=== PATIENT | male | born 1990 | race Caucasian/White ===

== ENCOUNTER 2016-12-03 23:43 | Emergency (ER) | payer BC ==
[~2016-12-03] VITALS: Ht 177.8 cm; Wt 104.3 kg
[~2016-12-03 23:43] MED LIST: METH10TA4 PO; METH5TAB4 PO; MULT-506 PO; SUMA50TA15 PO
[2016-12-03 23:45] VITALS: Ht 177.8 cm; Wt 104.3 kg
[2016-12-04] MEDS ORDERED: SODIUM CHLORIDE 0.9% 1000ML 1,000 ML IV STA ×3 (00:18→04:19)
[2016-12-04] MEDS ORDERED: ONDANSETRON INJ 2 MG/ML 2 ML VIAL IV STA (00:18)
[2016-12-04] MEDS ORDERED: MoRPHine SULFATE 10 MG/ML CARP/VIAL IV STA (00:18)
[2016-12-04 00:28] LABS: BASO % 0.1 %; BASO ABS # 0.01 K/uL (0-0.2); COMPLETE YES; EOS % 0.6 %; IG% 0.3 %; LYMPH % 12.7 %; MEAN CELL VOLUME 89.3 fL (80-100); MEAN CORPUSCULAR HEMOGLOBIN 29.5 pg (25-34); MEAN PLATELET VOLUME 9.2 fL (7.4-10.4); MONO % 7.4 %; NEUT % 78.9 %; PLATELET COUNT 398 K/uL (130-400); RED BLOOD COUNT 5.15 M/uL (4.7-6.1); WHITE BLOOD COUNT 18.06 K/uL (4.8-10.8)
[2016-12-04 00:47] LABS: BUN/CREATININE RATIO 6.8 (10-20); CALCIUM 9.2 mg/dl (8.5-10.1); POTASSIUM 3.9 mmol/L (3.5-5.1)
[2016-12-04 00:49] LABS: ALB/GLOB RATIO 0.9 (0.9-2)
[2016-12-04] MEDS ORDERED: OPTIRAY 320 IV PRN (01:15)
[2016-12-04 01:29] LABS: URINE APPEARANCE CLEAR (CLEAR); URINE BILIRUBIN NEG (NEG); URINE COLOR DK YELLOW; URINE EPITHELIAL CELL AUTO 0-5 /lpf (0-5); URINE NITRITE NEG (NEG); URINE PH 7.5 (4.5-7.5); URINE SPECIFIC GRAVITY 1.017 (1.000-1.030); UROBILINOGEN NEG (NEG); ZZUR CULT IF INDIC CLEAN CATCH NO
[2016-12-04] MEDS ORDERED: HYDROmorphone INJ 0.5 MG/0.5 ML SYR IV STA ×2 (01:33→03:52)
[2016-12-04 01:42] LABS: MANUAL MICROSCOPIC REQUIRED? NO; REVIEW REQ? NO; SULFASALICYLIC ACID NEG (NEG)
[2016-12-04] MEDS ORDERED: IMIPENEM/CILASTATIN IV 500 MG in DEXTROSE 5% 100ML 100 ML IV STA (02:36)
[2016-12-04] MEDS ORDERED: ACETAMINOPHEN IV 100 ML IV STA (02:57)
--- NOTE | 2016-12-04 03:10 | EMERGENCY ROOM VISIT NOTE ---
History First contact with patient: 23:54 Chief Complaint: GI ASSESSMENT Stated Complaint: RECTAL BLEEDING,CRAMPS Nursing Triage Summary: Left lower abdominal pain and rectal bleeding. History of same with diverticulitis. History of Present Illness The patient is a 26 year old male who presents to the Emergency Room with complaints of left lower abdominal pain and blood in his stools. The patient states that his symptoms have been ongoing for the past 2 days. He reports severe pain in his abdomen which he rates a 10/10. Pain is worse with movement. He has a history of diverticulitis and states that he had 2 flareups in July and January of last year. He has never needed hospitalized for these flareups. He denies history of abdominal surgery. He states that he has had cramping pain in the abdomen and decreased appetite. He has felt feverish. He denies any nausea/vomiting, chest pain, shortness of breath or urinary symptoms. The patient states he is otherwise healthy. Review of Systems A complete 10 point review of systems was reviewed with the patient with pertinent positives and negatives as per history of present illness. All else were negative. Past Medical/Surgical History Surgical Problems: (1) Artie teeth extracted Family History Diabetes mellitus Hypertension Social History Smoking Status: Current Every Day Smoker Alcohol Use: none Drug Use: none Marital Status: single Housing Status: lives with family Occupation Status: employed Current/Historical Medications Scheduled Methylphenidate (Ritalin), 10 MG PO QAM Methylphenidate (Ritalin), 5 MG PO QPM Scheduled PRN Sumatriptan Succinate (Imitrex), 50 MG PO UD PRN for Headache Physical Exam Vital Signs Date Time Temp Pulse Resp B/P (MAP) Pulse Ox O2 Delivery O2 Flow Rate FiO2 12/04/16 06:39 98 16 139/95 95 12/04/16 05:44 93 20 131/90 94 Room Air 12/04/16 05:05 37.0 95 16 99/60 95 Room Air 12/04/16 04:03 100 16 143/77 94 Room Air 12/04/16 03:28 103 12/04/16 03:19 38.0 107 16 147/90 94 Room Air 12/04/16 01:25 108 20 163/93 95 Room Air 12/03/16 23:45 37.6 109 16 157/100 96 Room Air Physical Exam VITALS: Vitals are noted on the nurse's note and reviewed by myself. Vital signs stable. GENERAL: This is a 26-year-old male, moaning in pain, well-developed well- nourished. MOUTH: Mucous membranes moist. HEART: Tachycardic, regular rhythm without murmurs gallops or rubs. LUNGS: Clear to auscultation bilaterally without wheezes, rales or rhonchi. ABDOMEN: Positive bowel sounds x 4. Soft, tenderness to palpation in the left lower quadrant and across the lower abdomen. No guarding or rebound tenderness. NEURO: Patient was alert and oriented to person place and time. Medical Decision & Procedures ER Provider Diagnostic Interpretation: CT ABDOMEN & PELVIS: Distal sigmoid wall thickening with surrounding inflammatory changes and 4.8 x 4.0 x 3.0 cm rim enhancing air/fluid collection in sun for both from inflamed segment of colon consistent with pericolonic abscess with apparent intramural component. Sigmoid diverticula are present in this region. Findings are suggestive of sigmoid perforation with pericolonic/intramural abscess, likely in the setting of acute sigmoid diverticulitis. Given similar location of diverticulitis on prior CT, recommend follow-up to exclude underlying pathology. Mildly prominent (although subcentimeter) retroperitoneal lymph nodes, likely reactive to 4 mentioned sigmoid diverticulitis. No bowel obstruction or free intraperitoneal air. Enlarged fatty liver. Radiologist: Veronica Deras MD Laboratory Results 12/04/16 00:10 Red Blood Count 5.15, Mean Corpuscular Volume 89.3, Mean Corpuscular Hemoglobin 29.5, Mean Corpuscular Hemoglobin Concent 33.0, Mean Platelet Volume 9.2, Neutrophils (%) (Auto) 78.9, Lymphocytes (%) (Auto) 12.7, Monocytes (%) (Auto) 7.4, Eosinophils (%) (Auto) 0.6, Basophils (%) (Auto) 0.1, Neutrophils # (Auto) 14.26, Lymphocytes # (Auto) 2.30, Monocytes # (Auto) 1.33, Eosinophils # (Auto) 0.10, Basophils # (Auto) 0.01 12/04/16 00:10 Test 12/04/16 00:00 12/04/16 00:10 Urine Color DK YELLOW Urine Appearance CLEAR (CLEAR) Urine pH 7.5 (4.5-7.5) Urine Specific [place] 1.017 (1.000-1.030) Urine Protein NEG (NEG) Urine Glucose (UA) NEG (NEG) Urine Ketones TRACE (NEG) Urine Occult Blood NEG (NEG) Urine Nitrite NEG (NEG) Urine Bilirubin NEG (NEG) Urine Urobilinogen NEG (NEG) Urine Leukocyte Esterase NEG (NEG) Urine WBC (Auto) 1-5 /hpf (0-5) Urine RBC (Auto) 0-4 /hpf (0-4) Urine Hyaline Casts (Auto) 1-5 /lpf (0-5) Urine Epithelial Cells (Auto) 0-5 /lpf (0-5) Urine Bacteria (Auto) NEG (NEG) White Blood Count 18.06 K/uL (4.8-10.8) Red Blood Count 5.15 M/uL (4.7-6.1) Hemoglobin 15.2 g/dL (14.0-18.0) Hematocrit 46.0 % (42-52) Mean Corpuscular Volume 89.3 fL (80-100) Mean Corpuscular Hemoglobin 29.5 pg (25-34) Mean Corpuscular Hemoglobin Concent 33.0 g/dl (32-36) Platelet Count 398 K/uL (130-400) Mean Platelet Volume 9.2 fL (7.4-10.4) Neutrophils (%) (Auto) 78.9 % Lymphocytes (%) (Auto) 12.7 % Monocytes (%) (Auto) 7.4 % Eosinophils (%) (Auto) 0.6 % Basophils (%) (Auto) 0.1 % Neutrophils # (Auto) 14.26 K/uL (1.4-6.5) Lymphocytes # (Auto) 2.30 K/uL (1.2-3.4) Monocytes # (Auto) 1.33 K/uL (0.11-0.59) Eosinophils # (Auto) 0.10 K/uL (0-0.5) Basophils # (Auto) 0.01 K/uL (0-0.2) RDW Standard Deviation 40.8 fL (36.4-46.3) RDW Coefficient of Variation 12.5 % (11.5-14.5) Immature Granulocyte % (Auto) 0.3 % Immature Granulocyte # (Auto) 0.06 K/uL (0.00-0.02) Anion Gap 8.0 mmol/L (3-11) Est Creatinine Clear Calc Drug Dose 133.0 ml/min Estimated GFR () 118.2 Estimated GFR (Non- 102.0 BUN/Creatinine Ratio 6.8 (10-20) Lactic Acid Level 1.5 mmol/L (0.4-2.0) Calcium Level 9.2 mg/dl (8.5-10.1) Total Bilirubin 0.8 mg/dl (0.2-1) Aspartate Amino Transf (AST/SGOT) 23 U/L (15-37) Alanine Aminotransferase (ALT/SGPT) 47 U/L (12-78) Alkaline Phosphatase 68 U/L (45-117) Total Protein 8.9 gm/dl (6.4-8.2) Albumin 4.1 gm/dl (3.4-5.0) Globulin 4.8 gm/dl (2.5-4.0) Albumin/Globulin Ratio 0.9 (0.9-2) Lipase 105 U/L (73-393) Medications Administered Medications (Trade) Dose Ordered Sig/Allie Route Start Time Stop Time Status Last Admin Dose Admin Sodium Chloride 1,000 ml @ 999 mls/hr Q1H1M STAT IV 12/04/16 00:18 12/04/16 01:18 DC 12/04/16 00:26 999 MLS/HR Ondansetron HCl (Zofran Inj) 4 mg NOW STAT IV 12/04/16 00:18 12/04/16 00:20 DC 12/04/16 00:26 4 MG Morphine Sulfate (MoRPHine SULFATE INJ) 6 mg NOW STAT IV 12/04/16 00:18 12/04/16 00:20 DC 12/04/16 00:27 6 MG Hydromorphone HCl (Dilaudid Inj) 0.5 mg NOW STAT IV 12/04/16 01:33 12/04/16 01:34 DC 12/04/16 01:38 0.5 MG Imipenem/ Cilastatin Sodium 500 mg/Dextrose 110 ml @ 100 mls/hr NOW STAT IV 12/04/16 02:36 12/04/16 03:41 DC 12/04/16 03:21 100 MLS/HR Acetaminophen 100 ml @ 400 mls/hr NOW STAT IV 12/04/16 02:57 12/04/16 03:11 DC 12/04/16 03:04 400 MLS/HR Sodium Chloride 1,000 ml @ 999 mls/hr Q1H1M STAT IV 12/04/16 03:06 12/04/16 04:06 DC 12/04/16 03:21 999 MLS/HR Hydromorphone HCl (Dilaudid Inj) 0.5 mg NOW STAT IV 12/04/16 03:52 12/04/16 03:53 DC 12/04/16 04:00 0.5 MG Sodium Chloride 1,000 ml @ 80 mls/hr [id number] STAT IV 12/04/16 04:19 12/04/16 16:48 12/04/16 05:04 80 MLS/HR Nicotine (Nicoderm Cq 21MG Patch) 1 patch NOW STAT TD 12/04/16 04:26 12/04/16 04:28 DC 12/04/16 05:01 1 PATCH Fentanyl Citrate (Fentanyl Inj) 50 mcg NOW STAT IV 12/04/16 06:00 12/04/16 06:01 DC 12/04/16 06:05 50 MCG ED Course The patient was evaluated as above. Labs were drawn and IV access was obtained. Patient was medicated with 1 L normal saline solution, 6 mg of morphine IV and [address] of the abdomen and pelvis was performed and read by statrad as above. Patient complains of continued pain after CT and was given 0.5 mg Dilaudid IV. Blood cultures were drawn. Patient was given a dose of Primaxin. Case was discussed with the general surgeon on-call, Dr. Gallegos. He recommended transfer to a facility with interventional radiology. I discussed the case with Dr. Garcia of general surgery at [facility]. She requested that I speak with the radiologist to confirm that there was a drainable abscess. Case was discussed with the statrad radiologist, Dr. Deras. She confirmed that there was an abscess and is unsure if it will drainable by IR. Case was again discussed with Dr. Garcia. She spoke with the ER and they will accept the patient in transfer. Findings were discussed with the patient. He verbalized his understanding. He was given 0.5 mg Dilaudid for pain. Patient was transferred via ALS to [facility] for further care. Medical Decision Differential diagnosis includes diverticulitis, colitis, fistula, abscess, perforation, among others. The patient is a 26-year-old male with past medical history of diverticulitis who presents today complaining of left lower quadrant pain and rectal bleeding. Labs revealed a leukocytosis of 18,000. Lactic acid was not elevated. IV fluids were started immediately given patient's tachycardia. He was given IV pain medication and IV Tylenol for fever. CT scan showed findings consistent with perforation and abscess secondary to diverticulitis. Case was discussed with the general surgeon on-call, Dr. Gallegos, who recommended transfer to a facility with interventional radiology. Case was discussed with general surgery at [facility], who accepted the patient in transfer. The patient remained stable throughout his stay in the emergency department and was transferred via ALS to [facility]. Medication Reconcilliation Current Medication List: was personally reviewed by me Blood Pressure Screening Patient's blood pressure: Elevated blood pressure Blood pressure disposition: Elevated BP felt to be situational Impression Primary Impression: Diverticulitis of large intestine with perforation and abscess Departure Information Referrals Freeman Wang,D.OYamil (PCP) Patient Instructions [facility] Problem Qualifiers Primary Impression: Diverticulitis of large intestine with perforation and abscess Diverticulitis bleeding: with bleeding Qualified Codes: K57.21 - Diverticulitis of large intestine with perforation and abscess with bleeding
[2016-12-04] MEDS ORDERED: NICOTINE 21 MG/24 HR TDSY TD STA (04:26)
[2016-12-04 05:05] VITALS: TEMP 37
[2016-12-04] MEDS ORDERED: FENTANYL CITRATE INJ 50 MCG/1 ML 2 ML VIAL IV STA (06:00)
[2016-12-04 06:39] VITALS: BP 139/95; PULSE 98; O2SAT 95
--- NOTE | 2016-12-04 07:32 | DIAGNOSTIC IMAGING REPORT ---
ABDOMEN AND PELVIS CT WITH IV CONTRAST CT DOSE: 916.59 mGy.cm HISTORY: Left lower quadrant abdominal pain. TECHNIQUE: Multiaxial CT images of the abdomen and pelvis were performed following the use of intravenous contrast. A dose lowering technique was utilized adhering to the principles of ALARA. COMPARISON STUDY: Abdomen and pelvis CT 12/26/2015. FINDINGS: The lung bases are clear. Severe hepatic steatosis, unchanged. The gallbladder, spleen, adrenal glands, pancreas, and kidneys are unremarkable. There are few prominent retroperitoneal lymph nodes which have slightly increased in size. Dominant lymph node measures 9 mm. These may be reactive. Normal appendix. Normal bladder. Tiny fat-containing left inguinal hernia. Thickening within the mid sigmoid colon with surrounding pericolonic fat stranding consistent with acute diverticulitis. There is a multiloculated perisigmoid abscess which measures approximately 4.7 x 3.7 cm. IMPRESSION: 1. Acute sigmoid diverticulitis with a 4.7 x 3.7 cm pericolonic abscess. Follow-up is recommended once the patient's diverticulitis has resolved to exclude the less likely possibility of underlying colonic lesion. 2. Hepatic steatosis. 3. Prominent retroperitoneal lymph nodes which may be reactive. This also bears watching on future examinations. Electronically signed by: Haseeb Vasquez M.D. 12/04/2016 7:30 AM Dictated Date/Time: 12/04/2016 7:25 AM
== END 2016-12-04 06:42 | disposition short-term general hospital (02) ==
LOC: C.EDB 23:44
DX: K57.21 Diverticulitis of large intestine with perforation and abscess with bleeding (principal); R00.0 Tachycardia, unspecified; F17.200 Nicotine dependence, unspecified, uncomplicated; Z83.3 Family history of diabetes mellitus; Z82.49 Family history of ischemic heart disease and other diseases of the circulatory system

== ENCOUNTER 2017-05-02 21:33 | Inpatient (IN) | payer BC, OTHER ==
[~2017-05-02] VITALS: Ht 177.8 cm; Wt 100.2 kg
[~2017-05-02 21:33] MED LIST changes: +ASPI-390 PO; +CHN/1 PO; +DOXY100C76 PO; +IBUP-103 PO; -MULT-506 PO
--- NOTE | 2017-05-02 22:04 | EMERGENCY ROOM VISIT NOTE ---
History Report prepared by Roman: Norbert Fernandez Under the Supervision of: Dr. Gustavo Quinn M.D. First contact with patient: 21:44 Chief Complaint: MENTAL HEALTH EVALUATION Stated Complaint: STRESS, OVERWHELMED, NOT HIMSELF History of Present Illness The patient is a 26 year old male who presents to the Emergency Room with complaints of worsening depression symptoms recently. He states he has felt depressed for years. He is accompanied with his fiance, who states she did not know of his depression before recently. She states that he has not slept for the past 2 days, along with "not acting like himself". He has associated symptoms of auditory hallucinations for years. He states the hallucinations tell him to "pay attention". He denies suicidal and homicidal ideations. Per fiance, she states he recently had a diverticulitis surgery done on February 23 which has forced him to be on sick leave from work without pay. 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 Fiance states that the financial burden has worsened the depressive episodes. Patient denies being diagnosed clinically with depression. He states he only mentioned the depressive episodes once to his PCP, Dr. Wang. He denies having fevers, chills, nausea, and vomiting. He denies a family history of similar symptoms. He admits to occasional alcohol and marijuana use. Source of History: patient, spouse/significant other (Fiance) Onset: Recent Timing: worsening Associated Symptoms: No fevers, No chills, No nausea, No vomiting Note: Patient has auditory hallucinations. He denies SI and HI. Review of Systems See HPI for pertinent positives and negatives. A total of ten systems were reviewed and were otherwise negative. Past Medical & Surgical Surgical Problems: (1) Ferdinand teeth extracted Family History Diabetes mellitus Hypertension Social History Smoking Status: Current Every Day Smoker Alcohol Use: none Drug Use: none Marital Status: single Housing Status: lives with family Occupation Status: employed Current/Historical Medications Scheduled Methylphenidate (Ritalin), 10 MG PO QAM Methylphenidate (Ritalin), 5 MG PO 1600 Varenicline (Chantix), 1 MG PO BID Scheduled PRN Rpvkjcb-Dqhyghnesftev-Zwvjnspi (Excedrin Migraine), 2 TABS PO UD PRN for Migraine Diphenhydramine Hcl (Benadryl), 50 MG PO Q4H PRN for Sleep Ibuprofen Tab (Advil), 400 MG PO UD PRN for Pain Sumatriptan Succinate (Imitrex), 50 MG PO UD PRN for Headache Allergies Coded Allergies: Sulfamethoxazole w/Trimethoprim (Verified Allergy, Intermediate, rash, ) as per ED doctor on this visit Amoxicillin (Verified Allergy, Unknown, RASH, 05/02/17) Physical Exam Vital Signs Date Time Temp Pulse Resp B/P (MAP) Pulse Ox O2 Delivery O2 Flow Rate FiO2 05/02/17 21:40 36.7 120 20 187/118 96 Room Air Physical Exam GENERAL: Awake, alert, depressed affect, in no distress HENT: Normocephalic, atraumatic. Oropharynx unremarkable. EYES: Normal conjunctiva. Sclera non-icteric. NECK: Supple. No nuchal rigidity. FROM. No JVD. RESPIRATORY: Clear to auscultation. CARDIAC: Regular rate, normal rhythm. Extremities warm and well perfused. Pulses equal. ABDOMEN: LLQ colostomy site with no erythema or edema. Soft, non-distended. No tenderness to palpation. No rebound or guarding. No masses. RECTAL: Deferred. MUSCULOSKELETAL: Chest examination reveals no tenderness. The back is symmetrical on inspection without obvious abnormality. There is no CVA tenderness to palpation. No joint edema. LOWER EXTREMITIES: Calves are equal size bilaterally and non-tender. No edema. No discoloration. NEURO: Normal sensorium. No sensory or motor deficits noted. PSYCH: Denies SI and HI. Admits to auditory hallucinations. SKIN: No rash or jaundice noted. Medical Decision & Procedures Laboratory Results 05/02/17 22:13 Red Blood Count 5.36, Mean Corpuscular Volume 88.4, Mean Corpuscular Hemoglobin 30.4, Mean Corpuscular Hemoglobin Concent 34.4, Mean Platelet Volume 9.1, Neutrophils (%) (Auto) 71.2, Lymphocytes (%) (Auto) 21.4, Monocytes (%) (Auto) 5.6, Eosinophils (%) (Auto) 1.2, Basophils (%) (Auto) 0.4, Neutrophils # (Auto) 9.16, Lymphocytes # (Auto) 2.75, Monocytes # (Auto) 0.72, Eosinophils # (Auto) 0.16, Basophils # (Auto) 0.05 05/02/17 22:13 Test 05/02/17 21:50 05/02/17 22:13 05/02/17 23:21 Urine Opiates Screen NEG (NEG) Urine Methadone, Qualitative NEG (NEG) Urine Barbiturates NEG (NEG) Urine Phencyclidine (PCP) Level NEG (NEG) Ur Amphetamine/Methamphetamine NEG (NEG) MDMA (Ecstasy) Screen NEG (NEG) Urine Benzodiazepines Screen NEG (NEG) Urine Cocaine Metabolite NEG (NEG) Urine Marijuana (THC) POS (NEG) White Blood Count 12.87 K/uL (4.8-10.8) Red Blood Count 5.36 M/uL (4.7-6.1) Hemoglobin 16.3 g/dL (14.0-18.0) Hematocrit 47.4 % (42-52) Mean Corpuscular Volume 88.4 fL (80-100) Mean Corpuscular Hemoglobin 30.4 pg (25-34) Mean Corpuscular Hemoglobin Concent 34.4 g/dl (32-36) Platelet Count 349 K/uL (130-400) Mean Platelet Volume 9.1 fL (7.4-10.4) Neutrophils (%) (Auto) 71.2 % Lymphocytes (%) (Auto) 21.4 % Monocytes (%) (Auto) 5.6 % Eosinophils (%) (Auto) 1.2 % Basophils (%) (Auto) 0.4 % Neutrophils # (Auto) 9.16 K/uL (1.4-6.5) Lymphocytes # (Auto) 2.75 K/uL (1.2-3.4) Monocytes # (Auto) 0.72 K/uL (0.11-0.59) Eosinophils # (Auto) 0.16 K/uL (0-0.5) Basophils # (Auto) 0.05 K/uL (0-0.2) RDW Standard Deviation 45.1 fL (36.4-46.3) RDW Coefficient of Variation 13.9 % (11.5-14.5) Immature Granulocyte % (Auto) 0.2 % Immature Granulocyte # (Auto) 0.03 K/uL (0.00-0.02) Anion Gap 9.0 mmol/L (3-11) Est Creatinine Clear Calc Drug Dose 117.9 ml/min Estimated GFR () 106.5 Estimated GFR (Non- 91.9 BUN/Creatinine Ratio 12.0 (10-20) Calcium Level 8.5 mg/dl (8.5-10.1) Total Bilirubin 0.4 mg/dl (0.2-1) Direct Bilirubin < 0.1 mg/dl (0-0.2) Aspartate Amino Transf (AST/SGOT) 21 U/L (15-37) Alanine Aminotransferase (ALT/SGPT) 37 U/L (12-78) Alkaline Phosphatase 82 U/L (45-117) Total Protein 8.7 gm/dl (6.4-8.2) Albumin 4.3 gm/dl (3.4-5.0) Globulin 4.4 gm/dl (2.5-4.0) Albumin/Globulin Ratio 1.0 (0.9-2) Thyroid Stimulating Hormone (TSH) 1.180 uIu/ml (0.300-4.500) Ethyl Alcohol mg/dL < 3.0 mg/dl (0-3) Urine Color YELLOW Urine Appearance CLEAR (CLEAR) Urine pH 6.0 (4.5-7.5) Urine Specific [place] 1.013 (1.000-1.030) Urine Protein NEG (NEG) Urine Glucose (UA) NEG (NEG) Urine Ketones TRACE (NEG) Urine Occult Blood NEG (NEG) Urine Nitrite NEG (NEG) Urine Bilirubin NEG (NEG) Urine Urobilinogen NEG (NEG) Urine Leukocyte Esterase NEG (NEG) Laboratory results reviewed by me Medications Administered Medications (Trade) Dose Ordered Sig/Allie Route Start Time Stop Time Status Last Admin Dose Admin Risperidone (Risperdal Tab) 0.5 mg NOW STAT PO 05/03/17 00:28 05/03/17 00:30 DC 05/03/17 00:41 0.5 MG ED Course 2151: The patient was evaluated in room A7. A complete history and physical exam was performed. 0045: Upon reexamination, the patient will be further evaluated. I discussed the test results and treatment plan with him. The patient will be evaluated for further management. Medical Decision I reviewed the patient's past medical history, medications, and the nursing notes as described above. Differential Diagnosis: Major depressive disorder, bipolar disorder with psychotic features The patient is a 26 y/o gentleman who presents to the emergency department with worsening depressive mood with auditory hallucinations per HPI. On arrival the patient has depressed affect but is in NAD, AFVSS. Denies HI/SI. WBC elevated to 12.8 nonspecific. Labs otherwise unremarkable. Patient medically cleared. Psych CM evaluation reveals further concerns including nonsensical speech and patient report of attraction to children. Voluntary admission. 201 signed. Admitted to 3S. Medication Reconcilliation Current Medication List: was personally reviewed by me Blood Pressure Screening Patient's blood pressure: Elevated blood pressure Blood pressure disposition: Elevated BP felt to be situational Impression Primary Impression: Depression Additional Impression: Psychosis Scribe Attestation The scribe's documentation has been prepared under my direction and personally reviewed by me in its entirety. I confirm that the note above accurately reflects all work, treatment, procedures, and medical decision making performed by me. Departure Information Dispostion Being Evaluated By Hospitalist Referrals No Doctor, Assigned (PCP) Forms HOME CARE DOCUMENTATION FORM, IMPORTANT VISIT INFORMATION Patient Instructions My [facility] Problem Qualifiers
[2017-05-02 22:32] LABS: BASO % 0.4 %; BASO ABS # 0.05 K/uL (0-0.2); EOS % 1.2 %; EOS ABS # 0.16 K/uL (0-0.5); HEMATOCRIT 47.4 % (42-52); HEMOGLOBIN 16.3 g/dL (14.0-18.0); IG# 0.03 K/uL (0.00-0.02); LYMPH % 21.4 %; LYMPH ABS # 2.75 K/uL (1.2-3.4); MEAN CELL VOLUME 88.4 fL (80-100); MEAN CORPUSCULAR HEMOGLOBIN 30.4 pg (25-34); MEAN CORPUSCULAR HGB CONC 34.4 g/dl (32-36); MEAN PLATELET VOLUME 9.1 fL (7.4-10.4); MONO % 5.6 %; MONO ABS # 0.72 K/uL (0.11-0.59); NEUT % 71.2 %; NEUT ABS # 9.16 K/uL (1.4-6.5); PLATELET COUNT 349 K/uL (130-400); RED CELL DISTRIBUTION WIDTH CV 13.9 % (11.5-14.5); RED CELL DISTRIBUTION WIDTH SD 45.1 fL (36.4-46.3); WHITE BLOOD COUNT 12.87 K/uL (4.8-10.8)
[2017-05-02] MEDS ORDERED: DIPH25CA5 PO (22:41)
[2017-05-02 22:57] LABS: ALBUMIN 4.3 gm/dl (3.4-5.0); ALT/SGPT 37 U/L (12-78); BLOOD UREA NITROGEN 13 mg/dl (7-18); CALCIUM 8.5 mg/dl (8.5-10.1); CARBON DIOXIDE 25 mmol/L (21-32); CREATININE 1.09 mg/dl (0.60-1.40); GLUCOSE 189 mg/dl (70-99); POTASSIUM 3.9 mmol/L (3.5-5.1); SODIUM 137 mmol/L (136-145)
[2017-05-02 23:08] LABS: ALKALINE PHOSPHATASE 82 U/L (45-117); AST/SGOT 21 U/L (15-37); TOTAL PROTEIN 8.7 gm/dl (6.4-8.2)
[2017-05-03] MEDS ORDERED: RISPERIDONE 0.5 MG TAB PO STA (00:28)
[2017-05-03] MEDS ORDERED: NURSING VERBAL MED ORDER ONE (00:45)
[2017-05-03 01:00] VITALS: O2SAT 98
[2017-05-03] MEDS ORDERED: MAGNESIUM HYDROXIDE SUSP 30 ML UDC PO PRN (01:15)
[2017-05-03] MEDS ORDERED: BISMUTH SUBSALICYLATE PER ML OMNICELL CHARGE PO PRN (01:15)
[2017-05-03] MEDS ORDERED: ACETAMINOPHEN 325 MG TAB PO PRN (01:15)
[2017-05-03] MEDS ORDERED: ALUMINUM/MAGNESIUM SUSP 30 ML UDC PO PRN (01:15)
[2017-05-03] MEDS ORDERED: SODIUM CHLORIDE 0.65% NA SOLN 45 ML (OCEAN) PRN (01:15)
[2017-05-03] MEDS ORDERED: RISPERIDONE 0.5 MG TAB PO PRN (01:30)
[2017-05-03] MEDS: hydrOXYzine HCL 25 MG TAB PO PRN ×2 (01:30→03:02)
[2017-05-03 01:37] VITALS: BP 155/109; TEMP 36.9; Ht 177.8 cm; Wt 100.2 kg
[2017-05-03 07:52] VITALS: BP 127/82; PULSE 88; TEMP 36.4
--- NOTE | 2017-05-03 12:20 | Psychiatric History & Physical ---
History Date of Service May 03, 2017. Identifying Data Norbert Keenan is a 26-year-old male admitted on May 03, 2017 at 00:50 who currently lives with finance in [place], [place] Norbert Keenan was admitted on a 201 voluntary. Patient is admitted from home. The patient was brought to the ED by family. Information provided by the patient is considered to be reliablle but history limited some by degree of current psychotic symptoms Chief Complaint "voices in my head, confused". History of Present Illness Pt having acute psychotic symptoms with reported h/o Ritalin for concentration rx'd by pcp at 10mg am and 5mg pm per pt and Chantix for helping to quit smoking. smoking reduced but ceased and at times smoking over 1/2 ppd lately. ( 1ppd is baseline). pt smoking of cannabis increased to daily from occasional usage in past. pt on medical leave past 2 or so months due to diverticulitis and surgery with colostomy that is aiming for reversal. Pt feels depressed since on medical leave over medical condition and financial concerns and how not working past couple months. pt has past tendency of frequent heavy drinking but pulled back (not fully) in his drinking since dx with diverticulitis. last drank on with 4 drinks no report of heavy drinking in atleast 2 plus weeks if not longer. pt unable to answer time line questions. appears to use adderall not prescribe in recent days but not able to give details of amount or frequency or if taking Ritalin recently, (pt at first stated been off ritalin but then stated was not sure with psychotic features appearing to confound history from being clearly obtained. pt has some thought blocking that fluctuates in intensity during interview process and appears to be a little milder then last night in the er. pt reported some h/o command AH but only to behave in a good/preferred way. Pt endorsed Ah of voices in his head, unclear how long this has been present but appears that has been quite significant at least for a few days now if not longer. pt endorsed Thought insertion but denied IOR. pt endorsed some paranoid thinking, no delusional thinking noted. pt having racing thoughts, and limited sleep but denied other manic related symptoms. denied SI. denied HI. endorsed a couple panic attacks the past few days only. endorsed feeling anxious. denied OCD symptoms. denied other substance concerns including rx or otc then above. endorsed Benadryl usage to help with sleep with it helping only sometimes. 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 states relationship with gf is "complicated" significantly impaired concentration with pt frequently stating that was not paying attention needing senior medical writer to repeat what was stated to him with then pt able to repeat it back to show obtained on second go through Past Psychiatric History Current OP Treatment: no current treatment (beyond PCP rx'ing ritalin and chantix ) Prior OP Treatment: no prior treatment Prior Psych Hospitalizations: none Access to a Gun: No Suicide Attempts: Yes (attempted to suffocate self once with a blanket when 11 or younger per pt) Past Medical/Surgical History History of Concussion/Seizure: No (1) Psychosis (2) Diverticulitis of large intestine with perforation and abscess coleotomy bag (with plans for reversal) Allergies Allergies: Coded Allergies: Sulfamethoxazole w/Trimethoprim (Verified Allergy, Intermediate, rash, ) as per ED doctor on this visit Amoxicillin (Verified Allergy, Unknown, RASH, 05/02/17) Home Medications Scheduled Varenicline (Chantix), 1 MG PO BID Scheduled PRN Kgnshzp-Utprztfrtpvpp-Riagblmx (Excedrin Migraine), 2 TABS PO UD PRN for Migraine Diphenhydramine Hcl (Benadryl), 50 MG PO Q4H PRN for Sleep Ibuprofen Tab (Advil), 400 MG PO UD PRN for Pain Sumatriptan Succinate (Imitrex), 50 MG PO UD PRN for Headache Family History Diabetes mellitus Hypertension History of Suicide: No History of Substance Abuse: Yes (uncle maternal alcohol) paternal GF heart attack Alcohol Use Alcohol Use In Past 12 Months: Yes (occassional) AUDIT Total Score: 1 h/o heavy drinking of alcohol that has lessened significantly following diverticulitis diagnosis, has still drank alcohol occasionally in past couple months, last known alcohol usage was 04/27/17 of about 4 drinks. no "benders" in at least couple weeks or longer. does get tremors after benders in the past Smoking Use Smoking Status: Current Every Day Smoker (reduced from 1 ppd to various amounts but at times up to 1ppd while on chantic recently, has attempted to quit with medicinal aids "many times") Substance History cannabis was occasionally but increased to daily as been off work on medical leave past couple months has recent taken Adderall ir off unknown amounts and frequency recently (pt unable to give more detail history due to psychotic symptoms) denied other substance usage then above Personal History Education: other (1 yr culinary program at [employer] - completed ) Relationship History: never , other (is engaged ) Children: none Spiritual Affiliation: not baptist Legal History: none Psychological Trauma History: Denies Hx Traumatic Event Review of Systems Constitutional: denies no symptoms reported, denies see HPI, denies chills, denies diaphoresis, denies fever, denies malaise, denies weakness, denies other Eyes: denies: no symptoms, as stated in HPI, eye pain, tearing, itching, redness, discharge, double vision, visual changes, blurred vision, photophobia, other ENT: denies: no symptoms reported, see HPI, ear pain, ear discharge, loss of hearing, tinnitus, nasal pain, nasal congestion, rhinorrhea, epistaxis, sore throat, stidor, throat swelling, mouth pain, mouth swelling, dental pain, gum swelling, other Cardiovascular: denies: no symptoms reported, see HPI, chest pain, chest tightness, chest pressure, diaphoresis, palpitations, syncope, other Respiratory: denies: no symptoms reported, see HPI, cough, orthopnea, short of breath, stridor, wheezing, sputum production, cyanosis, HUBER, PND, other Gastrointestinal: diarrhea (once today denied other times recently) Musculoskeletal: no symptoms reported, denies see HPI, denies back pain, denies gout, denies joint pain, denies joint swelling, denies muscle pain, denies muscle stiffness, denies neck pain, denies other Integumentary: denies no symptoms reported, denies see HPI, denies change in color, denies change in hair/nails, denies dryness, denies lesions, denies lumps , denies rash, denies other Neurologic: reports: memory loss, other (migraines a few times a month), denies : no symptoms, see HPI, headache, numbness, paresthesias, pre-existing deficit, seizure, tingling, tremors, general weakness, tics, focal weakness, vertigo, lethargy, dizziness Examination Physical Examination A physical exam was performed in the ER prior to admission to the unit by Dr. Quinn . I accept that physical as correct/medical clearance for the inpatient physical exam. Vital Signs Vital Signs Past 12 Hours Date Time Temp Pulse Resp B/P (MAP) Pulse Ox O2 Delivery O2 Flow Rate FiO2 05/03/17 07:52 36.4 88 16 127/82 05/03/17 01:37 36.9 20 155/109 05/03/17 01:00 89 20 161/99 98 Laboratory Results Last 24 Hours Test 05/02/17 21:50 05/02/17 22:13 05/02/17 23:21 Urine Opiates Screen NEG Urine Methadone, Qualitative NEG Urine Barbiturates NEG Urine Phencyclidine (PCP) Level NEG Ur Amphetamine/Methamphetamine NEG MDMA (Ecstasy) Screen NEG Urine Benzodiazepines Screen NEG Urine Cocaine Metabolite NEG Urine Marijuana (THC) POS White Blood Count 12.87 K/uL Red Blood Count 5.36 M/uL Hemoglobin 16.3 g/dL Hematocrit 47.4 % Mean Corpuscular Volume 88.4 fL Mean Corpuscular Hemoglobin 30.4 pg Mean Corpuscular Hemoglobin Concent 34.4 g/dl Platelet Count 349 K/uL Mean Platelet Volume 9.1 fL Neutrophils (%) (Auto) 71.2 % Lymphocytes (%) (Auto) 21.4 % Monocytes (%) (Auto) 5.6 % Eosinophils (%) (Auto) 1.2 % Basophils (%) (Auto) 0.4 % Neutrophils # (Auto) 9.16 K/uL Lymphocytes # (Auto) 2.75 K/uL Monocytes # (Auto) 0.72 K/uL Eosinophils # (Auto) 0.16 K/uL Basophils # (Auto) 0.05 K/uL RDW Standard Deviation 45.1 fL RDW Coefficient of Variation 13.9 % Immature Granulocyte % (Auto) 0.2 % Immature Granulocyte # (Auto) 0.03 K/uL Sodium Level 137 mmol/L Potassium Level 3.9 mmol/L Chloride Level 104 mmol/L Carbon Dioxide Level 25 mmol/L Anion Gap 9.0 mmol/L Blood Urea Nitrogen 13 mg/dl Creatinine 1.09 mg/dl Est Creatinine Clear Calc Drug Dose 117.9 ml/min Estimated GFR () 106.5 Estimated GFR (Non- 91.9 BUN/Creatinine Ratio 12.0 Random Glucose 189 mg/dl Calcium Level 8.5 mg/dl Total Bilirubin 0.4 mg/dl Direct Bilirubin < 0.1 mg/dl Aspartate Amino Transf (AST/SGOT) 21 U/L Alanine Aminotransferase (ALT/SGPT) 37 U/L Alkaline Phosphatase 82 U/L Total Protein 8.7 gm/dl Albumin 4.3 gm/dl Globulin 4.4 gm/dl Albumin/Globulin Ratio 1.0 Thyroid Stimulating Hormone (TSH) 1.180 uIu/ml Ethyl Alcohol mg/dL < 3.0 mg/dl Urine Color YELLOW Urine Appearance CLEAR Urine pH 6.0 Urine Specific [place] 1.013 Urine Protein NEG Urine Glucose (UA) NEG Urine Ketones TRACE Urine Occult Blood NEG Urine Nitrite NEG Urine Bilirubin NEG Urine Urobilinogen NEG Urine Leukocyte Esterase NEG Mental Examination During interview pt is: alert and oriented, cooperative Appearance: appropriately dressed Eye contact is: fair Motor behavior is: steady gait & station, no abnormal motor movements Speech: other (delay in speech, monotoned ) Affect: flat Mood is: anxious Thought process: blocking (of various degrees during assessment) Thought content: paranoid, thought insertion Hallucinations: auditory (with appearing to respond to internal stimuli at times ), denies visual Cognition: other (impaired concentration and attention and memory, struggles with any questions about time frame) Intelligence estimated to be: other (difficult to assess given level of psychotic symptoms) Insight: impaired Judgement: impaired Impression / Recommendations Impression 26 year old male with acute psychotic symptoms on medical leave for surgery for diverticulitis with colostomy (aiming for reversal in over a month) . Pt has increased cannabis usage to daily, sleep worsened, depressive symptoms with medial concerns and medical leave, and on ritalin (unknown compliance) and self taking Adderall recently. on Chantix to hep quit smoking with reduction only of smoking cigs. 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 leave) Needs: outpt mental health treatment providers, abstaining from substances, Risk Factors Assessment Male: Yes : Yes Access to guns: No Health problems: Yes Mental Health Diagnoses: Yes Substance use disorders: Yes Previous psychiatric stay: No Smoker: Yes Protective Factors Assessment Mosque beliefs: No : No Responsible for young children: No Employed: No Recommendations (1) Psychosis - elopement precautions - reality testing -aftercare arrangements for outpt treatment -[facility], individual and group therapy while on the unit - pt rescinded 72 hour notice after being seen by psychiatrist on unit, was scared and more comfortable now per pt -risperdal ODT form 0.5mg am and 1mg hs with risperdal odt 0.5mg prn up to tid prn psychosis/agitation after review of r/b/a -klonopin 0.5mg bid prn for anxiety/insomnia -NELA for gf and mother to be obtained for collateral, aim for family meetings as well -fasting lipids and glucose since rx'ing risperdal hold ritalin, reviewed how psychostimulants can precipitate and aggravate psychotic symptoms and encourage to not use psychostimulants for time being as well reviewed how cannabis can precipitate and aggravate psychotic symptoms and encourage to abstain reviewed alcohol intoxation//withdrawal can bring out psychotic symptoms to more fully assess substance usage concerns and consider substance treatment options as appropriate given above substance usage , as psychosis clears hold Chantix since could precipitate and aggravate psychotic symptoms , pt reports a number of past trials (unclear details due to psychotic symptoms) consider resuming chantix if was effective in past and only if tolerated it well previously , for now nicotine patches and gum with pt having used those in past (failed wellbutrin trial) (2) Diverticulitis of large intestine with perforation and abscess -allow belt for colostomy bag -monitor for symptoms (3) Migraine continue outpt meds for migraine treatment if occurs (4) Cigarette nicotine dependence, uncomplicated hold Chantix since could precipitate and aggravate psychotic symptoms , pt reports a number of past trials (unclear details due to psychotic symptoms) consider resuming Chantix if was effective in past and only if tolerated it well previously , for now nicotine patches and gum with pt having used those in past (failed wellbutrin trial) nicotine patch 14mg 1 topically a day (pt prefers this dose and smoking is 1/4-1 /2 ppd but sometmes more lately) and 2mg nicotine gum prn hourly CPT Code Initial Hospital Care: 27130
[2017-05-03] MEDS ORDERED: SUMATRIPTAN SUCCINATE 50 MG TAB PO PRN (12:30)
[2017-05-03] MEDS: NICOTINE 14 MG/24 HR TDSY TD SCH ×2 (12:30→13:31)
[2017-05-03] MEDS: CLONAZEPAM 0.5 MG TAB PO PRN ×2 (12:35→17:44)
[2017-05-03] MEDS ORDERED: RISPERIDONE ODT 0.5MG PO SCH (13:30)
[2017-05-03] MEDS: RISPERIDONE ODT 0.5MG PO PRN (14:34)
[2017-05-03] MEDS: RISPERIDONE ODT 1MG PO SCH (22:23)
[2017-05-04] MEDS: hydrOXYzine HCL 25 MG TAB PO PRN ×4 (00:46→21:04)
[2017-05-04] MEDS: RISPERIDONE ODT 0.5MG PO PRN ×3 (02:41→17:13)
[2017-05-04 06:51] VITALS: BP_SYST 145; BP_SYST 151; BP_DIAS 109; BP_DIAS 96; PULSE 101; PULSE 99; TEMP 36.9
[2017-05-04] MEDS: NICOTINE 14 MG/24 HR TDSY TD SCH (08:30)
[2017-05-04] MEDS: RISPERIDONE ODT 0.5MG PO SCH (08:30)
[2017-05-04] MEDS: CLONAZEPAM 0.5 MG TAB PO PRN ×2 (11:19→17:27)
[2017-05-04] MEDS: NICOTINE POLACRILEX 2 MG GUM MT PRN (11:58)
--- NOTE | 2017-05-04 18:41 | Psychiatric Progress Notes ---
Progress Note Date of Service May 04, 2017. Chief Complaint "overwhelmed". Subjective Patient was seen & assessed interval progress reviewed with nursing. pt shared about his longstanding snorting of ritalin and Adderall and how wants to address his "addictions" He is wanting help to improve his current struggles and with his addiction. He has been improving in his drinking of alcohol but finds this is a struggle as well. He feels that his cannabis usage is less difficult for him to contain despite the increase to daily usage lately. He struggles with quitting smoking but has not been taking the chantix regularly and wonders if that was why he was smoking 1/2-1ppd a lot of the time lately. He is open to inpt substance rehab once his thinking is more clear. Pt was seen after he obtained prn risperdal and klonopin doses after stepping out of group due to finding group too overwhelming given his trouble concentration and having thought disorder symptoms including AH that can not make out, racing jumbled thoughts, confusion about his sense of things, and some thought insertion. only time of any thought blocking was when financial underwriter inquired about what was pt ruminating/stressed about and once pt spoke he indicated that he would prefer to not address that subject for now since realizing that his thoughts are not clear and thus might not be accurate or helpful to process that subject right now. Pt ask financial underwriter to repeat what was said a couple times since he zoned out a few times. Pt endorsed longstanding issues with concentration and trouble processing in a milder manner his whole life and why he was given ritalin. Pt is unsure who long actual psychotic symptoms have been present though. He denied SI or HI. He denied VH or IOR. Pt feels risperdal is helping him and feels comfortable on the unit. He denied desire to try to leave the unit and is glad to be getting the help and wants to stay as long as he can to obtain more help Review of Systems Constitutional: No fever, No chills, No sweats, No weight loss, No weakness, No fatigue, No problem reported ENT: No hearing loss, No unusual epistaxis, No nasal symptoms, No sore throat, No tinnitus, No dental problems, No trouble swallowing, No problem reported Respiratory: No cough, No sputum, No wheezing, No shortness of breath, No dyspnea on exertion, No dyspnea at rest, No hemoptysis, No problem reported Cardiovascular: No chest pain, No orthopnea, No PND, No edema, No claudication , No palpitations, No problem reported Abdomen: No pain, No nausea, No vomiting, No diarrhea, No constipation, No GI bleeding, No problem reported Musculoskeletal: No joint pain, No muscle pain, No swelling, No calf pain, No problem reported Psychiatric: + substance abuse, + problem reported (as above) Sleep Information Total Hours of Sleep: 6.00 Meal Information Percent of Breakfast Consumed: 100 Percent of Lunch Consumed: 100 Percent of Dinner Consumed: 50 Mental Status Exam During interview pt is: alert and oriented, cooperative Appearance: appropriately dressed Eye contact is: fair Motor behavior is: steady gait & station, no abnormal motor movements Speech: other (delay in speech, monotoned ) Affect: flat Mood is: anxious Thought process: goal directed, linear, logical, blocking (once only as above ) Thought content: paranoid, thought insertion Suicidal thought are: denied Homicidal thoughts are: denied Hallucinations: auditory (not able to make out the words), denies visual Cognition: other (impaired concentration and attention and memory, struggles with any questions about time frame) Intelligence estimated to be: other (difficult to assess given level of psychotic symptoms) Insight: impaired (improving some though) Judgement: impaired (improving some though ) Impression 26 year old male with acute psychotic symptoms on medical leave for surgery for diverticulitis with colostomy (aiming for reversal in over a month) . Pt has increased cannabis usage to daily, sleep worsened, depressive symptoms with medial concerns and medical leave, and on ritalin (unknown compliance) and self taking Adderall recently. on Chantix to hep quit smoking with reduction only of smoking cigs. possible tensions in relationship with gf substance induced psychosis r/o ADHD r/o major depressive disorder stimulant use disorder alcohol use disorder nicotine use disorder Plan (1) Psychosis - elopement precautions - reality testing -aftercare arrangements for outpt treatment -[facility], individual and group therapy while on the unit - pt rescinded 72 hour notice after being seen by psychiatrist on unit, was scared and more comfortable now per pt -risperdal ODT form 0.5mg am and 1mg hs with risperdal odt 0.5mg prn up to tid prn psychosis/agitation after review of r/b/a -klonopin 0.5mg bid prn for anxiety/insomnia -NELA for gf and mother to be obtained for collateral, aim for family meetings as well -fasting lipids and glucose since rx'ing risperdal hold ritalin, reviewed how psychostimulants can precipitate and aggravate psychotic symptoms and encourage to not use psychostimulants for time being as well reviewed how cannabis can precipitate and aggravate psychotic symptoms and encourage to abstain reviewed alcohol intoxation//withdrawal can bring out psychotic symptoms to more fully assess substance usage concerns and consider substance treatment options as appropriate given above substance usage , as psychosis clears hold Chantix since could precipitate and aggravate psychotic symptoms , pt reports a number of past trials (unclear details due to psychotic symptoms) consider resuming chantix if was effective in past and only if tolerated it well previously , for now nicotine patches and gum with pt having used those in past (failed wellbutrin trial) 05/04/17 -likely substance induced psychotic symptoms given snorting of ritalin/ adderall and cannabis usage (with also degree of past alcohol usage) -will continue to hold chantix for now since unclear timing of psychotic symptoms and want to hold any meds that could possibly be adding to presentation (low risk but still a risk) - raise risperdal odt to 1mg am and hs with maintaining odt risperdal 0.5mg prn up to tid - maintain klonopin 0.5mg up to bid prn anxiety but review aim for this to be short lived medication while inpt only given controlled med and risk of dependence -building of therapeutic alliance further and addressing substance use concerns as above -referral for substance treatment options once more stabilized -processing of underlying emotional stressors more fully once more stabilized (2) Stimulant use disorder 05/04/17 addressing pts use of stimulants by snorting , pt open to stopping any stimulant rx and to use non controlled meds only to address concentration/ thought process pt aiming to abstain from substances and seek substance based treatment including possibly inpt treatment will address more fully as pt's psychotic symptoms more fully resolve (3) Diverticulitis of large intestine with perforation and abscess -allow belt for colostomy bag -monitor for symptoms (4) Migraine continue outpt meds for migraine treatment if occurs (5) Cigarette nicotine dependence, uncomplicated 05/03 hold Chantix since could precipitate and aggravate psychotic symptoms , pt reports a number of past trials (unclear details due to psychotic symptoms) consider resuming Chantix if was effective in past and only if tolerated it well previously , for now nicotine patches and gum with pt having used those in past (failed wellbutrin trial) nicotine patch 14mg 1 topically a day (pt prefers this dose and smoking is 1/4-1 /2 ppd but sometmes more lately) and 2mg nicotine gum prn hourly 05/04 - hold chantix for now, offered increase of nicotine patch to 21mg but pt preferred to maintain at 14mg but to start using nicotine gum for now Discharge / Aftercare Planning Primary Care Physician: Name: Dr. 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) Needs: outpt mental health treatment providers, abstaining from substances, Risk Factors Assessment Male: Yes : Yes Health problems: Yes Mental Health Diagnoses: Yes Substance use disorders: Yes Previous psychiatric stay: No Smoker: Yes Protective Factors Assessment Jehovah'S Witness beliefs: No : No Responsible for young children: No Employed: No Data Vital Signs Last 24 Hrs: Date Time Temp Pulse Resp B/P (MAP) Pulse Ox O2 Delivery O2 Flow Rate FiO2 05/04/17 06:51 36.9 99 16 145/96 101 151/109 Meds Administered Last 24 Hrs: Meds Administered (Past 24Hrs) Medications (Trade) Dose Ordered Sig/Allie Route Start Time Stop Time Status Last Admin Dose Admin Risperidone (Risperdal Tab) 0.5 mg NOW STAT PO 05/03/17 00:28 05/03/17 00:30 DC 05/03/17 00:41 0.5 MG Hydroxyzine HCl (Vistaril Tab) 50 mg HSZ PRN PO 05/03/17 01:15 06/02/17 01:14 05/04/17 01:44 50 MG Risperidone (Risperdal Tab) 0.5 mg Q6H PRN PO 05/03/17 01:30 05/03/17 13:50 DC 05/03/17 07:36 0.5 MG Risperidone (Risperdal M Tab) 1 mg HS PO 05/03/17 22:00 06/02/17 21:59 05/03/17 22:23 1 MG Risperidone (Risperdal M Tab) 0.5 mg TID PRN PO 05/03/17 11:45 06/02/17 11:44 05/04/17 17:13 0.5 MG Clonazepam (Klonopin Tab) 0.5 mg BID PRN PO 05/03/17 11:45 06/02/17 11:44 05/04/17 17:27 0.5 MG Nicotine (Nicoderm Cq 14MG Patch) 1 patch QAM TD 05/03/17 12:30 06/02/17 12:29 05/04/17 08:30 1 PATCH Nicotine Polacrilex (Nicorette 2MG Gum) 1 piece PRN PRN MT 05/03/17 11:45 06/02/17 11:44 05/04/17 11:58 1 PIECE Risperidone (Risperdal M Tab) 0.5 mg QAM PO 05/04/17 09:00 06/02/17 13:29 05/04/17 08:30 0.5 MG Lab Results Last 24 Hrs: Last 24 Hours Test 05/04/17 06:04 Fasting Glucose 99 mg/dl Triglycerides Level 201 mg/dl Cholesterol Level 195 mg/dl HDL Cholesterol 29 mg/dl LDL Cholesterol, Calculated 126 mg/dl VLDL Cholesterol, Calculated 40 mg/dl Cholesterol/HDL Ratio 6.7
[2017-05-04] MEDS: RISPERIDONE ODT 1MG PO SCH (21:03)
[2017-05-05 07:00] VITALS: BP_SYST 136; BP_SYST 144; BP_DIAS 102; BP_DIAS 91; PULSE 112; PULSE 116; TEMP 36.5
[2017-05-05] MEDS: NICOTINE 14 MG/24 HR TDSY TD SCH (08:18)
[2017-05-05] MEDS: RISPERIDONE ODT 0.5MG PO SCH (08:18)
[2017-05-05] MEDS ORDERED: RISPERIDONE ODT 0.5MG PO SCH (11:30)
--- NOTE | 2017-05-05 11:37 | Psychiatric Progress Notes ---
Progress Note Date of Service May 05, 2017. Interval History Norbert Keenan is a 26-year-old male admitted on May 03, 2017 at 00:50 who currently lives with his finance in [place], [place], and was admitted voluntarily after he presented with psychosis. Chief Complaint "Is this an intervention or something?" Subjective Patient was seen & assessed interval progress reviewed with Treatment Team. Staff report the patient has been paranoid and thought blocked, was checking the doors and wanting to leave, so was placed on elopement precautions. When staff processed this with him, he agreed to stay, but appeared confused. He appears suspicious and thought blocked at times, but has been able to attend some groups. He is taking his scheduled Risperdal, and also received when necessary's for thought blocking, paranoia, and racing thoughts. He also received hydroxyzine and clonazepam when necessary. He admitted to staff that he has been abusing multiple medications, snorting Ritalin and Adderall, and expressed an interest in substance abuse treatment. Today, he states that he is having difficulty with his thoughts, initially seemed confused about why he was here, "am I sick?" and required excessive explanation and reassurance. He said that he was worried he would be "going straight to senior living", as he admits to stealing prescription medications from the locker room at [facility]. He denies that he was actually arrested for this, and seems unclear about the status of his job working for [employer]. He says he "needs to go to rehabilitation," and thinks that his substance abuse triggered his psychotic symptoms. He continues to feel his thoughts are jumbled and that he is easily confused, paranoid, and tearful. He says he "convince myself that I'm a pedophile, I always felt weird around kids, didn't trust myself to hold babies or babysit.... At the time that made sense." He says "I had myself convinced I was a pedophile, was screaming, I was so angry at myself." He denies that he ever abused a child, denies any history of violence towards others, and denies any intent to harm anyone. He struggles to further explain his feeling "weird" around children, and denies being sexually attracted to children. He says his mood is "guilty, because I stole medications from [facility]." He denies current hallucinations, and although he reports previously having hallucinations , he cannot describe them further, and instead talks about feeling paranoid and unsure what was real. Sleep Information Total Hours of Sleep: 7.50 Meal Information Percent of Breakfast Consumed: 100 Percent of Lunch Consumed: 100 Percent of Dinner Consumed: 50 Mental Status Exam During interview pt is: alert and oriented, cooperative (but confused, a limited historian) Appearance: appropriately dressed, disheveled, other (overweight, fox, casual dress, glasses) Eye contact is: fair Motor behavior is: steady gait & station, no abnormal motor movements Speech: other (delayed at times) Affect: anxious, constricted (fearful) Mood is: other ("guilty") Thought process: goal directed, blocking, other (disorganized) Thought content: paranoid, delusions (that he is a pedophile) Suicidal thought are: denied Homicidal thoughts are: denied Hallucinations: auditory, other (reports hallucinations, but cannot further clarify or describe) Cognition: other (all spheres impaired by psychosis) Intelligence estimated to be: other (difficult to assess given level of psychotic symptoms) Insight: impaired Judgement: impaired Impression 26 year old male with acute psychotic symptoms on medical leave for surgery for diverticulitis with colostomy. He admits to substance abuse, including daily cannabis, snorting Ritalin and Adderall, and use of Benadryl, and says he is not sure he wasn't abusing other substances as well. Cognition impaired due to psychosis, with disrupted sleep, anxiety and depressive symptoms with medial concerns and medical leave. Was also on Chantix to help quit smoking. possible tensions in relationship with gf substance induced psychosis r/o ADHD r/o major depressive disorder stimulant use disorder alcohol use disorder nicotine use disorder Plan (1) Psychosis - elopement precautions - reality testing -aftercare arrangements for outpt treatment -[facility], individual and group therapy while on the unit - pt rescinded 72 hour notice after being seen by psychiatrist on unit, was scared and more comfortable now per pt -risperdal ODT form 0.5mg am and 1mg hs with risperdal odt 0.5mg prn up to tid prn psychosis/agitation after review of r/b/a -klonopin 0.5mg bid prn for anxiety/insomnia -NELA for gf and mother to be obtained for collateral, aim for family meetings as well -fasting lipids and glucose since rx'ing risperdal hold ritalin, reviewed how psychostimulants can precipitate and aggravate psychotic symptoms and encourage to not use psychostimulants for time being as well reviewed how cannabis can precipitate and aggravate psychotic symptoms and encourage to abstain reviewed alcohol intoxation//withdrawal can bring out psychotic symptoms to more fully assess substance usage concerns and consider substance treatment options as appropriate given above substance usage , as psychosis clears hold Chantix since could precipitate and aggravate psychotic symptoms , pt reports a number of past trials (unclear details due to psychotic symptoms) consider resuming chantix if was effective in past and only if tolerated it well previously , for now nicotine patches and gum with pt having used those in past (failed wellbutrin trial) 05/04/17 -likely substance induced psychotic symptoms given snorting of ritalin/ adderall and cannabis usage (with also degree of past alcohol usage) -will continue to hold chantix for now since unclear timing of psychotic symptoms and want to hold any meds that could possibly be adding to presentation (low risk but still a risk) - raise risperdal odt to 1mg am and hs with maintaining odt risperdal 0.5mg prn up to tid - maintain klonopin 0.5mg up to bid prn anxiety but review aim for this to be short lived medication while inpt only given controlled med and risk of dependence -building of therapeutic alliance further and addressing substance use concerns as above -referral for substance treatment options once more stabilized -processing of underlying emotional stressors more fully once more stabilized 1/2 - psychotic symptoms continue, but risperidone has been helpful; increase to 1 mg twice a day and increase when necessary dose to 1 mg every 4 hours when necessary psychosis. - Family meeting with anthony scheduled for tomorrow, will be helpful to get collateral information from her as he is a limited historian. 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 (2) Stimulant use disorder 05/04/17 addressing pts use of stimulants by snorting , pt open to stopping any stimulant rx and to use non controlled meds only to address concentration/ thought process pt aiming to abstain from substances and seek substance based treatment including possibly inpt treatment will address more fully as pt's psychotic symptoms more fully resolve 1/2 - continue to gather data about patient's substance abuse, as he has a limited historian due to his psychosis. Coordinate care with PCP, Dr. Wang, who was prescribing him stimulants. Today he states that he stole prescription medications from the locker room in [facility]. He will need substance abuse treatment after discharge from the hospital, and will continue to explore options for this. (3) Diverticulitis of large intestine with perforation and abscess -allow belt for colostomy bag -monitor for symptoms (4) Migraine continue outpt meds for migraine treatment if occurs (5) Cigarette nicotine dependence, uncomplicated 05/03 hold Chantix since could precipitate and aggravate psychotic symptoms , pt reports a number of past trials (unclear details due to psychotic symptoms) consider resuming Chantix if was effective in past and only if tolerated it well previously , for now nicotine patches and gum with pt having used those in past (failed wellbutrin trial) nicotine patch 14mg 1 topically a day (pt prefers this dose and smoking is 1/4-1 /2 ppd but sometmes more lately) and 2mg nicotine gum prn hourly 05/04 - hold chantix for now, offered increase of nicotine patch to 21mg but pt preferred to maintain at 14mg but to start using nicotine gum for now Discharge / Aftercare Planning Primary Care Physician: Name: Dr. 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 (although been on medical leave) Needs: outpt mental health treatment providers, abstaining from substances, Risk Factors Assessment Male: Yes : Yes Health problems: Yes Mental Health Diagnoses: Yes Substance use disorders: Yes Previous psychiatric stay: No Smoker: Yes Protective Factors Assessment Buddhism beliefs: No : No Responsible for young children: No Employed: No Data Vital Signs Last 24 Hrs: Date Time Temp Pulse Resp B/P (MAP) Pulse Ox O2 Delivery O2 Flow Rate FiO2 05/05/17 07:00 36.5 112 16 136/91 116 144/102 Meds Administered Last 24 Hrs: Meds Administered (Past 24Hrs) Medications (Trade) Dose Ordered Sig/Allie Route Start Time Stop Time Status Last Admin Dose Admin Risperidone (Risperdal M Tab) 1 mg HS PO 05/03/17 22:00 06/02/17 21:59 05/04/17 21:03 1 MG Risperidone (Risperdal M Tab) 0.5 mg TID PRN PO 05/03/17 11:45 06/02/17 11:44 05/04/17 17:13 0.5 MG Clonazepam (Klonopin Tab) 0.5 mg BID PRN PO 05/03/17 11:45 06/02/17 11:44 05/04/17 17:27 0.5 MG Nicotine (Nicoderm Cq 14MG Patch) 1 patch QAM TD 05/03/17 12:30 06/02/17 12:29 05/05/17 08:18 1 PATCH Miscellaneous (Remove Nicoderm Patch) 1 ea HS N/A 05/03/17 22:00 06/02/17 21:59 05/04/17 21:12 1 EA Nicotine Polacrilex (Nicorette 2MG Gum) 1 piece PRN PRN MT 05/03/17 11:45 06/02/17 11:44 05/04/17 11:58 1 PIECE Risperidone (Risperdal M Tab) 0.5 mg QAM PO 05/04/17 09:00 05/05/17 11:18 DC 05/05/17 08:18 0.5 MG
[2017-05-05] MEDS: RISPERIDONE ODT 1MG PO PRN (15:50)
[2017-05-05] MEDS: CLONAZEPAM 0.5 MG TAB PO PRN (19:30)
[2017-05-05] MEDS: RISPERIDONE ODT 1MG PO SCH (21:01)
[2017-05-06 06:49] VITALS: BP_SYST 137; BP_SYST 144; BP_DIAS 94; BP_DIAS 99; PULSE 103; PULSE 118; TEMP 36.6
[2017-05-06] MEDS: RISPERIDONE ODT 0.5MG PO SCH (07:51)
[2017-05-06] MEDS: NICOTINE 14 MG/24 HR TDSY TD SCH (07:52)
[2017-05-06] MEDS: CLONAZEPAM 0.5 MG TAB PO PRN ×2 (11:37→21:47)
[2017-05-06] MEDS: RISPERIDONE ODT 1MG PO PRN ×2 (11:37→16:01)
--- NOTE | 2017-05-06 12:54 | Psychiatric Progress Notes ---
Progress Note Date of Service May 06, 2017. Interval History Norbert Keenan is a 26-year-old male admitted on May 03, 2017 at 00:50 who currently lives with his finance in [place], [place], and was admitted voluntarily after he presented with psychosis. Chief Complaint "I'm OK.". Subjective Patient was seen & assessed interval progress reviewed with Treatment Team. The patient says that he revoked his 72 hour notice that he put in last night, agreeing that he could benefit from being here longer. He feels that the meds are helping him to feel calmer, and improve his mood, but beyond this is a very vague historian. He would like to take a polygraph test to "prove to myself that I'm not a pedophile", which he believes he is based on some things that "went on when I was a kid", but will not elaborate. He had vague, noncommital answers to aud/vis hallucinations, ideas of reference, thought broadcasting, thought insertion or symptoms of OCD. He would initially answer yes, but would then be unable to provide examples or additional supporting information. The only affect he shows is when talking about his colostomy and the possibility of having it reversed in the next few months. Nursing reports that he was talking last night about his concerns about being a pedophile and wanting to be discharged last night, not understanding why he needed to stay. He says that his fiance changed his ostomy appliance yesterday, that he can do it, but is generally uncomfortable with anything "gross".. He reports good appetite and sleep, and denies side effects to meds. Review of Systems Constitutional: No fever, No chills, No sweats, No weight loss, No weakness, No fatigue, No problem reported ENT: No hearing loss, No unusual epistaxis, No nasal symptoms, No sore throat, No tinnitus, No dental problems, No trouble swallowing, No problem reported Respiratory: No cough, No sputum, No wheezing, No shortness of breath, No dyspnea on exertion, No dyspnea at rest, No hemoptysis, No problem reported Cardiovascular: No chest pain, No orthopnea, No PND, No edema, No claudication , No palpitations, No problem reported Abdomen: + problem reported (colostomy) Musculoskeletal: No joint pain, No muscle pain, No swelling, No calf pain, No problem reported Neurologic: No memory loss, No paralysis, No weakness, No numbness/tingling, No vertigo, No balance problems, No problem reported Psychiatric: + problem reported (vague, disconnected thinking, worries he's a pedophile) Integumentary: No rash, No itch, No new/changing skin lesions, No color change , No bleeding, No problem reported Sleep Information Total Hours of Sleep: 6.00 Meal Information Percent of Breakfast Consumed: 100 Percent of Lunch Consumed: 100 Percent of Dinner Consumed: 100 Mental Status Exam During interview pt is: alert and oriented, cooperative (but confused, a limited historian) Appearance: appropriately dressed, other (overweight, fox, casual dress, glasses) Eye contact is: good Motor behavior is: steady gait & station, no abnormal motor movements Speech: normal in rate, rhythm & volume Affect: constricted (fearful) Mood is: other ("fine") Thought process: goal directed, other (disorganized) Thought content: paranoid, delusions (that he is a pedophile) Suicidal thought are: denied Homicidal thoughts are: denied Hallucinations: denies auditory, denies visual Cognition: language grossly intact Intelligence estimated to be: average Insight: impaired Judgement: impaired Impression The patient has submitted and revoked 2 72 hour notices. His thinking remains disconnected, vague and delusional. He is tolerating meds without side effect, risperdal increased today to 1 mg. BID. had a meeting with his girlfriend this AM, but no reports about the results yet. We have no evidence that his thoughts are real, and they do no seem to be in the realm of OCD. We will continue current meds, and consider increasing Risperdal further tomorrow. Plan (1) Psychosis - elopement precautions - reality testing -aftercare arrangements for outpt treatment -[facility], individual and group therapy while on the unit - pt rescinded 72 hour notice after being seen by psychiatrist on unit, was scared and more comfortable now per pt -risperdal ODT form 0.5mg am and 1mg hs with risperdal odt 0.5mg prn up to tid prn psychosis/agitation after review of r/b/a -klonopin 0.5mg bid prn for anxiety/insomnia -NELA for gf and mother to be obtained for collateral, aim for family meetings as well -fasting lipids and glucose since rx'ing risperdal hold ritalin, reviewed how psychostimulants can precipitate and aggravate psychotic symptoms and encourage to not use psychostimulants for time being as well reviewed how cannabis can precipitate and aggravate psychotic symptoms and encourage to abstain reviewed alcohol intoxation//withdrawal can bring out psychotic symptoms to more fully assess substance usage concerns and consider substance treatment options as appropriate given above substance usage , as psychosis clears hold Chantix since could precipitate and aggravate psychotic symptoms , pt reports a number of past trials (unclear details due to psychotic symptoms) consider resuming chantix if was effective in past and only if tolerated it well previously , for now nicotine patches and gum with pt having used those in past (failed wellbutrin trial) 05/04/17 -likely substance induced psychotic symptoms given snorting of ritalin/ adderall and cannabis usage (with also degree of past alcohol usage) -will continue to hold chantix for now since unclear timing of psychotic symptoms and want to hold any meds that could possibly be adding to presentation (low risk but still a risk) - raise risperdal odt to 1mg am and hs with maintaining odt risperdal 0.5mg prn up to tid - maintain klonopin 0.5mg up to bid prn anxiety but review aim for this to be short lived medication while inpt only given controlled med and risk of dependence -building of therapeutic alliance further and addressing substance use concerns as above -referral for substance treatment options once more stabilized -processing of underlying emotional stressors more fully once more stabilized 1/2 - psychotic symptoms continue, but risperidone has been helpful; increase to 1 mg twice a day and increase when necessary dose to 1 mg every 4 hours when necessary psychosis. - Family meeting with anthony scheduled for tomorrow, will be helpful to get collateral information from her as he is a limited historian. 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 05/06/17 - Continue current meds - Meeting with GF this AM - Reality orientation (2) Stimulant use disorder 05/04/17 addressing pts use of stimulants by snorting , pt open to stopping any stimulant rx and to use non controlled meds only to address concentration/ thought process pt aiming to abstain from substances and seek substance based treatment including possibly inpt treatment will address more fully as pt's psychotic symptoms more fully resolve 1/2 - continue to gather data about patient's substance abuse, as he has a limited historian due to his psychosis. Coordinate care with PCP, Dr. Wang, who was prescribing him stimulants. Today he states that he stole prescription medications from the locker room in [facility]. He will need substance abuse treatment after discharge from the hospital, and will continue to explore options for this. (3) Diverticulitis of large intestine with perforation and abscess -allow belt for colostomy bag -monitor for symptoms (4) Migraine continue outpt meds for migraine treatment if occurs (5) Cigarette nicotine dependence, uncomplicated 05/03 hold Chantix since could precipitate and aggravate psychotic symptoms , pt reports a number of past trials (unclear details due to psychotic symptoms) consider resuming Chantix if was effective in past and only if tolerated it well previously , for now nicotine patches and gum with pt having used those in past (failed wellbutrin trial) nicotine patch 14mg 1 topically a day (pt prefers this dose and smoking is 1/4-1 /2 ppd but sometmes more lately) and 2mg nicotine gum prn hourly 05/04 - hold chantix for now, offered increase of nicotine patch to 21mg but pt preferred to maintain at 14mg but to start using nicotine gum for now Discharge / Aftercare Planning Primary Care Physician: Name: Dr. 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 (although been on medical leave) Needs: outpt mental health treatment providers, abstaining from substances, Risk Factors Assessment Male: Yes : Yes Health problems: Yes Mental Health Diagnoses: Yes Substance use disorders: Yes Previous psychiatric stay: No Smoker: Yes Protective Factors Assessment Jainism beliefs: No : No Responsible for young children: No Employed: No Data Vital Signs Last 24 Hrs: Date Time Temp Pulse Resp B/P (MAP) Pulse Ox O2 Delivery O2 Flow Rate FiO2 05/06/17 06:49 36.6 103 16 144/94 118 137/99 Meds Administered Last 24 Hrs: Meds Administered (Past 24Hrs) Medications (Trade) Dose Ordered Sig/Allie Route Start Time Stop Time Status Last Admin Dose Admin Risperidone (Risperdal M Tab) 1 mg QAM PO 05/06/17 09:00 06/02/17 13:29 05/06/17 07:51 1 MG Risperidone (Risperdal M Tab) 0.5 mg 1130 PO 05/05/17 11:30 05/05/17 11:51 DC 05/05/17 12:09 0.5 MG Risperidone (Risperdal M Tab) 1 mg TID PRN PO 05/05/17 11:45 06/02/17 11:44 05/06/17 11:37 1 MG Lab Results Last 24 Hrs: 05/02/17 22:13 Red Blood Count 5.36, Mean Corpuscular Volume 88.4, Mean Corpuscular Hemoglobin 30.4, Mean Corpuscular Hemoglobin Concent 34.4, Mean Platelet Volume 9.1, Neutrophils (%) (Auto) 71.2, Lymphocytes (%) (Auto) 21.4, Monocytes (%) (Auto) 5.6, Eosinophils (%) (Auto) 1.2, Basophils (%) (Auto) 0.4, Neutrophils # (Auto) 9.16, Lymphocytes # (Auto) 2.75, Monocytes # (Auto) 0.72, Eosinophils # (Auto) 0.16, Basophils # (Auto) 0.05 05/02/17 22:13 Test 05/02/17 21:50 05/02/17 22:13 05/02/17 23:21 05/04/17 06:04 Urine Opiates Screen NEG (NEG) Urine Methadone, Qualitative NEG (NEG) Urine Barbiturates NEG (NEG) Urine Phencyclidine (PCP) Level NEG (NEG) Ur Amphetamine/Methamphetamine NEG (NEG) MDMA (Ecstasy) Screen NEG (NEG) Urine Benzodiazepines Screen NEG (NEG) Urine Cocaine Metabolite NEG (NEG) Urine Marijuana (THC) POS (NEG) White Blood Count 12.87 K/uL (4.8-10.8) Red Blood Count 5.36 M/uL (4.7-6.1) Hemoglobin 16.3 g/dL (14.0-18.0) Hematocrit 47.4 % (42-52) Mean Corpuscular Volume 88.4 fL (80-100) Mean Corpuscular Hemoglobin 30.4 pg (25-34) Mean Corpuscular Hemoglobin Concent 34.4 g/dl (32-36) Platelet Count 349 K/uL (130-400) Mean Platelet Volume 9.1 fL (7.4-10.4) Neutrophils (%) (Auto) 71.2 % Lymphocytes (%) (Auto) 21.4 % Monocytes (%) (Auto) 5.6 % Eosinophils (%) (Auto) 1.2 % Basophils (%) (Auto) 0.4 % Neutrophils # (Auto) 9.16 K/uL (1.4-6.5) Lymphocytes # (Auto) 2.75 K/uL (1.2-3.4) Monocytes # (Auto) 0.72 K/uL (0.11-0.59) Eosinophils # (Auto) 0.16 K/uL (0-0.5) Basophils # (Auto) 0.05 K/uL (0-0.2) RDW Standard Deviation 45.1 fL (36.4-46.3) RDW Coefficient of Variation 13.9 % (11.5-14.5) Immature Granulocyte % (Auto) 0.2 % Immature Granulocyte # (Auto) 0.03 K/uL (0.00-0.02) Anion Gap 9.0 mmol/L (3-11) Est Creatinine Clear Calc Drug Dose 117.9 ml/min Estimated GFR () 106.5 Estimated GFR (Non- 91.9 BUN/Creatinine Ratio 12.0 (10-20) Calcium Level 8.5 mg/dl (8.5-10.1) Total Bilirubin 0.4 mg/dl (0.2-1) Direct Bilirubin < 0.1 mg/dl (0-0.2) Aspartate Amino Transf (AST/SGOT) 21 U/L (15-37) Alanine Aminotransferase (ALT/SGPT) 37 U/L (12-78) Alkaline Phosphatase 82 U/L (45-117) Total Protein 8.7 gm/dl (6.4-8.2) Albumin 4.3 gm/dl (3.4-5.0) Globulin 4.4 gm/dl (2.5-4.0) Albumin/Globulin Ratio 1.0 (0.9-2) Thyroid Stimulating Hormone (TSH) 1.180 uIu/ml (0.300-4.500) Ethyl Alcohol mg/dL < 3.0 mg/dl (0-3) Urine Color YELLOW Urine Appearance CLEAR (CLEAR) Urine pH 6.0 (4.5-7.5) Urine Specific Dewy Rose 1.013 (1.000-1.030) Urine Protein NEG (NEG) Urine Glucose (UA) NEG (NEG) Urine Ketones TRACE (NEG) Urine Occult Blood NEG (NEG) Urine Nitrite NEG (NEG) Urine Bilirubin NEG (NEG) Urine Urobilinogen NEG (NEG) Urine Leukocyte Esterase NEG (NEG) Fasting Glucose 99 mg/dl (70-99) Triglycerides Level 201 mg/dl (0-150) Cholesterol Level 195 mg/dl (0-200) HDL Cholesterol 29 mg/dl LDL Cholesterol, Calculated 126 mg/dl VLDL Cholesterol, Calculated 40 mg/dl Cholesterol/HDL Ratio 6.7
[2017-05-06] MEDS: RISPERIDONE ODT 1MG PO SCH (20:47)
[2017-05-07 06:46] VITALS: BP_SYST 129; BP_SYST 133; BP_DIAS 81; BP_DIAS 84; PULSE 105; PULSE 97; TEMP 36.8
[2017-05-07] MEDS: RISPERIDONE ODT 0.5MG PO SCH (09:00)
[2017-05-07] MEDS: NICOTINE 14 MG/24 HR TDSY TD SCH (09:56)
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
[2017-05-07 11:05] VITALS: BP_SYST 138; BP_SYST 163; BP_DIAS 101; BP_DIAS 94; BP_DIAS 95; PULSE 100; PULSE 102; TEMP 36.4
[2017-05-07] MEDS: CLONAZEPAM 0.5 MG TAB PO PRN ×2 (11:59→21:39)
[2017-05-07] MEDS: RISPERIDONE 1 MG TAB PO PRN (16:00)
[2017-05-07] MEDS: RISPERIDONE 2 MG TAB PO SCH (21:38)
[2017-05-08 06:43] VITALS: BP_SYST 124; BP_SYST 128; BP_DIAS 83; BP_DIAS 90; PULSE 100; PULSE 92; TEMP 36.8
[2017-05-08] MEDS: NICOTINE 14 MG/24 HR TDSY TD SCH (08:15)
[2017-05-08] MEDS: RISPERIDONE 2 MG TAB PO SCH (08:15)
[2017-05-08] MEDS: CLONAZEPAM 0.5 MG TAB PO PRN (09:32)
[2017-05-08] MEDS ORDERED: BENZTROPINE MESYLATE 1 MG TAB PO ONE (11:15)
--- NOTE | 2017-05-08 12:30 | Psychiatric Progress Notes ---
Progress Note Date of Service May 08, 2017. Interval History Norbert Keenan is a 26-year-old male admitted on May 03, 2017 at 00:50 who currently lives with his finance in [place], [place], and was admitted voluntarily after he presented with psychosis. Chief Complaint "OK". Subjective Patient was seen & assessed interval progress reviewed with Treatment Team. Nursing reports that he had a difficult day with his ostomy, needing it to be reapplied twice. He also had 2 near syncopal events, which may have been psychogenic as BP WNL, and no episodes today. He has trouble today describing his mood saying "Its kind of funny" but cannot elaborate further. he denies any further thoughts that he is a pedophile or needing to take a polygraph, and continues to deny aud/vis hallucinations. He is experiencing muscle stiffness, lack of arm swing that is bothersome to him, but no cogwheeling. He is anxious but cannot further explain other than to say he wonders when he will be able to go home. His fiance has been visiting regularly, and he thinks it is going well. They have another meeting scheduled for this afternoon. Nursing reports that he took 1 prn of Risperdal yesterday afternoon. Review of Systems Constitutional: + fatigue ENT: No hearing loss, No unusual epistaxis, No nasal symptoms, No sore throat, No tinnitus, No dental problems, No trouble swallowing, No problem reported Respiratory: No cough, No sputum, No wheezing, No shortness of breath, No dyspnea on exertion, No dyspnea at rest, No hemoptysis, No problem reported Cardiovascular: No chest pain, No orthopnea, No PND, No edema, No claudication , No palpitations, No problem reported Abdomen: No pain, No nausea, No vomiting, No diarrhea, No constipation, No GI bleeding, No problem reported Musculoskeletal: + problem reported (stiffness, bradykinetic) Neurologic: No memory loss, No paralysis, No weakness, No numbness/tingling, No vertigo, No balance problems, No problem reported Psychiatric: + problem reported (poorly able to express his thoughts) Integumentary: + problem reported (ostomy) Sleep Information Total Hours of Sleep: 7.50 Meal Information Percent of Breakfast Consumed: 50 Percent of Lunch Consumed: 75 Percent of Dinner Consumed: 100 Mental Status Exam During interview pt is: alert and oriented, cooperative (but confused, a limited historian) Appearance: appropriately dressed, other (overweight, fox, casual dress, glasses) Eye contact is: good Motor behavior is: steady gait & station, no abnormal motor movements Speech: normal in rate, rhythm & volume Affect: depressed, anxious Mood is: other ("better") Thought process: goal directed, other (disorganized) Thought content: paranoid, delusions (that he is a pedophile - improving) Suicidal thought are: denied Homicidal thoughts are: denied Hallucinations: denies auditory, denies visual Cognition: language grossly intact Intelligence estimated to be: average Insight: impaired Judgement: impaired Impression The patient is making slow progress, no longer believing that he is a pedophile , but remains distant, disorganized and unable to clearly relate his thoughts and feelings. Single Cogentin 2 mg. dose was helpful for parkinsonian side effects so will start standing 1 mg. BID. Will also redistribute risperdal to 1 mg. AM and 3 mg HS to reduce any daytime sedation. Plan (1) Psychosis - elopement precautions - reality testing -aftercare arrangements for outpt treatment -[facility], individual and group therapy while on the unit - pt rescinded 72 hour notice after being seen by psychiatrist on unit, was scared and more comfortable now per pt -risperdal ODT form 0.5mg am and 1mg hs with risperdal odt 0.5mg prn up to tid prn psychosis/agitation after review of r/b/a -klonopin 0.5mg bid prn for anxiety/insomnia -NEL[facility] for gf and mother to be obtained for collateral, aim for family meetings as well -fasting lipids and glucose since rx'ing risperdal hold ritalin, reviewed how psychostimulants can precipitate and aggravate psychotic symptoms and encourage to not use psychostimulants for time being as well reviewed how cannabis can precipitate and aggravate psychotic symptoms and encourage to abstain reviewed alcohol intoxation//withdrawal can bring out psychotic symptoms to more fully assess substance usage concerns and consider substance treatment options as appropriate given above substance usage , as psychosis clears hold Chantix since could precipitate and aggravate psychotic symptoms , pt reports a number of past trials (unclear details due to psychotic symptoms) consider resuming chantix if was effective in past and only if tolerated it well previously , for now nicotine patches and gum with pt having used those in past (failed wellbutrin trial) 05/04/17 - likely substance induced psychotic symptoms given snorting of ritalin/ adderall and cannabis usage (with also degree of past alcohol usage) - will continue to hold chantix for now since unclear timing of psychotic symptoms and want to hold any meds that could possibly be adding to presentation (low risk but still a risk) - raise risperdal odt to 1mg am and hs with maintaining odt risperdal 0.5mg prn up to tid - maintain klonopin 0.5mg up to bid prn anxiety but review aim for this to be short lived medication while inpt only given controlled med and risk of dependence - building of therapeutic alliance further and addressing substance use concerns as above - referral for substance treatment options once more stabilized - processing of underlying emotional stressors more fully once more stabilized 1/2 - psychotic symptoms continue, but risperidone has been helpful; increase to 1 mg twice a day and increase when necessary dose to 1 mg every 4 hours when necessary psychosis. - Family meeting with anthony scheduled for tomorrow, will be helpful to get collateral information from her as he is a limited historian. 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 05/06/17 - Continue current meds - Meeting with GF this AM - Reality orientation 05/07 - Increase risperidone to 2mg bid, and continue 1mg prn dose. - As psychosis improves, patient will need to work on safety plan. - Referring for OP care to [facility]. 05/08 - Change Risperdal to 1 mg. AM and 3 mg. HS - Add Cogentin 1 mg. BID for parkinsonian side effects. (2) Stimulant use disorder 05/04/17 addressing pts use of stimulants by snorting, pt open to stopping any stimulant rx and to use non controlled meds only to address concentration/ thought process pt aiming to abstain from substances and seek substance based treatment including possibly inpt treatment will address more fully as pt's psychotic symptoms more fully resolve 05/05 - continue to gather data about patient's substance abuse, as he has a limited historian due to his psychosis. Coordinate care with PCP, Dr. Wang, who was prescribing him stimulants. Today he states that he stole prescription medications from the locker room in [facility]. He will need substance abuse treatment after discharge from the hospital, and will continue to explore options for this. 05/07 - Care coordinated with Dr. Wang's office re: patient's substance abuse and discontinuation of stimulants. - Referred to [facility] for substance abuse counseling. (3) Diverticulitis of large intestine with perforation and abscess -allow belt for colostomy bag -monitor for symptoms (4) Migraine continue outpt meds for migraine treatment if occurs (5) Cigarette nicotine dependence, uncomplicated 05/03 hold Chantix since could precipitate and aggravate psychotic symptoms , pt reports a number of past trials (unclear details due to psychotic symptoms) consider resuming Chantix if was effective in past and only if tolerated it well previously , for now nicotine patches and gum with pt having used those in past (failed wellbutrin trial) nicotine patch 14mg 1 topically a day (pt prefers this dose and smoking is 1/4-1 /2 ppd but sometimes more lately) and 2mg nicotine gum prn hourly 05/04 - hold Chantix for now, offered increase of nicotine patch to 21mg but pt preferred to maintain at 14mg but to start using nicotine gum for now 05/07 - Patient would like to quit smoking, and would like a nicotine patch at discharge. Will need f/u with PCP Dr. Wang for smoking cessation. He is also interested int he [place] [facility], which can be arranged at discharge. Discharge / Aftercare Planning Primary Care Physician: Name: Dr. Wang Appointment Notes: As needed Psychiatrist: Name: Monty Frey - ( bring insurance card and photo ID ) Date of Appointment: May 29, 2017 Time of Appointment: 12:45 pm Appointment Notes: [address] [place] [address] Therapist: Name: [facility] Date of Appointment: May 19, 2017 Time of Appointment: 9:30 am Appointment Notes: 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 (although been on medical leave) Needs: outpt mental health treatment providers, abstaining from substances, Risk Factors Assessment Male: Yes : Yes Health problems: Yes Mental Health Diagnoses: Yes Substance use disorders: Yes Previous psychiatric stay: No Smoker: Yes Protective Factors Assessment Yarsanism beliefs: No : No Responsible for young children: No Employed: No Data Vital Signs Last 24 Hrs: Date Time Temp Pulse Resp B/P (MAP) Pulse Ox O2 Delivery O2 Flow Rate FiO2 05/08/17 06:43 36.8 92 18 124/83 100 128/90 Meds Administered Last 24 Hrs: Meds Administered (Past 24Hrs) Medications (Trade) Dose Ordered Sig/Allie Route Start Time Stop Time Status Last Admin Dose Admin Risperidone (Risperdal Tab) 1 mg Q4 PRN PO 05/07/17 10:30 06/06/17 10:29 05/07/17 16:00 1 MG Risperidone (Risperdal Tab) 2 mg BID PO 05/07/17 22:00 06/06/17 21:59 05/08/17 08:15 2 MG Benztropine Mesylate (Cogentin Tab) 2 mg ONE ONCE PO 05/08/17 11:15 05/08/17 11:16 DC 05/08/17 11:13 2 MG Lab Results Last 24 Hrs: 05/02/17 22:13 Red Blood Count 5.36, Mean Corpuscular Volume 88.4, Mean Corpuscular Hemoglobin 30.4, Mean Corpuscular Hemoglobin Concent 34.4, Mean Platelet Volume 9.1, Neutrophils (%) (Auto) 71.2, Lymphocytes (%) (Auto) 21.4, Monocytes (%) (Auto) 5.6, Eosinophils (%) (Auto) 1.2, Basophils (%) (Auto) 0.4, Neutrophils # (Auto) 9.16, Lymphocytes # (Auto) 2.75, Monocytes # (Auto) 0.72, Eosinophils # (Auto) 0.16, Basophils # (Auto) 0.05 05/02/17 22:13 Test 05/02/17 21:50 05/02/17 22:13 05/02/17 23:21 05/04/17 06:04 Urine Opiates Screen NEG (NEG) Urine Methadone, Qualitative NEG (NEG) Urine Barbiturates NEG (NEG) Urine Phencyclidine (PCP) Level NEG (NEG) Ur Amphetamine/Methamphetamine NEG (NEG) MDMA (Ecstasy) Screen NEG (NEG) Urine Benzodiazepines Screen NEG (NEG) Urine Cocaine Metabolite NEG (NEG) Urine Marijuana (THC) POS (NEG) Urine Marijuana (THC Carboxy Acid) 137 NG/ML (CUTOFF=5) White Blood Count 12.87 K/uL (4.8-10.8) Red Blood Count 5.36 M/uL (4.7-6.1) Hemoglobin 16.3 g/dL (14.0-18.0) Hematocrit 47.4 % (42-52) Mean Corpuscular Volume 88.4 fL (80-100) Mean Corpuscular Hemoglobin 30.4 pg (25-34) Mean Corpuscular Hemoglobin Concent 34.4 g/dl (32-36) Platelet Count 349 K/uL (130-400) Mean Platelet Volume 9.1 fL (7.4-10.4) Neutrophils (%) (Auto) 71.2 % Lymphocytes (%) (Auto) 21.4 % Monocytes (%) (Auto) 5.6 % Eosinophils (%) (Auto) 1.2 % Basophils (%) (Auto) 0.4 % Neutrophils # (Auto) 9.16 K/uL (1.4-6.5) Lymphocytes # (Auto) 2.75 K/uL (1.2-3.4) Monocytes # (Auto) 0.72 K/uL (0.11-0.59) Eosinophils # (Auto) 0.16 K/uL (0-0.5) Basophils # (Auto) 0.05 K/uL (0-0.2) RDW Standard Deviation 45.1 fL (36.4-46.3) RDW Coefficient of Variation 13.9 % (11.5-14.5) Immature Granulocyte % (Auto) 0.2 % Immature Granulocyte # (Auto) 0.03 K/uL (0.00-0.02) Anion Gap 9.0 mmol/L (3-11) Est Creatinine Clear Calc Drug Dose 117.9 ml/min Estimated GFR () 106.5 Estimated GFR (Non- 91.9 BUN/Creatinine Ratio 12.0 (10-20) Calcium Level 8.5 mg/dl (8.5-10.1) Total Bilirubin 0.4 mg/dl (0.2-1) Direct Bilirubin < 0.1 mg/dl (0-0.2) Aspartate Amino Transf (AST/SGOT) 21 U/L (15-37) Alanine Aminotransferase (ALT/SGPT) 37 U/L (12-78) Alkaline Phosphatase 82 U/L (45-117) Total Protein 8.7 gm/dl (6.4-8.2) Albumin 4.3 gm/dl (3.4-5.0) Globulin 4.4 gm/dl (2.5-4.0) Albumin/Globulin Ratio 1.0 (0.9-2) Thyroid Stimulating Hormone (TSH) 1.180 uIu/ml (0.300-4.500) Ethyl Alcohol mg/dL < 3.0 mg/dl (0-3) Urine Color YELLOW Urine Appearance CLEAR (CLEAR) Urine pH 6.0 (4.5-7.5) Urine Specific [place] 1.013 (1.000-1.030) Urine Protein NEG (NEG) Urine Glucose (UA) NEG (NEG) Urine Ketones TRACE (NEG) Urine Occult Blood NEG (NEG) Urine Nitrite NEG (NEG) Urine Bilirubin NEG (NEG) Urine Urobilinogen NEG (NEG) Urine Leukocyte Esterase NEG (NEG) Fasting Glucose 99 mg/dl (70-99) Triglycerides Level 201 mg/dl (0-150) Cholesterol Level 195 mg/dl (0-200) HDL Cholesterol 29 mg/dl LDL Cholesterol, Calculated 126 mg/dl VLDL Cholesterol, Calculated 40 mg/dl Cholesterol/HDL Ratio 6.7 Test 05/07/17 10:41 Bedside Glucose 153 mg/dl (70-99)
[2017-05-08] MEDS: NICOTINE POLACRILEX 2 MG GUM MT PRN ×2 (13:18→19:14)
[2017-05-08] MEDS: RISPERIDONE 1 MG TAB PO PRN (18:42)
[2017-05-08] MEDS: BENZTROPINE MESYLATE 1 MG TAB PO SCH (21:48)
[2017-05-08] MEDS ORDERED: RISPERIDONE 2 MG TAB PO ONE (22:00)
[2017-05-09 06:37] VITALS: BP_SYST 115; BP_SYST 136; BP_DIAS 73; BP_DIAS 89; PULSE 85; PULSE 97; TEMP 36.4
[2017-05-09] MEDS: BENZTROPINE MESYLATE 1 MG TAB PO SCH ×2 (07:59→22:09)
[2017-05-09] MEDS: RISPERIDONE 1 MG TAB PO SCH (07:59)
[2017-05-09] MEDS: NICOTINE 14 MG/24 HR TDSY TD SCH (08:01)
[2017-05-09] MEDS: NICOTINE POLACRILEX 2 MG GUM MT PRN ×2 (09:09→18:23)
[2017-05-09] MEDS: RISPERIDONE 1 MG TAB PO PRN (12:05)
--- NOTE | 2017-05-09 12:44 | Psychiatric Progress Notes ---
Progress Note Date of Service May 09, 2017. (Liliana Mina, MIKE) Interval History Norbert Keenan is a 26-year-old male admitted on May 03, 2017 at 00:50 who currently lives with his finance in [place], [place], and was admitted voluntarily after he presented with psychosis. (Liliana Mina, MIKE) Chief Complaint "I've always tried to sweep my problems under the rug". (Liliana Mina, MIKE) Subjective Patient was seen & assessed interval progress reviewed with Nursing. - issues with colostomy reported, pt reported increased dizziness likely due to this - Hx of substance abuse, primarily stimulants Pt was seen today along with weekend rounding psychiatrist, Dr. Martino. Pt states he feels he is doing well and has been able to gain some insight into his presenting symptoms. Pt states he had altered thinking prior to admission that he feels was due to his substance use. He reports "now that I'm getting back to normal, I know that's not the case". Pt is planning to attend rehab after discharge and is currently set-up to attend [facility] at [place]. Pt was encouraged to consider an inpatient rehabilitation facility to increase likelihood of early success. Pt is optimistic about his future and is able to process how substance abuse has negatively affected his life thus far. He states "I am feeling much stronger now". Pt reports previous abuse of his personal prescription stimulants, alcohol, and marijuana. He denies ongoing muscle tightness and states Cogentin was helpful yesterday. Pt denies hallucinations and says he is feeling a bit down as he misses his family and is ready to go home. Denies SI/HI, A/V hallucinations. (Liliana Mina, LOTTIE-C) Review of Systems Psych: denies symptoms other than stated above Constitutional: denied Cardiovascular: denied GI: denied Neurologic: denied Remainder of 10 body systems also reviewed and denied other than noted above. (Liliana Mina, MIKE) Sleep Information Total Hours of Sleep: 7.25 (Liliana Mina, ORAC) Meal Information Percent of Breakfast Consumed: 100 Percent of Lunch Consumed: 100 Percent of Dinner Consumed: 50 (Liliana Mina, LOTTIE-C) Mental Status Exam During interview pt is: alert and oriented, cooperative Appearance: appropriately dressed, appropriately groomed Eye contact is: good Motor behavior is: steady gait & station (mildly rigid in appearance), no abnormal motor movements (no dystonia apparent on physical examination) Speech: normal in rate, rhythm & volume Affect: depressed, anxious Mood is: depressed, other ("a bit down") Thought process: goal directed, clear, coherent, other (disorganized) Thought content: paranoid (clearing), delusions (previous thoughts of being pedophile, now admits not true) Suicidal thought are: denied Homicidal thoughts are: denied Hallucinations: denies auditory, denies visual Cognition: language grossly intact Intelligence estimated to be: average Insight: impaired Judgement: impaired (Liliana Mina, ORAC) Impression Pt continues to be interactive with other patients on the unit. He is improving and reports he feels stronger. Pt appears less disorganized and is able to better process affect previous substance abuse has had on his life. Pt reports single dose of Cogentin was beneficial. Denies any current complaints or side effects to medication. He states he is planning to attend rehab after discharge and was encouraged to consider inpatient rehab to increase his chance of early success with abstinence. (Liliana Mina, ORAC) Plan (1) Psychosis - elopement precautions - reality testing -aftercare arrangements for outpt treatment -[facility], individual and group therapy while on the unit - pt rescinded 72 hour notice after being seen by psychiatrist on unit, was scared and more comfortable now per pt -risperdal ODT form 0.5mg am and 1mg hs with risperdal odt 0.5mg prn up to tid prn psychosis/agitation after review of r/b/a -klonopin 0.5mg bid prn for anxiety/insomnia -NELA for gf and mother to be obtained for collateral, aim for family meetings as well -fasting lipids and glucose since rx'ing risperdal hold ritalin, reviewed how psychostimulants can precipitate and aggravate psychotic symptoms and encourage to not use psychostimulants for time being as well reviewed how cannabis can precipitate and aggravate psychotic symptoms and encourage to abstain reviewed alcohol intoxation//withdrawal can bring out psychotic symptoms to more fully assess substance usage concerns and consider substance treatment options as appropriate given above substance usage , as psychosis clears hold Chantix since could precipitate and aggravate psychotic symptoms , pt reports a number of past trials (unclear details due to psychotic symptoms) consider resuming chantix if was effective in past and only if tolerated it well previously , for now nicotine patches and gum with pt having used those in past (failed wellbutrin trial) 05/04/17 - likely substance induced psychotic symptoms given snorting of ritalin/ adderall and cannabis usage (with also degree of past alcohol usage) - will continue to hold chantix for now since unclear timing of psychotic symptoms and want to hold any meds that could possibly be adding to presentation (low risk but still a risk) - raise risperdal odt to 1mg am and hs with maintaining odt risperdal 0.5mg prn up to tid - maintain klonopin 0.5mg up to bid prn anxiety but review aim for this to be short lived medication while inpt only given controlled med and risk of dependence - building of therapeutic alliance further and addressing substance use concerns as above - referral for substance treatment options once more stabilized - processing of underlying emotional stressors more fully once more stabilized /2 - psychotic symptoms continue, but risperidone has been helpful; increase to 1 mg twice a day and increase when necessary dose to 1 mg every 4 hours when necessary psychosis. - Family meeting with anthony scheduled for tomorrow, will be helpful to get collateral information from her as he is a limited historian. 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 05/06/17 - Continue current meds - Meeting with GF this AM - Reality orientation 05/07 - Increase risperidone to 2mg bid, and continue 1mg prn dose. - As psychosis improves, patient will need to work on safety plan. - Referring for OP care to [place]. 05/08 - Change Risperdal to 1 mg. AM and 3 mg. HS - Add Cogentin 1 mg. BID for parkinsonian side effects. 05/09 - Continue medication regimen as above. - Pt tolerating Risperdal with addition of Cogentin 1mg BID. Denies ongoing parkinsonian side effects. - Plans to continue to contemplate inpatient vs. IOP rehab after discharge. (2) Stimulant use disorder 05/04/17 addressing pts use of stimulants by snorting, pt open to stopping any stimulant rx and to use non controlled meds only to address concentration/ thought process pt aiming to abstain from substances and seek substance based treatment including possibly inpt treatment will address more fully as pt's psychotic symptoms more fully resolve 1/2 - continue to gather data about patient's substance abuse, as he has a limited historian due to his psychosis. Coordinate care with PCP, Dr. Wang, who was prescribing him stimulants. Today he states that he stole prescription medications from the locker room in [facility]. He will need substance abuse treatment after discharge from the hospital, and will continue to explore options for this. 05/07 - Care coordinated with Dr. Wang's office re: patient's substance abuse and discontinuation of stimulants. - Referred to [facility] for substance abuse counseling. (3) Diverticulitis of large intestine with perforation and abscess -allow belt for colostomy bag -monitor for symptoms (4) Migraine continue outpt meds for migraine treatment if occurs (5) Cigarette nicotine dependence, uncomplicated 05/03 hold Chantix since could precipitate and aggravate psychotic symptoms , pt reports a number of past trials (unclear details due to psychotic symptoms) consider resuming Chantix if was effective in past and only if tolerated it well previously , for now nicotine patches and gum with pt having used those in past (failed wellbutrin trial) nicotine patch 14mg 1 topically a day (pt prefers this dose and smoking is 1/4-1 /2 ppd but sometimes more lately) and 2mg nicotine gum prn hourly 05/04 - hold Chantix for now, offered increase of nicotine patch to 21mg but pt preferred to maintain at 14mg but to start using nicotine gum for now 1/4 - Patient would like to quit smoking, and would like a nicotine patch at discharge. Will need f/u with PCP Dr. Wang for smoking cessation. He is also interested int he [place] Quit line, which can be arranged at discharge. (Liliana Mina PA-C) Pt was seen for face to face examination with Liliana Mina PA-C and I am in agreement with her assessment and plan as above. Reports resolution of hallucinations and delusions. Expresses feeling much more hopeful. No cogwheeling on exam. Commended for his decision to pursue rehab from here. (Bipin Martino MD) Discharge / Aftercare Planning Primary Care Physician: Name: Dr. Wang Appointment Notes: As needed Psychiatrist: Name: Monty Frey - ( bring insurance card and photo ID ) Date of Appointment: May 29, 2017 Time of Appointment: 12:45 pm Appointment Notes: [address] [facility] [address] Therapist: Name: [facility] Date of Appointment: May 19, 2017 Time of Appointment: 9:30 am Appointment Notes: [address] [facility] [address] Voip Technician: Name: None (Liliana Mina PA-C) Visit Code E&M Code: 14196 (Liliana Mina PA-C) Inventory Assets Strengths: open to treatment, prison relationship and steady job (although been on medical leave) Needs: outpt mental health treatment providers, abstaining from substances, (iLliana Mina PA-C) Risk Factors Assessment Male: Yes : Yes Health problems: Yes Mental Health Diagnoses: Yes Substance use disorders: Yes Previous psychiatric stay: No Smoker: Yes (Liliana Mina PA-C) Protective Factors Assessment Islam beliefs: No : No Responsible for young children: No Employed: No (Liliana Mina PA-C) Data Vital Signs Last 24 Hrs: Date Time Temp Pulse Resp B/P (MAP) Pulse Ox O2 Delivery O2 Flow Rate FiO2 05/09/17 06:37 36.4 85 18 115/73 97 136/89 Meds Administered Last 24 Hrs: Meds Administered (Past 24Hrs) Medications (Trade) Dose Ordered Sig/Allie Route Start Time Stop Time Status Last Admin Dose Admin Risperidone (Risperdal Tab) 2 mg BID PO 05/07/17 22:00 05/08/17 12:31 DC 05/08/17 08:15 2 MG Benztropine Mesylate (Cogentin Tab) 2 mg ONE ONCE PO 05/08/17 11:15 05/08/17 11:16 DC 05/08/17 11:13 2 MG Benztropine Mesylate (Cogentin Tab) 1 mg BID PO 05/08/17 22:00 06/07/17 21:59 05/09/17 07:59 1 MG Risperidone (Risperdal Tab) 1 mg QAM PO 05/09/17 09:00 06/08/17 08:59 05/09/17 07:59 1 MG Risperidone (Risperdal Tab) 2 mg 2200 ONCE PO 05/08/17 22:00 05/08/17 22:01 DC 05/08/17 21:49 2 MG (Liliana Mina, PA-C)
[2017-05-09] MEDS: RISPERIDONE 3 MG TAB PO SCH (22:09)
[2017-05-10 07:00] VITALS: BP_SYST 120; BP_SYST 121; BP_DIAS 75; BP_DIAS 81; PULSE 101; PULSE 85; TEMP 36.7
[2017-05-10] MEDS: NICOTINE POLACRILEX 2 MG GUM MT PRN ×2 (07:55→19:31)
[2017-05-10] MEDS: RISPERIDONE 1 MG TAB PO SCH ×2 (08:35→15:55)
[2017-05-10] MEDS: NICOTINE 14 MG/24 HR TDSY TD SCH (08:35)
[2017-05-10] MEDS: BENZTROPINE MESYLATE 1 MG TAB PO SCH ×2 (08:35→21:42)
[2017-05-10] MEDS: hydrOXYzine HCL 25 MG TAB PO PRN ×2 (09:55→19:31)
[2017-05-10] MEDS: RISPERIDONE 1 MG TAB PO PRN ×2 (12:11→16:04)
--- NOTE | 2017-05-10 16:12 | Psychiatric Progress Notes ---
Progress Note Date of Service May 10, 2017. Interval History Norbert Keenan is a 26-year-old male admitted on May 03, 2017 at 00:50 who currently lives with his finance in [place], [place], and was admitted voluntarily after he presented with psychosis. Chief Complaint "I was a little down today but now I'm feeling better". Subjective Patient was seen & assessed interval progress reviewed with Treatment Team. Per staff, patient has been showing increased affect and decreased paranoia. Again use Risperdal 1 today. Patient describes some ups and downs in his mood in the last 24 hours. Woke up feeling more depressed but experienced some mood elevation after speaking with his mother. Remains more hopeful and expresses some eagerness for discharge. He would prefer an outpatient rehabilitation at time of discharge. He acknowledges incomplete resolution of delusions but remain less compelling. Denies active thoughts of self harm. Review of Systems Denies new medication side effects Neurologic: + problem reported (denies dystonia) Sleep Information Total Hours of Sleep: 6.00 Meal Information Percent of Breakfast Consumed: 100 Percent of Lunch Consumed: 100 Percent of Dinner Consumed: 95 Mental Status Exam During interview pt is: alert and oriented, cooperative Appearance: appropriately dressed Eye contact is: good Motor behavior is: steady gait & station (mildly rigid in appearance), no abnormal motor movements (no dystonia apparent on physical examination) Speech: other (soft) Affect: depressed Mood is: other (up and down) Thought process: goal directed, clear, coherent, other Thought content: paranoid (clearing), delusions (previous thoughts of being pedophile, reduced but unresolved) Suicidal thought are: denied Homicidal thoughts are: denied Hallucinations: denies auditory, denies visual Cognition: language grossly intact Intelligence estimated to be: average Insight: limited Judgement: limited Impression Overall he continues to improve with more goal-directed thinking and reduction in delusions. Willing to pursue rehabilitation albeit with preference for outpatient. Plan (1) Psychosis - elopement precautions - reality testing -aftercare arrangements for outpt treatment -[facility], individual and group therapy while on the unit - pt rescinded 72 hour notice after being seen by psychiatrist on unit, was scared and more comfortable now per pt -risperdal ODT form 0.5mg am and 1mg hs with risperdal odt 0.5mg prn up to tid prn psychosis/agitation after review of r/b/a -klonopin 0.5mg bid prn for anxiety/insomnia -NELA for gf and mother to be obtained for collateral, aim for family meetings as well -fasting lipids and glucose since rx'ing risperdal hold ritalin, reviewed how psychostimulants can precipitate and aggravate psychotic symptoms and encourage to not use psychostimulants for time being as well reviewed how cannabis can precipitate and aggravate psychotic symptoms and encourage to abstain reviewed alcohol intoxation//withdrawal can bring out psychotic symptoms to more fully assess substance usage concerns and consider substance treatment options as appropriate given above substance usage , as psychosis clears hold Chantix since could precipitate and aggravate psychotic symptoms , pt reports a number of past trials (unclear details due to psychotic symptoms) consider resuming chantix if was effective in past and only if tolerated it well previously , for now nicotine patches and gum with pt having used those in past (failed wellbutrin trial) 05/04/17 - likely substance induced psychotic symptoms given snorting of ritalin/ adderall and cannabis usage (with also degree of past alcohol usage) - will continue to hold chantix for now since unclear timing of psychotic symptoms and want to hold any meds that could possibly be adding to presentation (low risk but still a risk) - raise risperdal odt to 1mg am and hs with maintaining odt risperdal 0.5mg prn up to tid - maintain klonopin 0.5mg up to bid prn anxiety but review aim for this to be short lived medication while inpt only given controlled med and risk of dependence - building of therapeutic alliance further and addressing substance use concerns as above - referral for substance treatment options once more stabilized - processing of underlying emotional stressors more fully once more stabilized 1/2 - psychotic symptoms continue, but risperidone has been helpful; increase to 1 mg twice a day and increase when necessary dose to 1 mg every 4 hours when necessary psychosis. - Family meeting with anthony scheduled for tomorrow, will be helpful to get collateral information from her as he is a limited historian. 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 05/06/17 - Continue current meds - Meeting with GF this AM - Reality orientation 05/07 - Increase risperidone to 2mg bid, and continue 1mg prn dose. - As psychosis improves, patient will need to work on safety plan. - Referring for OP care to [facility]. 05/08 - Change Risperdal to 1 mg. AM and 3 mg. HS - Add Cogentin 1 mg. BID for parkinsonian side effects. 05/09 - Continue medication regimen as above. - Pt tolerating Risperdal with addition of Cogentin 1mg BID. Denies ongoing parkinsonian side effects. - Plans to continue to contemplate inpatient vs. IOP rehab after discharge. 05/10 - Utilizing Risperdal 1 mg when necessary approximately once daily and tolerating adequately with standing Cogentin - Psychotic thought processes are clearly improving but unresolved (2) Stimulant use disorder 05/04/17 addressing pts use of stimulants by snorting, pt open to stopping any stimulant rx and to use non controlled meds only to address concentration/ thought process pt aiming to abstain from substances and seek substance based treatment including possibly inpt treatment will address more fully as pt's psychotic symptoms more fully resolve 05/05 - continue to gather data about patient's substance abuse, as he has a limited historian due to his psychosis. Coordinate care with PCP, Dr. Wang, who was prescribing him stimulants. Today he states that he stole prescription medications from the locker room in [facility]. He will need substance abuse treatment after discharge from the hospital, and will continue to explore options for this. 05/07 - Care coordinated with Dr. Wang's office re: patient's substance abuse and discontinuation of stimulants. - Referred to [facility] for substance abuse counseling. 05/10 - patient willing to pursue substance abuse treatment post discharge but prefers outpatient venue (3) Diverticulitis of large intestine with perforation and abscess -allow belt for colostomy bag -monitor for symptoms (4) Migraine continue outpt meds for migraine treatment if occurs (5) Cigarette nicotine dependence, uncomplicated 05/03 hold Chantix since could precipitate and aggravate psychotic symptoms , pt reports a number of past trials (unclear details due to psychotic symptoms) consider resuming Chantix if was effective in past and only if tolerated it well previously , for now nicotine patches and gum with pt having used those in past (failed wellbutrin trial) nicotine patch 14mg 1 topically a day (pt prefers this dose and smoking is 05/07-1 /2 ppd but sometimes more lately) and 2mg nicotine gum prn hourly 05/04 - hold Chantix for now, offered increase of nicotine patch to 21mg but pt preferred to maintain at 14mg but to start using nicotine gum for now /4 - Patient would like to quit smoking, and would like a nicotine patch at discharge. Will need f/u with PCP Dr. Wang for smoking cessation. He is also interested int he [place] Quit line, which can be arranged at discharge. Discharge / Aftercare Planning Primary Care Physician: Name: Dr. Wang Appointment Notes: As needed Psychiatrist: Name: Monty - Dr. Frey - ( bring insurance card and photo ID ) Date of Appointment: May 29, 2017 Time of Appointment: 12:45 pm Appointment Notes: [address] [facility] [address] Therapist: Name: [facility] Date of Appointment: May 19, 2017 Time of Appointment: 9:30 am Appointment Notes: [address] [facility] [address] Hand Shoe Cutter: Name: None Visit Code E&M Code: 57483 Inventory Assets Strengths: open to treatment, retirement relationship and steady job (although been on medical leave) Needs: outpt mental health treatment providers, abstaining from substances, Risk Factors Assessment Male: Yes : Yes Health problems: Yes Mental Health Diagnoses: Yes Substance use disorders: Yes Previous psychiatric stay: No Smoker: Yes Protective Factors Assessment Presybeterian beliefs: No : No Responsible for young children: No Employed: No Data Vital Signs Last 24 Hrs: Date Time Temp Pulse Resp B/P (MAP) Pulse Ox O2 Delivery O2 Flow Rate FiO2 05/10/17 07:00 36.7 85 16 120/75 101 121/81 Meds Administered Last 24 Hrs: Meds Administered (Past 24Hrs) Medications (Trade) Dose Ordered Sig/Allie Route Start Time Stop Time Status Last Admin Dose Admin Benztropine Mesylate (Cogentin Tab) 1 mg BID PO 05/08/17 22:00 06/07/17 21:59 05/10/17 08:35 1 MG Risperidone (Risperdal Tab) 1 mg QAM PO 05/09/17 09:00 06/08/17 08:59 05/10/17 15:55 1 MG Risperidone (Risperdal Tab) 3 mg HS PO 05/09/17 22:00 06/08/17 21:59 05/09/17 22:09 3 MG Risperidone (Risperdal Tab) 2 mg 2200 ONCE PO 05/08/17 22:00 05/08/17 22:01 DC 05/08/17 21:49 2 MG
[2017-05-10] MEDS: RISPERIDONE 3 MG TAB PO SCH (21:42)
[2017-05-11 07:08] VITALS: BP_SYST 113; BP_SYST 141; BP_DIAS 72; BP_DIAS 99; PULSE 79; PULSE 96; TEMP 36.5
[2017-05-11] MEDS: NICOTINE 14 MG/24 HR TDSY TD SCH (08:38)
[2017-05-11] MEDS: RISPERIDONE 1 MG TAB PO SCH (08:38)
[2017-05-11] MEDS: BENZTROPINE MESYLATE 1 MG TAB PO SCH (08:38)
[2017-05-11] MEDS ORDERED: RSP3 PO (10:45)
[2017-05-11] MEDS ORDERED: RSP1 PO ×2 (10:45)
[2017-05-11] MEDS ORDERED: NICO14DI5 TD (10:45)
[2017-05-11] MEDS ORDERED: NCR2 MT (10:45)
[2017-05-11] MEDS ORDERED: BENZ-88 PO (10:45)
--- NOTE | 2017-05-11 11:09 | Discharge Instructions ---
Discharge Information Report Includes Report will include the: Discharge Instructions & Summary Admission Admission Date / Time: May 03, 2017 at 00:50 Reason for Admission: Psychosis, Nos Discharge Discharge Diagnosis / Problem: Psychosis NOS, stimulant abuse Condition at Discharge: Fair Discharge Goals Goal(s): Improve function, Improve disease control, Learn about illness, Therapeutic intervention, Specific goals (address substance abuse treatment ) Activity Recommendations Activity Limitations: per Instructions/Follow-up section . Instructions / Follow-Up Instructions / Follow-Up . SPECIAL CARE INSTRUCTIONS: 1. Follow through with your scheduled aftercare appointments. If unable to keep an appointment, please call to reschedule. 2. Take your medication only as prescribed. Medication should not be changed or stopped without the approval of your doctor. In the event of worsening symptoms or concerns about side effects, contact your doctor immediately. 3. Utilize new healthy coping skills, anger management skills, and stress management skills learned during your hospitalization. Journal feelings and process them with a support person. Identify stressors or situations that may result in relapse, deterioration or inappropriate behaviors and develop a plan to deal with those issues. 4. If your coping skills are ineffective and you are in crisis, contact your outpatient providers for direction. If unable to reach your providers, please call the CAN HELP LINE AT or go to the closest Emergency Room. 5. Avoid alcohol and un-prescribed drugs. 6. You have been provided with the Mental Health Advance Directives Pamphlet for your review. AFTERCARE APPOINTMENTS: * Please call your insurance company prior to your scheduled appointment to confirm your aftercare providers are covered. Take your insurance information to your appointments. . Discharge / Aftercare Planning Primary Care Physician: Name: Dr. Wang Appointment Notes: As needed Psychiatrist: Name: Monty Frey - ( bring insurance card and photo ID ) Date of Appointment: May 29, 2017 Time of Appointment: 12:45 pm Appointment Notes: [address] [facility] [place] [address] Therapist: Name Of Therapist: Lily Sandra Date of Appointment: May 19, 2017 Time of Appointment: 9:30 am Appointment Comments: [address] [facility] [place] [address] Embossed Or Impressed Lettering Painter: Name: None . Follow-Up Care Plan for Follow-Up Care: See above. Current Hospital Diet Patient's current hospital diet: Regular Diet Discharge Diet Recommended Diet: Regular Diet Procedures Procedures Performed: No Pending Studies Pending Studies at Discharge: No Medical Emergencies . Who to Call and When: Medical Emergencies: For questions or emergencies related to your hospital stay, please contact the Inpatient Behavioral Health Unit at [phone]. A psychiatric orderly is on-call 24/11 for the Behavioral Health Unit for emergencies At any time you feel your situation is an emergency, you may also call 911 immediately. . Non-Emergent Contact Non-Emergency issues call your: Primary Care Provider, Psychiatrist, Therapist Past History Medical & Surgical History: (1) History of creation of ostomy (2) Cigarette nicotine dependence, uncomplicated (3) Migraine Advance Directives Existing Advance Directive: No Do You Have an Existing Mental: No Existing Living Will: No Existing Power of Circuit Breaker Mechanic: No Advance Directives Info Given: To Pt/S.O. Advance Directives Reason: Declines as Mental Health Visit. Discharge Summary Admission HPI Per the Admitting provider: Pt having acute psychotic symptoms with reported h/o Ritalin for concentration rx'd by pcp at 10mg am and 5mg pm per pt and Chantix for helping to quit smoking. smoking reduced but ceased and at times smoking over 1/2 ppd lately. ( 1ppd is baseline). pt smoking of cannabis increased to daily from occasional usage in past. pt on medical leave past 2 or so months due to diverticulitis and surgery with colostomy that is aiming for reversal. Pt feels depressed since on medical leave over medical condition and financial concerns and how not working past couple months. pt has past tendency of frequent heavy drinking but pulled back (not fully) in his drinking since dx with diverticulitis. last drank on with 4 drinks no report of heavy drinking in atleast 2 plus weeks if not longer. pt unable to answer time line questions. appears to use adderall not prescribe in recent days but not able to give details of amount or frequency or if taking Ritalin recently, (pt at first stated been off ritalin but then stated was not sure with psychotic features appearing to confound history from being clearly obtained. pt has some thought blocking that fluctuates in intensity during interview process and appears to be a little milder then last night in the er. pt reported some h/o command AH but only to behave in a good/preferred way. Pt endorsed Ah of voices in his head, unclear how long this has been present but appears that has been quite significant at least for a few days now if not longer. pt endorsed Thought insertion but denied IOR. pt endorsed some paranoid thinking, no delusional thinking noted. pt having racing thoughts, and limited sleep but denied other manic related symptoms. denied SI. denied HI. endorsed a couple panic attacks the past few days only. endorsed feeling anxious. denied OCD symptoms. denied other substance concerns including rx or otc then above. endorsed Benadryl usage to help with sleep with it helping only sometimes. 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 states relationship with gf is "complicated" significantly impaired concentration with pt frequently stating that was not paying attention needing securities underwriter to repeat what was stated to him with then pt able to repeat it back to show obtained on second go through Admission Exam Per the Admitting provider: Please see admission H&P. Consultations Wound care nurse. - ostomy. Hospital Course (1) Psychosis - elopement precautions - reality testing -aftercare arrangements for outpt treatment -milieu, individual and group therapy while on the unit - pt rescinded 72 hour notice after being seen by psychiatrist on unit, was scared and more comfortable now per pt -risperdal ODT form 0.5mg am and 1mg hs with risperdal ODT 0.5mg prn up to tid prn psychosis/agitation after review of r/b/a -klonopin 0.5mg bid prn for anxiety/insomnia -NELA for gf and mother to be obtained for collateral, aim for family meetings as well -fasting lipids and glucose since rx'ing risperdal hold ritalin, reviewed how psychostimulants can precipitate and aggravate psychotic symptoms and encourage to not use psychostimulants for time being as well reviewed how cannabis can precipitate and aggravate psychotic symptoms and encourage to abstain reviewed alcohol intoxation//withdrawal can bring out psychotic symptoms to more fully assess substance usage concerns and consider substance treatment options as appropriate given above substance usage , as psychosis clears hold Chantix since could precipitate and aggravate psychotic symptoms , pt reports a number of past trials (unclear details due to psychotic symptoms) consider resuming Chantix if was effective in past and only if tolerated it well previously , for now nicotine patches and gum with pt having used those in past (failed wellbutrin trial) 05/04/17 - likely substance induced psychotic symptoms given snorting of ritalin/ Adderall and cannabis usage (with also degree of past alcohol usage) - will continue to hold Chantix for now since unclear timing of psychotic symptoms and want to hold any meds that could possibly be adding to presentation (low risk but still a risk) - raise risperdal ODT to 1mg am and hs with maintaining ODT risperdal 0.5mg prn up to tid - maintain klonopin 0.5mg up to bid prn anxiety but review aim for this to be short lived medication while inpt only given controlled med and risk of dependence - building of therapeutic alliance further and addressing substance use concerns as above - referral for substance treatment options once more stabilized - processing of underlying emotional stressors more fully once more stabilized 05/05 - psychotic symptoms continue, but risperidone has been helpful; increase to 1 mg twice a day and increase when necessary dose to 1 mg every 4 hours when necessary psychosis. - Family meeting with anthony scheduled for tomorrow, will be helpful to get collateral information from her as he is a limited historian. 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 05/06/17 - Continue current meds - Meeting with GF this AM - Reality orientation 05/07 - Increase risperidone to 2mg bid, and continue 1mg prn dose. - As psychosis improves, patient will need to work on safety plan. - Referring for OP care to [facility]. 05/08 - Change Risperdal to 1 mg. AM and 3 mg. HS - Add Cogentin 1 mg. BID for parkinsonian side effects. 05/09 - Continue medication regimen as above. - Pt tolerating Risperdal with addition of Cogentin 1mg BID. Denies ongoing parkinsonian side effects. - Plans to continue to contemplate inpatient vs. IOP rehab after discharge. 05/10 - Utilizing Risperdal 1 mg when necessary approximately once daily and tolerating adequately with standing Cogentin - Psychotic thought processes are clearly improving but unresolved 05/11 - Patient doing well, requesting discharge, which anthony supports. He has been referred for outpatient treatment. Reviewed all medications with him, and he would like to have prn benztropine and risperidone prescriptions. He is requesting to return to work tomorrow. - His psychosis will be monitored on an ongoing basis as an outpatient which will ultimately help clarify the diagnosis. (2) Stimulant use disorder 05/04/17 addressing pts use of stimulants by snorting, pt open to stopping any stimulant rx and to use non controlled meds only to address concentration/ thought process pt aiming to abstain from substances and seek substance based treatment including possibly inpt treatment will address more fully as pt's psychotic symptoms more fully resolve 05/05 - continue to gather data about patient's substance abuse, as he has a limited historian due to his psychosis. Coordinate care with PCP, Dr. Wang, who was prescribing him stimulants. Today he states that he stole prescription medications from the locker room in [facility]. He will need substance abuse treatment after discharge from the hospital, and will continue to explore options for this. 05/07 - Care coordinated with Dr. Wang's office re: patient's substance abuse and discontinuation of stimulants. - Referred to [facility] for substance abuse counseling. 05/10 - patient willing to pursue substance abuse treatment post discharge but prefers outpatient venue 05/11 - patient willing for outpatient substance abuse treatment, and has been referred [facility] with an appointment on 05/19/2017. - He remains committed to sobriety, and we again reviewed the recommendations to avoid all controlled substances, recreational drugs, prescription medications that are addictive or abusable. Records to be sent to his PCPs office to coordinate care. (3) Diverticulitis of large intestine with perforation and abscess -allow belt for colostomy bag -monitor for symptoms 05/11 - follow-up with outpatient provider as scheduled on 05/29/2017. (4) Migraine continue outpt meds for migraine treatment if occurs (5) Cigarette nicotine dependence, uncomplicated 05/03 hold Chantix since could precipitate and aggravate psychotic symptoms , pt reports a number of past trials (unclear details due to psychotic symptoms) consider resuming Chantix if was effective in past and only if tolerated it well previously , for now nicotine patches and gum with pt having used those in past (failed wellbutrin trial) nicotine patch 14mg 1 topically a day (pt prefers this dose and smoking is 05/07-1 /2 ppd but sometimes more lately) and 2mg nicotine gum prn hourly 05/04 - hold Chantix for now, offered increase of nicotine patch to 21mg but pt preferred to maintain at 14mg but to start using nicotine gum for now 05/07 - Patient would like to quit smoking, and would like a nicotine patch at discharge. Will need f/u with PCP Dr. Wang for smoking cessation. He is also interested in the [facility] Quit line, which can be arranged at discharge. 05/11 - prescriptions provided for nicotine patch and gum, the patient has been educated about smoking cessation, and will follow-up with the [facility] quit line. Risk Factors Assessment Male: Yes : Yes /single/: No Higher / Fall in social status: No Access to guns: No Health problems: Yes Mental Health Diagnoses: Yes Substance use disorders: Yes Previous attempt: No Family history of suicide: No Previous psychiatric stay: No Hopelessness: No Smoker: Yes Protective Factors Assessment Mandaeism beliefs: No : No Responsible for young children: No Employed: No Stable relationships: Yes Supportive family: Yes Good rapport with provider: Yes Absence of risk factors above: Yes (risk factors were mitigated by admission to the inpatient unit, treating psychotic symptoms with medication, educating patient about his diagnosis and the recommended treatment, educating the patient about ongoing substance abuse and the recommendations for abstinence, referring him for outpatient psychiatric care and substance abuse treatment, involving him in groups and therapy on the unit, working on healthy coping skills and her discharge safety plan, and a meeting with his fiance whom he lives with. His psychotic symptoms have improved, he is completing ADLs independently, and is willing for outpatient care. He is requesting discharge, and as he is no longer at acute risk of harm to himself or others, is denying thoughts of harming himself or others, he can be managed as an outpatient at this time.) Day of Discharge Assessment Hospital course: The patient was initially paranoid, thought block, disorganized, appearing confused and unable to process information. He was adherent to prescribed risperidone, and his dose was increased to a total of 4 mg daily in divided doses. Benztropine was added for muscle stiffness and was helpful. He also received when necessary doses of risperidone and hydroxyzine. He admitted to significant substance abuse, had been snorting Adderall and Ritalin, and stated that he had stolen medications from the locker room at work. He became psychotically preoccupied with this, believing that he would be going straight to senior care at discharge, and was difficult to reassure that this was not the case. He expressed an interest in getting sober and substance abuse treatment, and ultimately agreed to outpatient treatment at [facility]. 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 His psychotic symptoms gradually improved , he was able to go to groups and participate appropriately. A family meeting was held on 05/06/2017 with his fipattie and mother. They were supportive and encouraged him to rescind his 72 hour notice, which she did. They shared that his symptoms seem to start after his surgery, when he unexpectedly ended up with an ostomy. They noticed changes in his mood and affect, and he described feeling there was a heavy burden on him and he lost his sense of humor. His mother and fipattie. Denied any concerns that he was a pedophile, stating that he had no history of this that they were aware of, and thought it was part of his psychosis. They discussed his substance abuse, family confirmed that the stimulants have been removed from the house, and confirmed that he has no access to guns. A second family meeting was held with the patient and his anthony e on 05/08/2017. And they discussed the patient's concerns regarding an incident that occurred 3 years ago when he stole a bottle of medications well at work. He felt the need to confess this to his employer, and he and his anthony e explored his concerns about this. His fiance related to staff that he seemed to be improving, and confirmed that all the alcohol, weapons (estefany denies that he had in a shed), and drugs had been removed from the home in preparation for discharge. His thinking continued to improve throughout his stay, and by the day of discharge he felt he was at or very near baseline. Day of discharge assessment: The patient states that his mood is "it's a 10." He states his sleep has improved, and his appetite is good. He reports slight muscle rigidity, which is improved when he takes benztropine, and would like to have access to this as an outpatient. He would also like to have a prescription for the when necessary risperidone. He denies paranoia, hallucinations, and delusions, and feels comfortable leaving the hospital. He denies thoughts of harming himself or anyone else. He hopes to return to work tomorrow. He states ongoing commitment to sobriety, and is willing to [facility]. We again reviewed the risks of ongoing substance abuse, and treatment recommendations moving forward, including his current medications. Overweight white male appearing stated age. Casually dressed and adequately groomed. Calm and cooperative. Seated in NAD, with fair eye contact and no abnormal movements. Speech is normal rate, volume, and tone. Mood is "it's a 10," and affect is stable and congruent. Thoughts are linear, logical and goal directed. The patient denied suicidal and homicidal ideation and was able to review his safety plan. No paranoia, delusions, or hallucinations, and did not appear to be responding to internal stimuli. Cognition was grossly intact. Alert and oriented to person, place and time. Intelligence is consistent with level of education. Insight and and judgment are fair. Laboratory Test 05/02/17 21:50 05/02/17 22:13 05/02/17 23:21 05/04/17 06:04 Urine Opiates Screen NEG Urine Methadone, Qualitative NEG Urine Barbiturates NEG Urine Phencyclidine (PCP) Level NEG Ur Amphetamine/Methamphetamine NEG MDMA (Ecstasy) Screen NEG Urine Benzodiazepines Screen NEG Urine Cocaine Metabolite NEG Urine Marijuana (THC) POS Urine Marijuana (THC Carboxy Acid) 137 White Blood Count 12.87 Red Blood Count 5.36 Hemoglobin 16.3 Hematocrit 47.4 Mean Corpuscular Volume 88.4 Mean Corpuscular Hemoglobin 30.4 Mean Corpuscular Hemoglobin Concent 34.4 Platelet Count 349 Mean Platelet Volume 9.1 Neutrophils (%) (Auto) 71.2 Lymphocytes (%) (Auto) 21.4 Monocytes (%) (Auto) 5.6 Eosinophils (%) (Auto) 1.2 Basophils (%) (Auto) 0.4 Neutrophils # (Auto) 9.16 Lymphocytes # (Auto) 2.75 Monocytes # (Auto) 0.72 Eosinophils # (Auto) 0.16 Basophils # (Auto) 0.05 RDW Standard Deviation 45.1 RDW Coefficient of Variation 13.9 Immature Granulocyte % (Auto) 0.2 Immature Granulocyte # (Auto) 0.03 Sodium Level 137 Potassium Level 3.9 Chloride Level 104 Carbon Dioxide Level 25 Anion Gap 9.0 Blood Urea Nitrogen 13 Creatinine 1.09 Est Creatinine Clear Calc Drug Dose 117.9 Estimated GFR () 106.5 Estimated GFR (Non- 91.9 BUN/Creatinine Ratio 12.0 Random Glucose 189 Calcium Level 8.5 Total Bilirubin 0.4 Direct Bilirubin < 0.1 Aspartate Amino Transferase (AST) 21 Alanine Aminotransferase (ALT) 37 Alkaline Phosphatase 82 Total Protein 8.7 Albumin 4.3 Globulin 4.4 Albumin/Globulin Ratio 1.0 Thyroid Stimulating Hormone (TSH) 1.180 Ethyl Alcohol mg/dL < 3.0 Urine Color YELLOW Urine Appearance CLEAR Urine pH 6.0 Urine Specific [place] 1.013 Urine Protein NEG Urine Glucose (UA) NEG Urine Ketones TRACE Urine Occult Blood NEG Urine Nitrite NEG Urine Bilirubin NEG Urine Urobilinogen NEG Urine Leukocyte Esterase NEG Fasting Glucose 99 Triglycerides Level 201 Cholesterol Level 195 HDL Cholesterol 29 LDL Cholesterol, Calculated 126 VLDL Cholesterol, Calculated 40 Cholesterol/HDL Ratio 6.7 Test 05/07/17 10:41 POC Glucose 153 Total Time Total Time Spent (min): Greater than 30 minutes Total Time Included: examination of the patient, discharge planning, medication reconciliation Tobacco Cessation at Discharge Smoking Status: Current Every Day Smoker (reduced from 1 ppd to various amounts but at times up to 1ppd while on chantic recently, has attempted to quit with medicinal aids "many times") FDA approved Prescription: nicotine replacement product
[2017-05-11] MEDS: NICOTINE POLACRILEX 2 MG GUM MT PRN (12:50)
[2017-05-11] MEDS: RISPERIDONE 1 MG TAB PO PRN (13:31)
== END 2017-05-11 13:33 | disposition home or self-care (01) | DRG 885 ==
LOC: C.EDB 21:35 → C.MHU 05-03 00:50
PROVIDERS: ADMIT Psychiatry & Neurology Psychiatry; ATTEND Psychiatry & Neurology Psychiatry
DX: F29 Unspecified psychosis not due to a substance or known physiological condition (principal); F15.10 Other stimulant abuse, uncomplicated; F17.210 Nicotine dependence, cigarettes, uncomplicated; F12.90 Cannabis use, unspecified, uncomplicated; Z79.899 Other long term (current) drug therapy; Z93.3 Colostomy status; Z87.19 Personal history of other diseases of the digestive system; Z82.49 Family history of ischemic heart disease and other diseases of the circulatory system; Z83.3 Family history of diabetes mellitus; Z81.1 Family history of alcohol abuse and dependence

== ENCOUNTER → 2017-06-04 | Outpatient (CLI) | payer OTHER ==
[~2017-06-04] MED LIST changes: +BENZ-88 PO; -CHN/1 PO; -DOXY100C76 PO; -METH10TA4 PO; -METH5TAB4 PO; +NCR2 MT; +NICO14DI5 TD; +OPTIRAY 320 IV PRN; +RSP1 PO; +RSP3 PO
--- NOTE | 2017-06-05 07:51 | DIAGNOSTIC IMAGING REPORT ---
CT ABD/PELVIS IV AND ORAL CONT CLINICAL HISTORY: Diverticulitis. Abdominal pain. Possible abscess. COMPARISON STUDY: 12/04/2016 TECHNIQUE: Following the IV administration of 94 mL of Optiray-320, CT scan of the abdomen and pelvis was performed from the lung bases to the proximal femurs. Images are reviewed in the axial, sagittal, and coronal planes. IV contrast was administered without complication. A dose lowering technique was utilized adhering to the principles of ALARA. CT DOSE: FINDINGS: Lower chest: The heart is normal in size and configuration, without pericardial effusion. The lung bases and pleural spaces are clear. Liver: There is mild hepatic steatosis. No focal hepatic masses are visualized. Gallbladder: Unremarkable. Spleen: Normal in size and attenuation. Pancreas: Unremarkable. Adrenal glands: Unremarkable. Kidneys: There is symmetric renal cortical enhancement. The kidneys are normal in size without hydronephrosis. Bowel: Since the prior study, the patient is undergone a double barrel left lower quadrant colostomy. There is sigmoid diverticulosis, sigmoid wall thickening, and mild infiltration of the perisigmoid fat. The findings are consistent with diverticulitis. There is been significant resolution of the previously identified peridiverticular abscess. There is a 40 x 10 mm linear opacity adjacent to the lateral wall the sigmoid colon in the area of prior abscess. There are no fluid collections within this, and this is no longer fluid density. There is no current evidence of a drainable abscess. The appendix appears normal. There is no evidence of bowel obstruction. There is no evidence of free intraperitoneal air. Peritoneum: There is no intraperitoneal free air or abdominal ascites. Vasculature: The abdominal aorta is normal in course and caliber. Adenopathy: There are small perisigmoid lymph nodes, likely reactive. There is a borderline enlarged left para-aortic lymph node also statistically reactive. Pelvic viscera: There is rectosigmoid wall thickening as was previously described. Skeletal structures: No destructive osseous lesions are seen. IMPRESSION: 1. Interval surgery with creation of a left lower quadrant double barrel colostomy 2. Continued evidence for sigmoid diverticulitis. Resolving left-sided peridiverticular abscess with a residual 40 x 10 mm linear opacity in the area of prior abscess. Electronically signed by: Gustavo Brown M.D. 06/04/2017 2:30 PM Dictated Date/Time: 06/04/2017 2:21 PM
== END | disposition home or self-care (01) ==
LOC: C.CTS 13:56
PROVIDERS: ATTEND Colon & Rectal Surgery
DX: K57.20 Diverticulitis of large intestine with perforation and abscess without bleeding (principal); Z93.3 Colostomy status

== ENCOUNTER 2022-03-13 15:24 | Inpatient (IN) ==
[2022-03-13] MEDS ORDERED: SODIUM CHLORIDE 0.9% 1000ML 1,000 ML IV ONE (16:45)
[2022-03-13 17:03] LABS: Basophils # (auto) 0.03 K/uL (0-0.2); Basophils % (auto) 0.2 %; Eosinophils # (auto) 0.04 K/uL (0-0.50); Eosinophils % (auto) 0.3 %; Hematocrit (blood only) 45.4 % (40.1-51.0); Hemoglobin 15.6 g/dl (14.0-18.0); Immature Granulocytes # (auto) 0.03 K/uL (0.00-0.02); Immature Granulocytes % (auto) 0.2 %; Lymphocytes # (auto) 1.11 K/uL (1.2-3.4); Lymphocytes % (auto) 8.4 %; Mean Corpuscular Hemoglobin 29.1 pg (25.0-34.0); Mean Corpuscular Hgb Conc 34.4 g/dL (32.0-36.0); Mean Corpuscular Volume 84.5 fL (80.0-100.0); Mean Platelet Volume 9.7 fL (9.4-12.4); Monocytes # (auto) 0.71 K/uL (0.24-0.82); Monocytes % (auto) 5.4 %; Neutrophils % (auto) 85.5 %; Platelet Count 296 K/uL (130-400); RDW Coefficient of Variation 12.7 % (11.5-14.5); RDW Standard Deviation 38.5 fL (36.4-46.3); Red Blood Count 5.37 M/uL (4.63-6.08); White Blood Count 13.22 K/ul (4.8-10.8)
[2022-03-13 17:36] LABS: Acetaminophen < 3 ug/ml (10-30); Salicylate < 3.0 mg/dl (3.0-30)
[2022-03-13 17:48] LABS: Albumin Globulin Ratio 1.5 (0.9-2); Albumin Level 4.5 gm/dl (3.4-5.0); Bilirubin,Total 1.5 mg/dl (0.2-1.0); Calcium 9.2 mg/dl (8.5-10.1); Creatinine Clr Calc Pharmacy 121.9 ml/min; Est GFR (African American) 130.2 ml/min; Est GFR (Non-African American) 112.3 ml/min; Globulin 3.1 gm/dl (2.5-4.0); Potassium 3.6 mmol/L (3.5-5.1); Total Protein 7.6 gm/dl (6.0-8.3)
[2022-03-13 19:52] LABS: Appearance Urine Clear (Clear); Bacteria Urine Automated Negative (Negative); Bilirubin Urine Negative (Negative); Blood Urine Negative (Negative); Color Urine Dark Yellow; Glucose Urine UA Negative (Negative); Ketones Urine 3+ (Negative); Leukocyte Esterase Urine Trace (Negative); Nitrite Urine Negative (Negative); Protein Urine Trace (Negative); Specific Gravity Urine 1.023 (1.000-1.030); Urobilinogen Urine Negative (Negative); pH Urine 5.5 (4.5-7.5)
--- NOTE | 2022-03-13 19:59 | Emergency Department Note ---
ED Visit Note The patient was taken in signout from Dr. Collado at the change of shift. Please see that note for details. The patient was pending medical clearance for psychiatric evaluation and admission. The patient is a 31 gentleman with a past medical history of psychosis (mother clarified that there is no formal diagnosis of schizophrenia) and alcohol use who presents to emergency department with worsening hallucinations in setting of stopping his medications abruptly. The patient reports/describes command hallucinations. Prior 302 admissions. Received IVF for dehydration with bicarb 20 and Agap 17. Repeat BMP pending. Urine drug screen pending. Repeat BMP after IV fluid hydration shows normalization with bicarbonate of 22 and anion gap of 10, within normal limits. Glucose 60s improved with juice. Urine drug screen was obtained and was unremarkable. The patient was medically cleared. Psychiatric case management evaluation was completed and given the patient's current psychosis he does not have decision-making capacity to consent and so 302 petition was drafted with delegate evaluation pending for bed search. The patient was signed out to Dr. Alex at change of shift. .
--- NOTE | 2022-03-13 20:04 | Emergency Department Note ---
Impression & Plan Auditory hallucinations, Hallucinations, visual, Nonadherence to medication, Acute dehydration ED Provider Note NAME: DIEGO HUTCHINS Jr AGE: 31 SEX: M : 1990 ARRIVES VIA: Walk-In INFORMANT: Patient, ED PROVIDER(S): Maciel Collado MD Chief Complaint: Mental wellness concern HPI: Patient presents due to concern for mental wellness concern the patient is not eating or drinking. The patient does have a known history of schizophrenia but abruptly stopped his medications several weeks ago. Patient does not complain of any physical pain. The patient denies any specific SI or HI. The patient does have access to swords but no guns. Patient has had decreased appetite and sleep. The patient has not slept in several days. The patient has not been eating anything of nutritional value. The patient does admit to smoking cigarettes and did drink several Yeungling beers today. Patient denies any drug use. Patient has been seeing and hearing things and when asked whether or not he is having any command hallucinations he states "it depends." ROS: See HPI for pertinent positives and negatives. A total of 10 systems were reviewed and otherwise negative. Past medical history: See below Surgical history: See below Social history: See below Physical Exam: GENERAL: NAD, wearing a mask, non-toxic. EYE EXAM: Normal conjunctiva. PERRL, no anisocoria and EOM's grossly intact w/o pain. NECK: Supple, no nuchal rigidity, no adenopathy, non-tender. No signs of meningismus. FROM of the neck with good chin to chest and neck extension. No stridor. LUNGS: Clear to auscultation. Normal chest wall mechanics. HEART: NSR, no MRG. ABDOMEN: Abdomen soft, non-tender, normo-active bowel sounds, no masses, no rebound or guarding. BACK: No CVA TTP. SKIN: No rashes and no bruising. UPPER EXTREMITIES: Upper extremities are grossly normal. LOWER EXTREMITIES: Grossly normal, no edema. NEURO EXAM: A&O x3, cranial nerves II-XII grossly intact, normal speech, moves all 4 extremities. Psych: Denies SI or HI, positive AVH. Differential diagnoses: Mood disorder, infection, hypoglycemia, electrolyte abnormalities, cardiac sources, intracerebral event, toxicologic, trauma, neurologic, as well as other pathologies. Course: Patient was seen and evaluated the bedside. Full history physical exam was performed. MDM: Patient was seen due to concern for mental wellness concern. Patient has had auditory visual hallucinations and did abruptly stopped his medications. The patient did receive 2 L of IV fluids. The patient has mild white count but denies any infectious symptoms. The patient has a mild gap slightly lower bicarb. BSG at 211. Patient has a known history of type 2 diabetes. The patient's COVID is negative. Salicylate Tylenol negative. Alcohol 95. UA and UDS pending. Patient was ordered a repeat BMP. Patient was signed out to Dr. Quinn pending reevaluation and disposition Past Med/Surg History Medical History Acid reflux ADHD Chronic back pain Depression Diverticulosis History of diverticulitis of colon ~2016 HLD (hyperlipidemia) Hypertension LLQ pain Migraine with aura and without status migrainosus, not intractable Migraine without aura Neck pain Type 2 diabetes mellitus diet controlled Surgical History H/O oral surgery History of colonoscopy History of colostomy History of colostomy reversal S/P laparoscopic-assisted sigmoidectomy Family History Unknown Parkinson's disease Grandfather Parkinson's disease FHx: migraine headaches Arthritis Myocardial infarction Grandmother Diabetes Hypertension Mother Arthritis Ulcerative colitis Grandmother Arthritis Social History Smoking Status: Current every day smoker Tobacco Type: Cigarettes Second Hand Exposure: No; Hx Alcohol Use: No Hx Substance Use: No Preferred Language: Gambian Communication Ability: Effective Seismograph Recorder Required: No Beliefs That Will Affect Care: None Current Living Situation: Alone Feels Safe at Home: Yes Assistive Devices: Glasses Allergies Allergies Allergy/AdvReac Type Severity Reaction Status Date / Time Bactrim Allergy Intermediate rash Verified 11/18/17 13:33 sulfamethoxazole Allergy Intermediate rash Verified 08/21/21 12:27 trimethoprim Allergy Intermediate rash Verified 08/21/21 12:27 animal dander Allergy Mild itching/sne Verified 08/21/21 12:27 ezing pollen extracts Allergy Mild Sneezing Verified 08/21/21 12:27 amoxicillin Allergy Unknown RASH Verified 08/21/21 12:27 varenicline AdvReac Intermediate DELIRIUM Verified 08/21/21 12:27 Home Meds Home Medications Medication Instructions Recorded Confirmed atorvastatin 40 mg tablet 40 mg PO QAM 02/22/19 03/13/22 atenolol 25 mg tablet 25 mg PO QAM 05/19/19 03/13/22 Previous Rx's Medication Instructions Recorded naratriptan 2.5 mg tablet 2.5 mg PO .COMPLEX PRN Migraine 05/20/21 Headache 30 days #9 tabs topiramate 50 mg tablet (Topamax) 50 mg PO BID 30 days #60 tabs 09/20/21 Results & Data (ED) Vital Signs Vital Signs - 24 hr 03/13/22 15:29 03/13/22 17:24 03/13/22 19:00 Temperature 37.5 C Temperature Source Temporal Artery Scan Pulse Rate 128 H Pulse Rate [Left Finger] 121 H 97 H Pulse Rhythm [Left Finger] Regular Pulse Strength [Left Finger] Normal Respiratory Rate 20 22 18 Respiratory Effort / Characteristics Non-Labored Non-Labored Respiratory Depth Normal Normal Respiratory Pattern Regular Blood Pressure 151/90 H Blood Pressure [Left Arm] 131/72 119/69 Blood Pressure Mean 110 Blood Pressure Mean [Left Arm] 91 85 Blood Pressure Position [Left Arm] Sitting Pulse Oximetry 94 98 97 Oxygen Delivery Method Room Air Room Air Room Air Sepsis Recent Fever Within 48 Hours No Sepsis New/Unexplained Change in Mental Status N/A Sepsis Action Taken by Nursing No Action Required Laboratory Data Result diagrams: 03/13/22 16:45 03/13/22 16:45 Lab Results 03/13/22 03/13/22 03/13/22 Range/Units 16:45 16:45 16:45 WBC 13.22 H (4.8-10.8) K/ul RBC 5.37 (4.63-6.08) M/uL Hgb 15.6 (14.0-18.0) g/dl Hct 45.4 (40.1-51.0) % MCV 84.5 (80.0-100.0) fL MCH 29.1 (25.0-34.0) pg MCHC 34.4 (32.0-36.0) g/dL RDW Std Deviation 38.5 (36.4-46.3) fL RDW Coeff of Shirin 12.7 (11.5-14.5) % Plt Count 296 (130-400) K/uL MPV 9.7 (9.4-12.4) fL Immature Gran % (Auto) 0.2 % Neut % (Auto) 85.5 % Lymph % (Auto) 8.4 % [place] % (Auto) 5.4 % Eos % (Auto) 0.3 % Baso % (Auto) 0.2 % Neut # (Auto) 11.30 H (1.4-6.5) K/uL Lymph # (Auto) 1.11 L (1.2-3.4) K/uL [place] # (Auto) 0.71 (0.24-0.82) K/uL Eos # (Auto) 0.04 (0-0.50) K/uL Baso # (Auto) 0.03 (0-0.2) K/uL Immature Gran # (Auto) 0.03 H (0.00-0.02) K/uL Sodium 139 (136-145) mmol/L Potassium 3.6 (3.5-5.1) mmol/L Chloride 102 (98-107) mmol/L Carbon Dioxide 20 L (21-32) mmol/L Anion Gap 17 H (3-11) BUN 24 H (6-23) mg/dl Creatinine 0.89 (0.6-1.4) mg/dl Est Cr Clr Drug Dosing 121.9 ml/min Est GFR ( Amer) 130.2 ml/min Est GFR (Non-Af Amer) 112.3 ml/min BUN/Creatinine Ratio 27.0 H (10-20) Glucose 211 H (70-99(Fasting)) mg/dl Calcium 9.2 (8.5-10.1) mg/dl Total Bilirubin 1.5 H (0.2-1.0) mg/dl AST 51 H (13-39) U/L ALT 27 (7-52) U/L Alkaline Phosphatase 80 (34-104) U/L Total Protein 7.6 (6.0-8.3) gm/dl Albumin 4.5 (3.4-5.0) gm/dl Globulin 3.1 (2.5-4.0) gm/dl Albumin/Globulin Ratio 1.5 (0.9-2) TSH 1.114 (0.300-4.500) uIu/ml Salicylates (3.0-30) mg/dl Acetaminophen (10-30) ug/ml Ethyl Alcohol mg/dL (<10.0) mg/dl SARS-CoV-2, RNA, NAAT (NEGATIVE) 03/13/22 03/13/22 03/13/22 Range/Units 16:45 16:45 16:45 WBC (4.8-10.8) K/ul RBC (4.63-6.08) M/uL Hgb (14.0-18.0) g/dl Hct (40.1-51.0) % MCV (80.0-100.0) fL MCH (25.0-34.0) pg MCHC (32.0-36.0) g/dL RDW Std Deviation (36.4-46.3) fL RDW Coeff of Shirin (11.5-14.5) % Plt Count (130-400) K/uL MPV (9.4-12.4) fL Immature Gran % (Auto) % Neut % (Auto) % Lymph % (Auto) % Seward % (Auto) % Eos % (Auto) % Baso % (Auto) % Neut # (Auto) (1.4-6.5) K/uL Lymph # (Auto) (1.2-3.4) K/uL Seward # (Auto) (0.24-0.82) K/uL Eos # (Auto) (0-0.50) K/uL Baso # (Auto) (0-0.2) K/uL Immature Gran # (Auto) (0.00-0.02) K/uL Sodium (136-145) mmol/L Potassium (3.5-5.1) mmol/L Chloride (98-107) mmol/L Carbon Dioxide (21-32) mmol/L Anion Gap (3-11) BUN (6-23) mg/dl Creatinine (0.6-1.4) mg/dl Est Cr Clr Drug Dosing ml/min Est GFR ( Amer) ml/min Est GFR (Non-Af Amer) ml/min BUN/Creatinine Ratio (10-20) Glucose (70-99(Fasting)) mg/dl Calcium (8.5-10.1) mg/dl Total Bilirubin (0.2-1.0) mg/dl AST (13-39) U/L ALT (7-52) U/L Alkaline Phosphatase (34-104) U/L Total Protein (6.0-8.3) gm/dl Albumin (3.4-5.0) gm/dl Globulin (2.5-4.0) gm/dl Albumin/Globulin Ratio (0.9-2) TSH (0.300-4.500) uIu/ml Salicylates < 3.0 L (3.0-30) mg/dl Acetaminophen < 3 L (10-30) ug/ml Ethyl Alcohol mg/dL 95.2 H (<10.0) mg/dl SARS-CoV-2, RNA, NAAT NEGATIVE (NEGATIVE) Administered Medications Discontinued Medications Sodium Chloride (Nss 1000ml) 1,000 mls @ 999 mls/hr IV .Q1H1M ONE Stop: 03/13/22 17:45 Last Infusion: 03/13/22 18:20 Dose: 0 mls/hr Documented By: Admin: 03/13/22 17:18 Dose: 999 mls/hr Documented By: TERRY Discharge Plan Visit Data Chief Complaint: Mental Health Evaluation Stated Complaint: DEHYDRATION, MENTAL HEALTH EVALUATION ED Provider: Maciel Collado Discharge Problem: Auditory hallucinations, Hallucinations, visual, Nonadherence to medication, Acute dehydration Patient Disposition: Still a Patient Forms Stand Alone Forms: [facility] [employer], Suicide Prevention Resources Prescriptions Prescriptions: No Action naratriptan 2.5 mg tablet 2.5 mg PO .COMPLEX PRN (Reason: Migraine Headache) 30 Days Qty: 9 0RF Rx Instructions: TAKE 1 TAB AT ONSET OF HEADACHE, MAY REPEAT IN 2 HRS PRN, LIMIT TO 2-3 DAYS/WEEK topiramate [Topamax] 50 mg tablet 50 mg PO BID 30 Days Qty: 60 5RF atorvastatin 40 mg tablet 40 mg PO QAM atenolol 25 mg tablet 25 mg PO QAM Referrals Referrals: Yahir Gutierrez MD [Primary Care Provider] -
[2022-03-13 20:12] LABS: Amphetamines+Metham, Urine Neg (Neg); Barbiturates, Urine Neg (Neg); Benzodiazepine, Urine Neg (Neg); Cocaine, Urine Neg (Neg); MDMA (Ecstacy), Urine Neg (Neg); Methadone, Urine Neg (Neg); Opiate, Urine Neg (Neg); Phencyclidine, Urine Neg (Neg)
[2022-03-13 20:19] LABS: Cast Urine Automated >30 /lpf (0-5)
[2022-03-13 20:20] LABS: Sperm Urine Present (None Prsent)
[2022-03-13 20:24] LABS: Epithelial Cell Urine Auto 0-5 /lpf (0-5); RBC Urine Automated 0-4 /hpf (0-4)
[2022-03-13 21:04] LABS: BUN Creatinine Ratio 27.7 (10-20); Creatinine Clr Calc Pharmacy 166.9 ml/min; Est GFR (African American) 148.2 ml/min; Est GFR (Non-African American) 127.8 ml/min; Potassium 3.4 mmol/L (3.5-5.1)
[2022-03-14] MEDS ORDERED: ONDANSETRON 4 MG OD TAB ONE (00:16)
[2022-03-14] MEDS ORDERED: ONDANSETRON 4 MG OD TAB PO STA (00:18)
[2022-03-14] MEDS: ATENOLOL 25 MG TABLET PO SCH (09:53)
[2022-03-14] MEDS: TOPIRAMATE 50 MG TAB PO SCH ×2 (09:53→20:45)
[2022-03-14] MEDS: ATORVASTATIN 40 MG TAB PO SCH ×2 (09:53→10:16)
--- NOTE | 2022-03-14 14:29 | Emergency Department Note ---
ED Visit Note Patient was signed out to me by Dr. Alex with 302 signed awaiting placement and a bed search due to psychosis. Patient had command hallucinations has not been eating and drinking. He has not been taking his meds. Patient is resting comfortably in the ER under my care. On repeat evaluation he has just eaten does not you need anything. Discussed with Abi from our psychiatric home care consultant team. They note 3 S. will likely need to CM place a consult which was done. Currently still awaiting referrals. Patient was signed out Dr. Cabrera at the change of shift. .
--- NOTE | 2022-03-14 14:36 | Emergency Department Note ---
ED Visit Note Received this patient in signout. Here on a 302 commitment for psychosis with hallucinations. Bed placement unsuccessful thus far. Psychiatry's been consulted given length of stay here. Case management continues bed search. Psychiatry did evaluate the patient and recommended repeat EKG given slightly long QTC on initial EKG. Repeat EKG as below. Signed out at end of shift pending bed placement. 66 beats minute normal sinus rhythm. No PVC or PAC. No acute ST segment elevation or depression with QTC of 478. .
--- NOTE | 2022-03-14 15:18 | Electrocardiogram Report ---
Test Reason : Blood Pressure : / mmHG Vent. Rate : 117 BPM Atrial Rate : 117 BPM P-R Int : 144 ms QRS Dur : 084 ms QT Int : 364 ms P-R-T Axes : 064 034 050 degrees QTc Int : 507 ms Poor data quality, interpretation may be adversely affected Sinus tachycardia RSR' or QR pattern in V1 suggests right ventricular conduction delay Otherwise normal ECG When compared with ECG of 29-MAY-2018 11:35, Nonspecific T wave abnormality has replaced inverted T waves in Inferior leads T wave inversion no longer evident in Lateral leads Confirmed by Yogi Helton ([id number]) on 03/14/2022 3:17:32 PM Referred By: REFERRED SELF Confirmed By:Yogi Helton
--- NOTE | 2022-03-14 16:25 | Communication Note ---
Date of Service: March 14, 2022 consult received from ED given anticipated boarding. Case discussed with ED psych CM. Patient is refusing medications and did receive 2 L IVF for poor PO intake due to psychosis. Patient has hx of hallucinations of was admit to [facility] 04/2017 and discharged on Risperdal. At that time snorting of stimulants was felt to be a contribuing factor. ED CM notes a recent hospitalization but no rx noted in surescripts. Currently they are waiting for mother to return as unclear last time took Seroquel 150 mg hs that is ordered. No sleep reported for up to a week before discharge and QTc>500 last pm, presumably on no psych meds and did receive Zofran. Requested repeat EKG, not yet available. will hold Seroquel pending confirmation of dosing. Would suggest prn Zyprexa IM if escalates and Ativan 1 mg po q 6 prn if willing to take PO. Would benefit from antipsychotic. Dr. Willson to assume primary clinical responsibility for service. Will monitor Qtc, repeat BMP in am may facilitate medical clearance/placement. Continue on 302 commitment.
[2022-03-14] MEDS ORDERED: QUEtiapine FUMARATE 25 MG TABLET PO SCH (21:00)
--- NOTE | 2022-03-15 08:03 | Electrocardiogram Report ---
Test Reason : Blood Pressure : / mmHG Vent. Rate : 061 BPM Atrial Rate : 061 BPM P-R Int : 156 ms QRS Dur : 094 ms QT Int : 470 ms P-R-T Axes : 037 035 029 degrees QTc Int : 473 ms Normal sinus rhythm Normal ECG When compared with ECG of 13-MAR-2022 16:33, Vent. rate has decreased BY 56 BPM Incomplete right bundle branch block no longer present Confirmed by Haroldo Lopez ([id number]) on 03/15/2022 8:03:18 AM Referred By: REFERRED SELF Confirmed By:Haroldo Lopez
--- NOTE | 2022-03-15 08:22 | Electrocardiogram Report ---
Test Reason : Blood Pressure : / mmHG Vent. Rate : 066 BPM Atrial Rate : 066 BPM P-R Int : 136 ms QRS Dur : 088 ms QT Int : 456 ms P-R-T Axes : 048 019 026 degrees QTc Int : 478 ms Normal sinus rhythm Incomplete right bundle branch block Normal ECG When compared with ECG of 14-MAR-2022 16:38, Incomplete right bundle branch block now present Confirmed by Haroldo Lopez ([id number]) on 03/15/2022 8:22:09 AM Referred By: REFERRED SELF Confirmed By:Haroldo Lopez
--- NOTE | 2022-03-15 10:18 | Psychiatric Consultation ---
Date of Consultation March 15, 2022 Impression / Recommendations Impression 31 yo man with history of unspecified psychosis with recent decompensation including lack of po intake and sitting in same position for hours at a time and significant indecision in context of suspected months of non-adherence with psychiatric medications of seroquel and risperidone. Presentation concerning for catatonia. Discussed plan to start ativan to treat this and seroquel at qhs to help with insomnia/psychosis and increase appetite as QTc has normalized and now is <500ms. Reviewed side effects for ativan including but not limited to: sedation, dizziness, risk of falls as well as for Seroquel including but not limited to: movement (TD, NMS), cardiac (QTc prolongation), and metabolic (stroke, insulin resistance) and necessity for fasting lipid and glucose labwork if he takes seroquel consistently and AIMS done with score of 0 though somewhat limited by his difficulty participating. Notably does have history of prior colostomy s/p reversal and diverticulitis but unclear if this could be contributing to current lack of po intake. (1) Catatonia: (2) Unspecified psychosis not due to a substance or known physiological condition: Plan -Start ativan 1mg TID po -Start seroquel 100mg qhs -302 commitment, expires afternoon of 03/18/2022, delegate continuing with bed search Risk Factors Assessment Do You Have Access To A Gun?: No Protective Factors Assessment Employed: Yes ([employer]) Psych History Identifying Data 31 yo man with history of alcohol use and unspecified psychosis previously on Seroquel and risperidone who presented to the ED for worsening po intake and now on 302 commitment. Psychiatry consulted by ED provider due to extended bed search, medication recommendations. Chief Complaint "I'm not hungry". History of Present Illness Norbert is joined at bedside by his mother Tracy and he consents to her remaining present for our interview. He makes minimal eye contact and speaks softly and briefly so it is difficult to get any significant history from him. He states he is not eating due to lack of appetite and intermittent nausea denies any concerns about food being tampered with nor odd beliefs about food. Cannot tell me the last time he took seroquel or any psychiatric medications. Agrees that he is struggling to move around. On arrival to the ED on 03/13/22 he endorsed poor sleep and auditory hallucinations and possible visual hallucinations. His mother states he was not open with her about if he continued psychiatric medication after his hospitalization last year but at that time was discharged on cogentin, risperidone 2mg qd and unknown strength of seroquel. She notes that prior to admission he would sit around not moving for hours and has been struggling to make any kind of decision about anything. Past Psychiatric History Previous Psych Admissions: [facility] in 2020 for psychosis [facility] in 2016 with stimulant misuse and hallucinations Do You Have Access To A Gun?: No Allergies Allergy/AdvReac Type Severity Reaction Status Date / Time Bactrim Allergy Intermediate rash Verified 11/18/17 13:33 sulfamethoxazole Allergy Intermediate rash Verified 08/21/21 12:27 trimethoprim Allergy Intermediate rash Verified 08/21/21 12:27 animal dander Allergy Mild itching/sne Verified 08/21/21 12:27 ezing pollen extracts Allergy Mild Sneezing Verified 08/21/21 12:27 amoxicillin Allergy Unknown RASH Verified 08/21/21 12:27 varenicline AdvReac Intermediate DELIRIUM Verified 08/21/21 12:27 Home Medications Medication Instructions Recorded Confirmed Type atorvastatin 40 mg tablet 40 mg PO QAM 02/22/19 03/13/22 History atenolol 25 mg tablet 25 mg PO QAM 05/19/19 03/13/22 History naratriptan 2.5 mg tablet 2.5 mg PO .COMPLEX PRN Migraine 05/20/21 03/13/22 Rx Headache 30 days #9 tabs topiramate 50 mg tablet (Topamax) 50 mg PO BID 30 days #60 tabs 09/20/2103/04 Rx benztropine 0.5 mg tablet 0.5 mg PO BID 03/13/22 03/13/22 History lorazepam 0.5 mg tablet 0.5 mg PO USEASDIRECTD PRN Anxiety 03/13/22 03/14/22 History methylphenidate HCl 10 mg tablet 10 mg PO BID 03/13/22 03/13/22 History (Ritalin) quetiapine 50 mg tablet 150 mg PO HS 03/13/22 03/13/22 History Substance Abuse History hx alcohol and stimulant misuse Personal History Living Arrangements: Home Beliefs That Will Affect Care: None Patient History Medical History Acid reflux ADHD Chronic back pain Depression Diverticulosis History of diverticulitis of colon ~2017 HLD (hyperlipidemia) Hypertension LLQ pain Migraine with aura and without status migrainosus, not intractable Migraine without aura Neck pain Type 2 diabetes mellitus diet controlled Surgical History H/O oral surgery History of colonoscopy History of colostomy History of colostomy reversal S/P laparoscopic-assisted sigmoidectomy Family History Unknown Parkinson's disease Grandfather Parkinson's disease FHx: migraine headaches Arthritis Myocardial infarction Grandmother Diabetes Hypertension Mother Arthritis Ulcerative colitis Grandmother Arthritis Social History Smoking Status: Current every day smoker Tobacco Type: Cigarettes Second Hand Exposure: No; Hx Alcohol Use: No Hx Substance Use: No Preferred Language: Spanish Communication Ability: Effective Commercial Portfolio Manager Required: No Beliefs That Will Affect Care: None Current Living Situation: Alone Feels Safe at Home: Yes Assistive Devices: Glasses Physical Exam Psychiatric: Orientation: alert; + uncooperative Apperance: + disheveled Eye Contact: + poor eye contact Motor Behavior: + psychomotor retardation Speech: + abnormal rate/rhythm/volume of speech (very brief, soft, mumbled responses) Affect: + flat affect Cognition: + attention not intact Estimated Intelligence: consistent with education level Insight: + severely impaired insight Judgement: + severely impaired judgement Vital Signs (Past 24 Hours): Last Vital Signs Temp 37 C 03/14/22 09:52 Pulse 71 03/15/22 07:34 Resp 20 03/15/22 07:34 BP 124/71 03/15/22 07:34 Pulse Ox 98 03/15/22 07:34 O2 Del Method 03/15/22 07:34 Review of Systems Unobtainable due to mental health condition Results & Data (PSY) Diagnostic Findings QTc 478 on EKG on 03/14/22 Medications Administered Atenolol (Atenolol 25 Mg Tablet) 25 mg PO QAM NIKKY Stop: 04/13/22 08:59 Last Admin: 03/14/22 09:53 Dose: 25 mg Documented By: MT Atorvastatin Calcium (Atorvastatin 40 Mg Tab) 40 mg PO QAM [facility] Stop: 04/13/22 08:59 Last Admin: 03/14/22 10:16 Dose: Not Given Documented By: HOU[place] Topiramate (Topiramate 50 Mg Tab) 50 mg PO BID [facility] Stop: 04/13/22 08:59 Last Admin: 03/14/22 20:45 Dose: 50 mg Documented By: Admin: 03/14/22 09:53 Dose: 50 mg Documented By: HOU[place] Coding Level of Care Code 55654 Inpt Consult Level 3 Diagnoses Catatonia F06.1 Unspecified psychosis not due to a substance or known physiological condition F29 Time Spent (min) 25
[2022-03-15] MEDS: LORazepam 1 MG TAB PO SCH ×3 (10:27→21:13)
[2022-03-15] MEDS: ATENOLOL 25 MG TABLET PO SCH (12:13)
[2022-03-15] MEDS: ATORVASTATIN 40 MG TAB PO SCH (12:13)
[2022-03-15] MEDS: TOPIRAMATE 50 MG TAB PO SCH ×2 (12:13→21:13)
--- NOTE | 2022-03-15 15:46 | Emergency Department Note ---
ED Visit Note Received this patient in signout. Here on a 302 involuntary mental health commitment due to psychosis. Patient fortunately has been in the ER for several days at this point. Has been seen by psychiatry with medication recommendations today. Bed search continues with the [facility] delicate and coordination with case management. Signed out at the end of my shift. .
[2022-03-15] MEDS ORDERED: QUEtiapine FUMARATE 100 MG TABLET PO SCH (21:00)
--- NOTE | 2022-03-15 21:02 | Emergency Department Note ---
ED Visit Note This case has been signed out to me by Dr. Alex. The patient remained stable throughout the day in the emergency department. He was evaluated by psychiatry. They recommended adding Ativan and Seroquel to his medication regimen. The delegate bed search was exhausted. I discussed the 302 case with the ED psychiatric social work case manager. The case will be signed out to Dr. Cabrera. .
--- NOTE | 2022-03-16 08:50 | Emergency Department Note ---
ED Visit Note Patient signed out to me at change of shift from Dr. Cabrera. Patient medically cleared in 302 signed at time of signout. Bed search suspended o vernight. No issues reported to me overnight, patient asleep, vital signs stable. Patient signed out to Dr. Sumner in the morning. .
[2022-03-16] MEDS: TOPIRAMATE 50 MG TAB PO SCH ×2 (10:13→20:35)
[2022-03-16] MEDS: LORazepam 1 MG TAB PO SCH ×3 (10:13→20:35)
[2022-03-16] MEDS: ATENOLOL 25 MG TABLET PO SCH (10:13)
[2022-03-16] MEDS: ATORVASTATIN 40 MG TAB PO SCH (10:13)
--- NOTE | 2022-03-16 12:33 | Psychiatric Progress Note ---
Date of Service March 16, 2022 Impression / Recommendations Impression 31 yo man with history of unspecified psychosis with recent decompensation including lack of po intake and sitting in same position for hours at a time and significant indecision in context of suspected months of non-adherence with psychiatric medications of seroquel and risperidone. Presentation concerning for catatonia. Discussed plan to start ativan to treat this and seroquel at qhs to help with insomnia/psychosis and increase appetite as QTc has normalized and now is <500ms. Reviewed side effects for ativan including but not limited to: sedation, dizziness, risk of falls as well as for Seroquel including but not limited to: movement (TD, NMS), cardiac (QTc prolongation), and metabolic (stroke, insulin resistance) and necessity for fasting lipid and glucose labwork if he takes seroquel consistently and AIMS done with score of 0 though somewhat limited by his difficulty participating. 03/16/22: Slight improvement in po intake and some increase in conversation and movement after initiation of ativan, given good tolerance and ongoing concern for catatonia will increase the dose which he agrees to. Continue with seroquel, will titrate to 200mg qhs. (1) Catatonia: (2) Unspecified psychosis not due to a substance or known physiological condition: Plan -Increase ativan to 2mg TID po -Increase seroquel to 200mg qhs -302 commitment, expires at 0300 on 03/19/2022. Delegate continuing with bed search Risk Factors Assessment Do You Have Access To A Gun?: No Protective Factors Assessment Employed: Yes ([employer]) Interval History Identifying Information 31 yo man with history of alcohol use and unspecified psychosis previously on Seroquel and risperidone who presented to the ED for worsening po intake and now on 302 commitment. Psychiatry consulted by ED provider due to extended bed search, medication recommendations. Chief Complaint "I'm just nervous about life in general". Review of Systems Notes ok sleep, very poor appetite Subjective Subjective Patient was seen & assessed and interval progress reviewed. Apparently ate a little bit of applesauce last night and some of his breakfast. Has snacks at bedside but won't eat these. Taking ativan and seroquel. Denies any side effects. Thinks the ativan maybe made it "kind of" easier to eat. Moving around a little bit more in his room today and able to talk a bit more. Tells me he lives alone in mobile home in [place] and "maybe" still works at [employer]. Endorses anxiety about life in general which he cannot elaborate on. States he slept "ok". Denies auditory hallucinations or paranoia but states he's heard voices in the past. Physical Exam Psychiatric Orientation: alert; + uncooperative Apperance: + disheveled Eye Contact: + poor eye contact Motor Behavior: + psychomotor retardation Speech: + abnormal rate/rhythm/volume of speech (very brief, soft, mumbled responses) Affect: + flat affect Thought Process: + thought blocking Thought Content: reality based without delusions Hallucinations: no auditory hallucinations and no visual hallucinations Cognition: + attention not intact Estimated Intelligence: consistent with education level Insight: + severely impaired insight Judgement: + severely impaired judgement Vital Signs (Past 24 Hours) Last Vital Signs Temp 37 C 03/14/22 09:52 Pulse 85 03/16/22 06:25 Resp 20 03/16/22 06:25 BP 108/70 03/16/22 06:25 Pulse Ox 96 03/16/22 06:25 O2 Del Method 03/16/22 06:25 Results & Data ([facility]) Laboratory Results Laboratory Results - last 24 hr 03/15/22 03/15/22 03/15/22 12:54 18:11 21:44 POC Glucose 88 119 H 135 H 03/16/22 06:28 POC Glucose 83 Current Inpatient Medications Current Inpatient Medications: Current Inpatient Medications Atenolol (Atenolol 25 Mg Tablet) 25 mg PO QAM NIKKY Stop: 04/13/22 08:59 Last Admin: 03/16/22 10:13 Dose: 25 mg Atorvastatin Calcium (Atorvastatin 40 Mg Tab) 40 mg PO QAM INKKY Stop: 04/13/22 08:59 Last Admin: 03/16/22 10:13 Dose: 40 mg Lorazepam (Lorazepam 1 Mg Tab) 1 mg PO TID NIKKY Stop: 04/14/22 10:29 Last Admin: 03/16/22 10:13 Dose: 1 mg Quetiapine Fumarate (Quetiapine Fumarate 100 Mg Tablet) 100 mg PO HS NIKKY Stop: 04/14/22 20:59 Last Admin: 03/15/22 21:13 Dose: 100 mg Topiramate (Topiramate 50 Mg Tab) 50 mg PO BID NIKKY Stop: 04/13/22 08:59 Last Admin: 03/16/22 10:13 Dose: 50 mg
[2022-03-16] MEDS: THIAMINE HCL 100 MG TAB PO SCH (13:24)
[2022-03-16] MEDS: FOLIC ACID 1 MG TAB PO SCH (13:24)
--- NOTE | 2022-03-16 16:07 | Emergency Department Note ---
ED Visit Note Date and Time: 03/16/2022 4:00 Interval History: Sign out received from Dr. Franklin who reviewed details of the encounter. Vital Signs: 108/70; pulse of 85; respiratory rate of 20; temp of 37 degrees Limited Exam: Patient is awake with normal respiratory status. He has a flat affect. Skin is of normal color Summary: The patient appears comfortable on exam. He was evaluated today by psychiatry who will continue to give suggestions for medication adjustments. They are working on 303 plans. The case will be signed out to Dr. Cabrera Total Time: Pending .
--- NOTE | 2022-03-16 17:40 | Emergency Department Note ---
ED Visit Note Received this patient in signout. Patient is unfortunately been here for several days. Psychiatry has been seeing but awaiting long-term placement for inpatient psychiatric care on a 302. Signed out at the end of my shift. No acute issues. .
[2022-03-16] MEDS ORDERED: QUEtiapine FUMARATE 200 MG TAB PO SCH (21:00)
[2022-03-17] MEDS: ATENOLOL 25 MG TABLET PO SCH (09:20)
[2022-03-17] MEDS: LORazepam 1 MG TAB PO SCH ×4 (09:21→20:31)
[2022-03-17] MEDS: FOLIC ACID 1 MG TAB PO SCH (09:21)
[2022-03-17] MEDS: ATORVASTATIN 40 MG TAB PO SCH (09:21)
[2022-03-17] MEDS: THIAMINE HCL 100 MG TAB PO SCH (09:21)
[2022-03-17] MEDS: TOPIRAMATE 50 MG TAB PO SCH ×2 (09:21→20:32)
[2022-03-17 10:29] LABS: Basophils # (auto) 0.03 K/uL (0-0.2); Basophils % (auto) 0.5 %; Eosinophils # (auto) 0.32 K/uL (0-0.50); Eosinophils % (auto) 5.3 %; Hematocrit (blood only) 44.2 % (40.1-51.0); Hemoglobin 15.1 g/dl (14.0-18.0); Immature Granulocytes # (auto) 0.01 K/uL (0.00-0.02); Immature Granulocytes % (auto) 0.2 %; Lymphocytes # (auto) 1.54 K/uL (1.2-3.4); Lymphocytes % (auto) 25.4 %; Mean Corpuscular Hemoglobin 29.3 pg (25.0-34.0); Mean Corpuscular Hgb Conc 34.2 g/dL (32.0-36.0); Mean Corpuscular Volume 85.8 fL (80.0-100.0); Mean Platelet Volume 9.9 fL (9.4-12.4); Monocytes # (auto) 0.37 K/uL (0.24-0.82); Monocytes % (auto) 6.1 %; Neutrophils # (auto) 3.79 K/uL (1.4-6.5); Neutrophils % (auto) 62.5 %; Platelet Count 279 K/uL (130-400); RDW Coefficient of Variation 12.3 % (11.5-14.5); RDW Standard Deviation 38.5 fL (36.4-46.3); Red Blood Count 5.15 M/uL (4.63-6.08); White Blood Count 6.06 K/ul (4.8-10.8)
[2022-03-17 10:56] LABS: Est GFR (African American) 142.9 ml/min; Potassium 3.9 mmol/L (3.5-5.1)
[2022-03-17 10:57] LABS: Albumin Globulin Ratio 1.4 (0.9-2); Albumin Level 3.7 gm/dl (3.4-5.0); BUN Creatinine Ratio 18.3 (10-20); Bilirubin,Total 0.4 mg/dl (0.2-1.0); Creatinine Clr Calc Pharmacy 152.8 ml/min; Est GFR (Non-African American) 123.3 ml/min; Globulin 2.7 gm/dl (2.5-4.0); Total Protein 6.4 gm/dl (6.0-8.3)
[2022-03-17] MEDS ORDERED: BISMUTH SUBSALICYLATE LIQD 236 ML PO PRN (12:18)
[2022-03-17] MEDS ORDERED: ACETAMINOPHEN 325 MG TAB PO PRN (12:18)
[2022-03-17] MEDS ORDERED: LORazepam 1 MG TAB PO PRN (12:18)
[2022-03-17] MEDS ORDERED: SODIUM CHLORIDE 0.65% NA SOLN 45 ML (OCEAN) PRN (12:18)
[2022-03-17] MEDS ORDERED: MAGNESIUM HYDROXIDE SUSP 30 ML UDC PO PRN (12:18)
[2022-03-17] MEDS ORDERED: ALUMINUM/MAGNESIUM SUSP 30 ML UDC PO PRN (12:18)
[2022-03-17] MEDS ORDERED: hydrOXYzine HCl 25 MG TAB PO PRN ×2 (12:18)
--- NOTE | 2022-03-17 12:41 | Communication Note ---
Date of Service: March 17, 2022 Norbert was seen with his mother at bedside. Eating lunch and noted to be moving around much more easily. Catatonia seems to be responding well to higher dose of ativan with no signs of sedation or dizziness. He denies any side effects from seroquel. Labwork reviewed and notable for improvement of WBC, K+ normal, AST now normal. Plan for admission to U as soon as single room bed available as he will require MNPR due to psychosis and paranoia of others.
[2022-03-17] MEDS: NICOTINE POLACRILEX 2 MG GUM MT PRN (13:22)
--- NOTE | 2022-03-17 14:06 | Emergency Department Note ---
ED Visit Note The patient was taken in signout from Dr. Franklin at change of shift. The patient was initially seen by Dr. Collado. Please see his note for details of the patient's initial presentation. The patient presented to the emergency department for worsening psychosis. Bedsearch ongoing under 302. Patient had been seen by Dr. Willson psychiatry, 3 S. Patient was reconsidered for admission today. Repeat blood work was performed that was normal. Patient was subsequently admitted to 3S. .
[2022-03-17] MEDS ORDERED: FLUARIX QUADRIVALENT 0.5 ML SYR IM ONE (14:37)
[2022-03-17] MEDS ORDERED: OLANZapine 10 MG/2.1 ML SDV IM PRN (15:27)
[2022-03-17] MEDS: QUEtiapine FUMARATE 300 MG TABLET PO SCH (20:32)
--- NOTE | 2022-03-17 23:04 | Emergency Department Note ---
ED Visit Note Patient signed out to me at change of shift from Dr. Cabrera. No issues reported to me overnight. Bed search suspended overnight. Psychiatry has been involved. Patient signed out to Dr. Quinn in the morning. .
[2022-03-18] MEDS: NICOTINE POLACRILEX 2 MG GUM MT PRN ×4 (08:56→22:46)
--- NOTE | 2022-03-18 08:59 | History & Physical ---
Date of Service March 18, 2022 Impression / Recommendations Impression 31 yo man with history of unspecified psychosis with recent decompensation including lack of po intake and sitting in same position for hours at a time and significant indecision in context of suspected months of non-adherence with psychiatric medications of seroquel and risperidone. Presentation concerning for catatonia and likely schizophrenia given multiple prior episodes of psychosis versus substance-induced psychosis but UDS negative with exception of alcohol. No signs for alcohol withdrawal or Wernicke's and not felt to require AWSS at this point, continuing thiamine and folic acid given poor po intake and recent weight loss. The patient is deemed unstable and requires psychiatric hospitalization for diagnostic clarification, safety and stabilization, medication management and development of further coping skills. Discussed medication treatment options in detail over recent days and again today. Discussed risks, benefits and alternatives. Patient consented to continuing ativan for catatoni and seroquel for psychosis. Reviewed side effects including but not limited to: falls/dependency/respiratory suppression with alcohol for ativan and movement (TD, NMS), cardiac (QTc prolongation), and metabolic (stroke, insulin resistance) and necessity for fasting lipid and glucose labwork and AIMS done with score of 0 for seroquel. The patient's audit score suggests problematic substance use. Brief intervention was offered and accepted. Intervention was greater than 5 minutes in length and included assessing readiness to quit, advice on how to reduce or abstain and to set a specific goal for this hospitalization. farmworker general will also assist in anticipating barriers to reducing or abstaining from substance use and in problem-solving for solutions to those problems while arranging for referral to appropriate treatment. The patient is in precontemplative stage with regards to transtheoretical model of change given current psychosis and difficulty recalling recent use patterns. The patient is advised to decrease consumption due to depressant effects and potential for worsening psychosis and risk of interaction with prescription medications. The patient will consider reducing his use and will be provided with recovery materials to continue to educate self on how to cope with their condition without using substances and will continue with motivational interviewing as his psychosis and insight improves. MNPR due to psychosis with significant paranoia and poor tolerance of peers. (1) Schizophrenia: (2) Catatonia: (3) Unspecified psychosis not due to a substance or known physiological condition: (4) Alcohol use: Plan 03/18/22: The patient was admitted to the [facility] ([facility]) on q15 min checks (behavioral with suicide precautions) for safety. The patient will participate in group, recreational, and milieu therapies and will be offered additional individual and family sessions as clinically appropriate. -Increase to seroquel 300mg qhs -Ativan 1 mg TID for catatonia, intake is improving and moving more easily -Nicotine replacement gum -Schedule 303 commitment hearing given ongoing psychosis with poor intake and severely impaired insight and judgment as 302 commitment expires at 3am tomorrow -fasting lipid panel and glucose tomorrow morning Inventory Assets Strengths: supportive family, has housing, prior positive response to psychiatric treatment Needs: safety and stabilization, medication adjustment, additional coping skills, outpatient providers/resources Suicide Risk Level Suicide Risk Level: Low (q15 min observation checks) (denies SI and able to safety contract to alert nursing if he feels unsafe) Risk Factors Assessment Male: Yes : Yes Do You Have Access To A Gun?: No Mental Health Diagnoses: Yes Substance Use Disorders: Yes Previous Psychiatric Hospitalization: Yes Protective Factors Assessment Employed: Yes ([employer]) Supportive Family: Yes Psychiatric History Identifying Data NORBERT HUTCHINS is a 31-year-old M who currently lives in [place] alone, has a history of schizophrenia vs unspecified psychosis and substance-induced psychosis, and was admitted on 03/17/22 12:18 on a 302 involuntary commitment for lack of po intake, psychosis, significant weight loss and catatonia. Chief Complaint "I don't remember". History of Present Illness Norbert was brought to the ED by his ex-fiancee after neighbors saw him pacing and speaking incoherently. He has a history of hospitalizations for unspecified psychosis vs schizophrenia and on arrival to the ED had an ethyl alcohol level of 95 mg/dl. Further recent history per my consult note on 03/15/2022 while he was in the ED: " Norbert is joined at bedside by his mother Tracy and he consents to her remaining present for our interview. He makes minimal eye contact and speaks softly and briefly so it is difficult to get any significant history from him. He states he is not eating due to lack of appetite and intermittent nausea denies any concerns about food being tampered with nor odd beliefs about food. Cannot tell me the last time he took seroquel or any psychiatric medications. Agrees that he is struggling to move around. On arrival to the ED on 03/13/22 he endorsed poor sleep and auditory hallucinations and possible visual hallucinations. His mother states he was not open with her about if he continued psychiatric medication after his hospitalization last year but at that time was discharged on cogentin, risperidone 2mg qd and unknown strength of seroquel. She notes that prior to admission he would sit around not moving for hours and has been struggling to make any kind of decision about anything." Reviewed additional recent history per ED CM note from 03/13/22 with clarifications in bold: "Pt was brought to the ED by his ex-. She was contacted by pt's neighbors due to pt being outside the home pacing and talking nonsense. Pt's ex- states on the way to the hospital the pt was not making sense and asked her if he was a ghost. Pt's mother is present in the room when pt is seen and provides most information. Pt has lost approximately 80 lbs in the last 3-4 months due to not taking care of himself. Pt's mother states he has been hospitalized twice before, both were 302 commitments. Pt was most recently at [facility] in 2020. Pt states he was not eating or drinking so that he could prepare for a new job. When asked about what new job, the pt stated he was employed at [employer] as far as he knew, but did not clarify what we meant by preparing for a new job. The pt was on medications for mental health, but stopped taking them approximately 3 weeks ago due to "not needing them" (Per review of pharmacy records he has not filled any medications in over 6 months). It is unknown what medications the pt was on but his mother stated it was approximately 5 different medications. Pt reports hearing voices and seeing things that are not there. He stated "it depends" when asked what the voices are saying to him but he did stated that they sometimes tell him to harm himself. He does not do anything to harm himself and denies SI/HI. Pt states he has not slept in 7 days. He stated he may have had a few short naps, but no length of time for sleep." Today Norbert is moving around more easily but continues to struggle to engage with any back and forth conversation. He states "I don't remember" when asked if he was drinking any alcohol recently or what his recent use has been. Denies any recreational substance use except smoking cigarettes. Denies any recent stressors. He is unsure why he came to the ED but recalls his ex-fiancee brought him "because I was outside I guess". Eating a bit more since being admitting and start of ativan for presumed catatonia. Freeman more tired this morning. Endorses intermittent auditory hallucinations stating the content is "neutral". Does not think he needs to remain in the hospital but cannot tell me where he would go or how he would care for his basic needs like eating. Past Psychiatric History Current Psychiatric Diagnosis: unspecified psychosis Outpatient Services: none known currently, past script from Jun 2021 from Loida Williamson at [facility] Previous Psych Admissions: [facility] in May 2020 for psychosis [facility] in 2017 for substance-induced psychosis Do You Have Access To A Gun?: No History of Previous Suicide Attempt: No Past Medication Trials: risperidone, seroquel; per PDMP filled methylphenidate 10mg BID in September 2021 and ativan 0.5mg qd in Jun 2021 Past Head Trauma/Neuro History History of Concussion/Seizure: No Allergies Allergy/AdvReac Type Severity Reaction Status Date / Time Bactrim Allergy Intermediate rash Verified 11/18/17 13:33 sulfamethoxazole Allergy Intermediate rash Verified 08/21/21 12:27 trimethoprim Allergy Intermediate rash Verified 08/21/21 12:27 animal dander Allergy Mild itching/sne Verified 08/21/21 12:27 ezing pollen extracts Allergy Mild Sneezing Verified 08/21/21 12:27 amoxicillin Allergy Unknown RASH Verified 08/21/21 12:27 kiwi Allergy Verified 03/17/22 15:56 strawberry Allergy Verified 03/17/22 15:56 varenicline AdvReac Intermediate DELIRIUM Verified 08/21/21 12:27 Family History Family History of: Doesn't Know Alcohol History Hx of Alcohol Use Over the Past 12 Months: Yes (beer) AUDIT Total Score: 11 Smoking Use Have You Smoked or Used Tobacco Products in the Last 30 Days: Yes tobacco type: cigarettes Smoking Status: Current every day smoker Smoking packs per day: 10 Substance History Hx of Prescription Med Misuse Over the Past 12 Months: No Hx of Over the Counter Med Misuse Over the Past 12 Months: No Hx of Inhalent Misuse Over the Past 12 Months: No Hx of Organic Substance Use Over the Past 12 Months: No Hx of Illegal Substances/Street Drug Use Over Past 12 Months: No Problems as a Result of Past Substance Use: None Identified Personal History Living Arrangements: Home Employment Status: Unknown (maybe working at [employer] recently ) Marital Status: Beliefs That Will Affect Care: None Current Legal Problems: No Hx Legal Problems: No Patient History Medical History Acid reflux ADHD Chronic back pain Depression Diverticulosis History of diverticulitis of colon ~2016 HLD (hyperlipidemia) Hypertension LLQ pain Migraine with aura and without status migrainosus, not intractable Migraine without aura Neck pain Type 2 diabetes mellitus diet controlled Surgical History H/O oral surgery History of colonoscopy History of colostomy History of colostomy reversal S/P laparoscopic-assisted sigmoidectomy Family History Unknown Parkinson's disease Grandfather Parkinson's disease FHx: migraine headaches Arthritis Myocardial infarction Grandmother Diabetes Hypertension Mother Arthritis Ulcerative colitis Grandmother Arthritis Social History Smoking Status: Current every day smoker Tobacco Type: Cigarettes Second Hand Exposure: No; Hx Alcohol Use: No Hx Substance Use: No Preferred Language: Turkish Communication Ability: Effective Pediatric Registered Nurse Required: No Beliefs That Will Affect Care: None Current Living Situation: Alone Feels Safe at Home: Yes Assistive Devices: Glasses Review of Systems Review of Systems: All systems reviewed & are unremarkable except as noted in HPI & below Physical Exam Psychiatric: Orientation: alert, oriented to person and oriented to place Apperance: appropriately dressed and + disheveled Eye Contact: + poor eye contact Motor Behavior: steady gait and station and no abnormal motor movements Speech: + abnormal rate/rhythm/volume of speech (very brief, soft, mumbled responses) Affect: + flat affect Thought Process: + thought blocking Thought Content: + paranoid Hallucinations: + auditory hallucinations; no visual hallucinations Cognition: remote memory grossly intact and language grossly intact; + recent memory not intact and + attention not intact Estimated Intelligence: consistent with education level Insight: + severely impaired insight Judgement: + severely impaired judgement Vital Signs (Past 24 Hours): Last Vital Signs Temp 36.1 C L 03/17/22 20:34 Pulse 94 H 03/18/22 06:46 Resp 16 03/18/22 06:46 BP 124/79 03/18/22 06:46 Pulse Ox 99 03/17/22 14:14 O2 Del Method 03/17/22 14:14 Exam Statement: A physical exam was performed in the ED by Dr. Collado and Dr. Quinn for the purposes of medical clearance. I accept that physical as correct and adequate for the purposes of the inpatient physical exam. Results & Data ([facility]) Laboratory Results Laboratory Results - last 24 hr 03/17/22 03/17/22 09:53 09:53 WBC 6.06 RBC 5.15 Hgb 15.1 Hct 44.2 MCV 85.8 MCH 29.3 MCHC 34.2 RDW Std Deviation 38.5 RDW Coeff of Shirin 12.3 Plt Count 279 MPV 9.9 Immature Gran % (Auto) 0.2 Neut % (Auto) 62.5 Lymph % (Auto) 25.4 [place] % (Auto) 6.1 Eos % (Auto) 5.3 Baso % (Auto) 0.5 Neut # (Auto) 3.79 Lymph # (Auto) 1.54 [place] # (Auto) 0.37 Eos # (Auto) 0.32 Baso # (Auto) 0.03 Immature Gran # (Auto) 0.01 Sodium 141 Potassium 3.9 Chloride 107 Carbon Dioxide 27 Anion Gap 7 BUN 13 Creatinine 0.71 Est Cr Clr Drug Dosing 152.8 Est GFR ( Amer) 142.9 Est GFR (Non-Af Amer) 123.3 BUN/Creatinine Ratio 18.3 Glucose 88 Calcium 8.0 L Total Bilirubin 0.4 AST 24 ALT 25 Alkaline Phosphatase 68 Total Protein 6.4 Albumin 3.7 Globulin 2.7 Albumin/Globulin Ratio 1.4 Current Inpatient Medications Current Inpatient Medications: Current Inpatient Medications Acetaminophen (Acetaminophen 325 Mg Tab) 650 mg PO Q4H PRN PRN Reason: Headache or Minor Fever Stop: 04/16/22 12:17 Al Hydrox/Mg Hydrox/Simethicone (Aluminum/Magnesium Susp 30 Ml Udc) 30 ml PO Q4H PRN PRN Reason: GI Upset Stop: 04/16/22 12:17 Atenolol (Atenolol 25 Mg Tablet) 25 mg PO QAM [facility] Stop: 04/13/22 08:59 Last Admin: 03/17/22 09:20 Dose: 25 mg Atorvastatin Calcium (Atorvastatin 40 Mg Tab) 40 mg PO QAM NIKKY Stop: 04/13/22 08:59 Last Admin: 03/17/22 09:21 Dose: 40 mg Bismuth Subsalicylate (Bismuth Subsalicylate Liqd 236 Ml) 15 ml PO PRN PRN PRN Reason: Loose Stool Stop: 04/16/22 12:17 Folic Acid (Folic Acid 1 Mg Tab) 1 mg PO QAM [facility] Stop: 04/15/22 12:44 Last Admin: 03/17/22 09:21 Dose: 1 mg Hydroxyzine HCl (Hydroxyzine Hcl 25 Mg Tab) 50 mg PO HSZ PRN PRN Reason: Insomnia Stop: 04/16/22 12:17 Hydroxyzine HCl (Hydroxyzine Hcl 25 Mg Tab) 25 mg PO Q4H PRN PRN Reason: Anxiety Stop: 04/16/22 12:17 Lorazepam (Lorazepam 1 Mg Tab) 1 mg PO TID NIKKY Stop: 04/17/22 08:59 Magnesium Hydroxide (Magnesium Hydroxide Susp 30 Ml Udc) 30 ml PO DAILY PRN PRN Reason: Constipation Stop: 04/16/22 12:17 Nicotine Polacrilex (Nicotine Polacrilex 2 Mg Gum) 1 piece MT PRN PRN PRN Reason: nicotine cravings Stop: 04/16/22 12:55 Last Admin: 03/18/22 08:56 Dose: 1 piece Olanzapine (Olanzapine 10 Mg/2.1 Ml Sdv) 5 mg IM DAILY PRN PRN Reason: Agitation Stop: 04/17/22 08:59 Quetiapine Fumarate (Quetiapine Fumarate 300 Mg Tablet) 300 mg PO HS NIKKY Stop: 04/16/22 21:59 Last Admin: 03/17/22 20:32 Dose: 300 mg Risperidone (Risperidone 0.5 Mg Tablet) 0.5 mg PO BID PRN PRN Reason: Anxiety/Agitation Stop: 04/16/22 20:59 Sodium Chloride (Sodium Chloride 0.65% Na Soln 45 Ml ([place])) 1 - 2 sprays NA PRN PRN PRN Reason: Nasal Dryness/Congestion Stop: 04/16/22 12:17 Thiamine HCl (Thiamine Hcl 100 Mg Tab) 100 mg PO QAM [facility] Stop: 04/15/22 12:44 Last Admin: 03/17/22 09:21 Dose: 100 mg Topiramate (Topiramate 50 Mg Tab) 50 mg PO BID [facility] Stop: 04/13/22 08:59 Last Admin: 03/17/22 20:32 Dose: 50 mg
[2022-03-18] MEDS: ATENOLOL 25 MG TABLET PO SCH (09:54)
[2022-03-18] MEDS: FOLIC ACID 1 MG TAB PO SCH (09:54)
[2022-03-18] MEDS: TOPIRAMATE 50 MG TAB PO SCH ×2 (09:54→21:25)
[2022-03-18] MEDS: LORazepam 1 MG TAB PO SCH ×3 (09:54→21:24)
[2022-03-18] MEDS: THIAMINE HCL 100 MG TAB PO SCH (09:54)
[2022-03-18] MEDS: ATORVASTATIN 40 MG TAB PO SCH (09:55)
[2022-03-18] MEDS: risperiDONE 0.5 MG TABLET PO PRN (17:02)
[2022-03-18] MEDS: QUEtiapine FUMARATE 300 MG TABLET PO SCH (21:25)
[2022-03-19] MEDS: FOLIC ACID 1 MG TAB PO SCH (08:14)
[2022-03-19] MEDS: LORazepam 1 MG TAB PO SCH ×3 (08:14→21:56)
[2022-03-19] MEDS: ATENOLOL 25 MG TABLET PO SCH (08:15)
[2022-03-19] MEDS: THIAMINE HCL 100 MG TAB PO SCH (08:15)
[2022-03-19] MEDS: ATORVASTATIN 40 MG TAB PO SCH (08:15)
[2022-03-19] MEDS: TOPIRAMATE 50 MG TAB PO SCH ×2 (08:15→21:56)
[2022-03-19 08:34] LABS: Albumin Globulin Ratio 1.5 (0.9-2); Albumin Level 4.1 gm/dl (3.4-5.0); BUN Creatinine Ratio 27.4 (10-20); Bilirubin,Total 0.4 mg/dl (0.2-1.0); Calcium 9.2 mg/dl (8.5-10.1); Chol HDL Ratio 3.2 (0-5); Creatinine Clr Calc Pharmacy 148.6 ml/min; Est GFR (African American) 141.3 ml/min; Est GFR (Non-African American) 121.9 ml/min; Globulin 2.7 gm/dl (2.5-4.0); Potassium 4.1 mmol/L (3.5-5.1); Total Protein 6.8 gm/dl (6.0-8.3)
[2022-03-19] MEDS: NICOTINE POLACRILEX 2 MG GUM MT PRN ×2 (10:07→23:03)
--- NOTE | 2022-03-19 16:33 | Psychiatric Progress Note ---
Date of Service March 19, 2022 Impression / Recommendations Impression 31 yo man with history of unspecified psychosis with recent decompensation including lack of po intake and sitting in same position for hours at a time and significant indecision in context of suspected months of non-adherence with psychiatric medications of seroquel and risperidone. Presentation concerning for catatonia and likely schizophrenia given multiple prior episodes of psychosis versus substance-induced psychosis but UDS negative with exception of alcohol. No signs for alcohol withdrawal or Wernicke's and not felt to require AWSS at this point, continuing thiamine and folic acid given poor po intake and recent weight loss. The patient is deemed unstable and requires psychiatric hospitalization for diagnostic clarification, safety and stabilization, medication management and development of further coping skills. On 303 commitment since 03/18/2022. MNPR due to psychosis with significant paranoia and poor tolerance of peers. 03/19/22: Ongoing psychosis with significant thought blocking and catatonia which has been responding to ativan with improved po intake. Slow progress. On 303 commitment after hearing yesterday. No notable medication side effects. Fasting labs reviewed-elevated triglycerides, fasting glucose normal. No signs of refeeding syndrome, electrolytes stable. POC glucose stable. (1) Schizophrenia: (2) Catatonia: (3) Unspecified psychosis not due to a substance or known physiological condition: (4) Alcohol use: Plan 03/19/22: Increase seroquel to 400mg qhs. 03/18/22: The patient was admitted to the [facility] ([facility] mental health unit) on q15 min checks (behavioral with suicide precautions) for safety. The patient will participate in group, recreational, and milieu therapies and will be offered additional individual and family sessions as clinically appropriate. -Increase to seroquel 300mg qhs -Ativan 1 mg TID for catatonia, intake is improving and moving more easily -Nicotine replacement gum -Schedule 303 commitment hearing given ongoing psychosis with poor intake and severely impaired insight and judgment as 302 commitment expires at 3am tomorrow -fasting lipid panel and glucose tomorrow morning Inventory Assets Strengths: supportive family, has housing, prior positive response to psychiatric treatment Needs: safety and stabilization, medication adjustment, additional coping skills, outpatient providers/resources Suicide Risk Level Suicide Risk Level: Low (q15 min observation checks) (denies SI and able to safety contract to alert nursing if he feels unsafe) Risk Factors Assessment Male: Yes : Yes Do You Have Access To A Gun?: No Mental Health Diagnoses: Yes Substance Use Disorders: Yes Previous Psychiatric Hospitalization: Yes Protective Factors Assessment Employed: Yes ([employer]) Supportive Family: Yes Interval History Identifying Information 31 yo man with history of alcohol use and unspecified psychosis previously on Seroquel and risperidone who presented to the ED for worsening po intake and now on 302 commitment. Psychiatry consulted by ED provider due to extended bed search, medication recommendations. Chief Complaint "Ok". Review of Systems Sleep Information Total Hours of Sleep: 5.5 Sleep Comments: Falling asleep in day room and redirected to bed to sleep without difficulty Meal Information Percent Meal Consumed - Breakfast: 100 Percent Meal Consumed - Lunch: 95 Percent Meal Consumed - Dinner: 100 Nutrition Comment: pt. requests snacks after quickly eating 100% of meal Subjective Subjective Patient was seen & assessed and interval progress reviewed with treatment team nursing and social work. Eating more but still making minimal eye contact and only brief responses with attempts to engage. Could not shower last night even with encouragement. Today was able to fill out menu selections but paranoia with attempts to review treatment team plan and other paperwork declining to sign. Irritable at times. No spontaneous conversation but will respond with one or two word answers when asked. Tells me his mood is "ok" and when I attempt to review blood work results with him he walks away. Spent much of the day sitting in one position on the couch. Physical Exam Psychiatric Orientation: alert, oriented to person and oriented to place; + uncooperative Apperance: appropriately dressed and + disheveled Eye Contact: + poor eye contact Motor Behavior: steady gait and station, no abnormal motor movements and + psychomotor retardation Speech: + abnormal rate/rhythm/volume of speech (very brief, soft, mumbled responses) Affect: + flat affect Thought Process: + thought blocking Thought Content: + paranoid and reality based without delusions Hallucinations: + auditory hallucinations; no visual hallucinations Cognition: remote memory grossly intact and language grossly intact; + recent memory not intact and + attention not intact Estimated Intelligence: consistent with education level Insight: + severely impaired insight Judgement: + severely impaired judgement Vital Signs (Past 24 Hours) Last Vital Signs Temp 36.8 C 03/19/22 06:00 Pulse 81 03/19/22 06:00 Resp 18 03/19/22 06:00 BP 108/70 03/19/22 06:42 Pulse Ox 99 03/17/22 14:14 O2 Del Method 03/17/22 14:14 Results & Data ([facility]) Laboratory Results Laboratory Results - last 24 hr 03/19/22 03/19/22 03/19/22 07:59 08:30 13:44 Sodium 138 Potassium 4.1 Chloride 107 Carbon Dioxide 27 Anion Gap 4 BUN 20 Creatinine 0.73 Est Cr Clr Drug Dosing 148.6 Est GFR ( Amer) 141.3 Est GFR (Non-Af Amer) 121.9 BUN/Creatinine Ratio 27.4 H Glucose 87 POC Glucose 101 H 115 H Calcium 9.2 Total Bilirubin 0.4 AST 26 ALT 35 Alkaline Phosphatase 62 Total Protein 6.8 Albumin 4.1 Globulin 2.7 Albumin/Globulin Ratio 1.5 Triglycerides 184 H Cholesterol 131 LDL Cholesterol, Calc 53 VLDL Cholesterol, Calc 37 H HDL Cholesterol 41 Cholesterol/HDL Ratio 3.2 Current Inpatient Medications Current Inpatient Medications: Current Inpatient Medications Acetaminophen (Acetaminophen 325 Mg Tab) 650 mg PO Q4H PRN PRN Reason: Headache or Minor Fever Stop: 04/16/22 12:17 Al Hydrox/Mg Hydrox/Simethicone (Aluminum/Magnesium Susp 30 Ml Udc) 30 ml PO Q4H PRN PRN Reason: GI Upset Stop: 04/16/22 12:17 Atenolol (A[facility]ol 25 Mg Tablet) [facility] Stop: 04/13/22 08:59 Last Admin: 03/19/22 08:15 Dose: 25 mg Atorvastatin Calcium (Atorvastatin 40 Mg Tab) 40 mg PO QAM [facility] Stop: 04/13/22 08:59 Last Admin: 03/19/22 08:15 Dose: 40 mg Bismuth Subsalicylate (Bismuth Subsalicylate Liqd 236 Ml) 15 ml PO PRN PRN PRN Reason: Loose Stool Stop: 04/16/22 12:17 Folic Acid (Folic Acid 1 Mg Tab) 1 mg PO QAM [facility]KK[facility] Stop: 04/15/22 12:44 Last Admin: 03/19/22 08:14 Dose: 1 mg Hydroxyzine HCl (Hydroxyzine Hcl 25 Mg Tab) 50 mg PO HSZ PRN PRN Reason: Insomnia Stop: 04/16/22 12:17 Hydroxyzine HCl (Hydroxyzine Hcl 25 Mg Tab) 25 mg PO Q4H PRN PRN Reason: Anxiety Stop: 04/16/22 12:17 Lorazepam (Lorazepam 1 Mg Tab) 1 mg PO TID NIKKY Stop: 04/17/22 08:59 Last Admin: 03/19/22 12:48 Dose: 1 mg Magnesium Hydroxide (Magnesium Hydroxide Susp 30 Ml Udc) 30 ml PO DAILY PRN PRN Reason: Constipation Stop: 04/16/22 12:17 Nicotine Polacrilex (Nicotine Polacrilex 2 Mg Gum) 1 piece MT PRN PRN PRN Reason: nicotine cravings Stop: 04/16/22 12:55 Last Admin: 03/19/22 10:07 Dose: 1 piece Olanzapine (Olanzapine 10 Mg/2.1 Ml Sdv) 5 mg IM DAILY PRN PRN Reason: Agitation Stop: 04/17/22 08:59 Quetiapine Fumarate (Quetiapine Fumarate 300 Mg Tablet) 300 mg PO HS NIKKY Stop: 04/16/22 21:59 Last Admin: 03/18/22 21:25 Dose: 300 mg Risperidone (Risperidone 0.5 Mg Tablet) 0.5 mg PO BID PRN PRN Reason: Anxiety/Agitation Stop: 04/16/22 20:59 Last Admin: 03/18/22 17:02 Dose: 0.5 mg Sodium Chloride (Sodium Chloride 0.65% Na Soln 45 Ml ([place])) 1 - 2 sprays NA PRN PRN PRN Reason: Nasal Dryness/Congestion Stop: 04/16/22 12:17 Thiamine HCl (Thiamine Hcl 100 Mg Tab) 100 mg PO QAM NIKKY Stop: 04/15/22 12:44 Last Admin: 03/19/22 08:15 Dose: 100 mg Topiramate (Topiramate 50 Mg Tab) 50 mg PO BID NIKKY Stop: 04/13/22 08:59 Last Admin: 03/19/22 08:15 Dose: 50 mg
[2022-03-19] MEDS: QUEtiapine FUMARATE 200 MG TAB PO SCH (21:57)
[2022-03-20] MEDS: NICOTINE POLACRILEX 2 MG GUM MT PRN ×2 (07:22→15:34)
[2022-03-20] MEDS: ATORVASTATIN 40 MG TAB PO SCH (08:35)
[2022-03-20] MEDS: TOPIRAMATE 50 MG TAB PO SCH ×2 (08:35→21:13)
[2022-03-20] MEDS: FOLIC ACID 1 MG TAB PO SCH (08:35)
[2022-03-20] MEDS: ATENOLOL 25 MG TABLET PO SCH (08:35)
[2022-03-20] MEDS: THIAMINE HCL 100 MG TAB PO SCH (08:36)
[2022-03-20] MEDS: LORazepam 1 MG TAB PO SCH ×3 (08:37→21:13)
--- NOTE | 2022-03-20 09:09 | Psychiatric Progress Note ---
Date of Service March 20, 2022 Impression / Recommendations Impression 31 yo man with history of unspecified psychosis with recent decompensation including lack of po intake and sitting in same position for hours at a time and significant indecision in context of suspected months of non-adherence with psychiatric medications of seroquel and risperidone. Presentation concerning for catatonia and likely schizophrenia given multiple prior episodes of psychosis versus substance-induced psychosis but UDS negative with exception of alcohol. No signs for alcohol withdrawal or Wernicke's and not felt to require AWSS at this point, continuing thiamine and folic acid given poor po intake and recent weight loss. The patient is deemed unstable and requires psychiatric hospitalization for diagnostic clarification, safety and stabilization, medication management and development of further coping skills. On 303 commitment since 03/18/2022. MNPR due to psychosis with significant paranoia and poor tolerance of peers. 03/20/22: Ongoing psychosis with significant thought blocking and catatonia which has been responding to ativan with improved po intake but still limited spontaneous engagement or attention to ADLs. Given some lightheadedness this morning will avoid further titration of ativan or seroquel at this time. If needed could consider cross-taper to risperidone as he has done well on this in the past but seroquel is helping with sleep. (1) Schizophrenia: (2) Catatonia: (3) Unspecified psychosis not due to a substance or known physiological condition: (4) Alcohol use: Plan 03/20/22: Continue current medications and tx plan. 03/19/22: Increase seroquel to 400mg qhs. 03/18/22: The patient was admitted to the [facility] ([facility] mental health unit) on q15 min checks (behavioral with suicide precautions) for safety. The patient will participate in group, recreational, and milieu therapies and will be offered additional individual and family sessions as clinically appropriate. -Increase to seroquel 300mg qhs -Ativan 1 mg TID for catatonia, intake is improving and moving more easily -Nicotine replacement gum -Schedule 303 commitment hearing given ongoing psychosis with poor intake and severely impaired insight and judgment as 302 commitment expires at 3am tomorrow -fasting lipid panel and glucose tomorrow morning Inventory Assets Strengths: supportive family, has housing, prior positive response to psychiatric treatment Needs: safety and stabilization, medication adjustment, additional coping skills, outpatient providers/resources Suicide Risk Level Suicide Risk Level: Low (q15 min observation checks) (denies SI and able to safety contract to alert nursing if he feels unsafe) Risk Factors Assessment Male: Yes : Yes Do You Have Access To A Gun?: No Mental Health Diagnoses: Yes Substance Use Disorders: Yes Previous Psychiatric Hospitalization: Yes Protective Factors Assessment Employed: Yes ([employer]) Supportive Family: Yes Interval History Identifying Information 31 yo man with history of alcohol use and unspecified psychosis previously on Seroquel and risperidone who presented to the ED for worsening po intake and now on 302 commitment. Psychiatry consulted by ED provider due to extended bed search, medication recommendations. Chief Complaint "I'm ok". Review of Systems Sleep Information Total Hours of Sleep: 6 Sleep Comments: Falling asleep in day room and redirected to bed to sleep without difficulty Meal Information Percent Meal Consumed - Breakfast: 100 Percent Meal Consumed - Lunch: 95 Percent Meal Consumed - Dinner: 100 Nutrition Comment: pt. requests snacks after quickly eating 100% of meal Subjective Subjective Patient was seen & assessed and interval progress reviewed with treatment team nursing and social work. After mid-day nawaf went to group, didn't participate but attended. This morning not responding to nurses attempts to engage in conversation, not eating breakfast but sitting in the day room. Won't shower. After morning nawaf did eat his entire breakfast and briefly attended group. Irritable at times with peers. No spontaneous communication but will answer a few directed questions. Nose is noted to have pealing skin, likely from reported sunburn he got from standing outside for hours prior to admission, without any sun protection. Also noted to have pieces of food in his fox and debris around his eyes that he seems unaware/not bothered by. Unclear if he's internally preoccupied, he denies any current voices. Endorsed some dizziness this morning that improved after he ate. No associated hypotension. Denies any other medication side effects. Cannot tolerate further conversation but did state "I ate, that's good". Physical Exam Psychiatric Orientation: alert, oriented to person and oriented to place; + uncooperative Apperance: appropriately dressed and + disheveled Eye Contact: + poor eye contact Motor Behavior: steady gait and station, no abnormal motor movements and + psychomotor retardation Speech: + abnormal rate/rhythm/volume of speech (very brief, soft, mumbled responses) Affect: + flat affect Thought Process: + thought blocking Thought Content: + preoccupation and + paranoid Hallucinations: + auditory hallucinations; no visual hallucinations Cognition: remote memory grossly intact and language grossly intact; + recent memory not intact and + attention not intact Estimated Intelligence: consistent with education level Insight: + severely impaired insight Judgement: + severely impaired judgement Vital Signs (Past 24 Hours) Last Vital Signs Temp 37.0 C 03/20/22 06:00 Pulse 92 H 03/20/22 06:39 Resp 16 03/20/22 06:00 BP 116/73 03/20/22 06:39 Pulse Ox 95 03/20/22 06:00 O2 Del Method 03/20/22 06:00 Results & Data ([facility]) Laboratory Results Laboratory Results - last 24 hr 03/19/22 03/20/22 13:44 06:16 POC Glucose 115 H 88 Current Inpatient Medications Current Inpatient Medications: Current Inpatient Medications Acetaminophen (Acetaminophen 325 Mg Tab) 650 mg PO Q4H PRN PRN Reason: Headache or Minor Fever Stop: 04/16/22 12:17 Al Hydrox/Mg Hydrox/Simethicone (Aluminum/Magnesium Susp 30 Ml Udc) 30 ml PO Q4H PRN PRN Reason: GI Upset Stop: 04/16/22 12:17 Atenolol (Atenolol 25 Mg Tablet) 25 mg PO QAM [facility] Stop: 04/13/22 08:59 Last Admin: 03/20/22 08:35 Dose: 25 mg Atorvastatin Calcium (Atorvastatin 40 Mg Tab) 40 mg PO QAM NIKKY Stop: 04/13/22 08:59 Last Admin: 03/20/22 08:35 Dose: 40 mg Bismuth Subsalicylate (Bismuth Subsalicylate Liqd 236 Ml) 15 ml PO PRN PRN PRN Reason: Loose Stool Stop: 04/16/22 12:17 Folic Acid (Folic Acid 1 Mg Tab) 1 mg PO QAM NIKKY Stop: 04/15/22 12:44 Last Admin: 03/20/22 08:35 Dose: 1 mg Hydroxyzine HCl (Hydroxyzine Hcl 25 Mg Tab) 50 mg PO HSZ PRN PRN Reason: Insomnia Stop: 04/16/22 12:17 Hydroxyzine HCl (Hydroxyzine Hcl 25 Mg Tab) 25 mg PO Q4H PRN PRN Reason: Anxiety Stop: 04/16/22 12:17 Lorazepam (Lorazepam 1 Mg Tab) 1 mg PO TID NIKKY Stop: 04/17/22 08:59 Last Admin: 03/20/22 08:37 Dose: 1 mg Magnesium Hydroxide (Magnesium Hydroxide Susp 30 Ml Udc) 30 ml PO DAILY PRN PRN Reason: Constipation Stop: 04/16/22 12:17 Nicotine Polacrilex (Nicotine Polacrilex 2 Mg Gum) 1 piece MT PRN PRN PRN Reason: nicotine cravings Stop: 04/16/22 12:55 Last Admin: 03/20/22 07:22 Dose: 1 piece Olanzapine (Olanzapine 10 Mg/2.1 Ml Sdv) 5 mg IM DAILY PRN PRN Reason: Agitation Stop: 04/17/22 08:59 Quetiapine Fumarate (Quetiapine Fumarate 200 Mg Tab) 400 mg PO HS NIKKY Stop: 04/18/22 21:59 Last Admin: 03/19/22 21:57 Dose: 400 mg Risperidone (Risperidone 0.5 Mg Tablet) 0.5 mg PO BID PRN PRN Reason: Anxiety/Agitation Stop: 04/16/22 20:59 Last Admin: 03/18/22 17:02 Dose: 0.5 mg Sodium Chloride (Sodium Chloride 0.65% Na Soln 45 Ml ([place])) 1 - 2 sprays NA PRN PRN PRN Reason: Nasal Dryness/Congestion Stop: 04/16/22 12:17 Thiamine HCl (Thiamine Hcl 100 Mg Tab) 100 mg PO QAM NIKKY Stop: 04/15/22 12:44 Last Admin: 03/20/22 08:36 Dose: 100 mg Topiramate (Topiramate 50 Mg Tab) 50 mg PO BID NIKKY Stop: 04/13/22 08:59 Last Admin: 03/20/22 08:35 Dose: 50 mg
[2022-03-20] MEDS: QUEtiapine FUMARATE 200 MG TAB PO SCH (21:13)
--- NOTE | 2022-03-21 09:09 | Psychiatric Progress Note ---
Date of Service March 21, 2022 Impression / Recommendations Impression 31 yo man with history of unspecified psychosis with recent decompensation including lack of po intake and sitting in same position for hours at a time and significant indecision in context of suspected months of non-adherence with psychiatric medications of seroquel and risperidone. Presentation concerning for catatonia and likely schizophrenia given multiple prior episodes of psychosis versus substance-induced psychosis but UDS negative with exception of alcohol. No signs for alcohol withdrawal or Wernicke's and not felt to require AWSS at this point, continuing thiamine and folic acid given poor po intake and recent weight loss. The patient is deemed unstable and requires psychiatric hospitalization for diagnostic clarification, safety and stabilization, medication management and development of further coping skills. On 303 commitment since 03/18/2022. MNPR due to psychosis with significant paranoia and poor tolerance of peers. 03/21/22: Ongoing psychosis with significant thought blocking and catatonia which has been responding to ativan with improved po intake but still limited spontaneous engagement or attention to ADLs. Starting to attend some community meetings but no other attempts at spontaneous interaction, struggles when attempts are made to get him to shower or participate in longer conversations. (1) Schizophrenia: (2) Catatonia: (3) Unspecified psychosis not due to a substance or known physiological condition: (4) Alcohol use: Plan 03/21/22: Continue current medications and tx plan. 03/20/22: Continue current medications and tx plan. 03/19/22: Increase seroquel to 400mg qhs. 03/18/22: The patient was admitted to the [facility] ([facility] unit) on q15 min checks (behavioral with suicide precautions) for safety. The patient will participate in group, recreational, and milieu therapies and will be offered additional individual and family sessions as clinically appropriate. -Increase to seroquel 300mg qhs -Ativan 1 mg TID for catatonia, intake is improving and moving more easily -Nicotine replacement gum -Schedule 303 commitment hearing given ongoing psychosis with poor intake and severely impaired insight and judgment as 302 commitment expires at 3am tomorrow -fasting lipid panel and glucose tomorrow morning Inventory Assets Strengths: supportive family, has housing, prior positive response to psychiatric treatment Needs: safety and stabilization, medication adjustment, additional coping skills, outpatient providers/resources Suicide Risk Level Suicide Risk Level: Low (q15 min observation checks) (denies SI and able to safety contract to alert nursing if he feels unsafe) Risk Factors Assessment Male: Yes : Yes Do You Have Access To A Gun?: No Mental Health Diagnoses: Yes Substance Use Disorders: Yes Previous Psychiatric Hospitalization: Yes Protective Factors Assessment Employed: Yes ([employer]) Supportive Family: Yes Interval History Identifying Information 31 yo man with history of alcohol use and unspecified psychosis previously on Seroquel and risperidone who presented to the ED for worsening po intake and now on 302 commitment. Psychiatry consulted by ED provider due to extended bed search, medication recommendations. Chief Complaint "I think I've been eating alright". Review of Systems Sleep Information Total Hours of Sleep: 6.5 Sleep Comments: Meal Information Percent Meal Consumed - Breakfast: 0 Percent Meal Consumed - Lunch: 100 Percent Meal Consumed - Dinner: 100 Nutrition Comment: pt. requests snacks after quickly eating 100% of meal Subjective Subjective Patient was seen & assessed and interval progress reviewed with treatment team nursing and social work. Continues with limited spontaneous interaction, largely isolative to his room or pacing in hallway at times. Struggles to shower or get out of his room in the morning but tends to do a bit better mid-day. Talked to his dad on the phone. Tells me his mood is "alright". Denies any medication side effects. Able to speak a bit more today after prn risperidone telling me that he's nopt currently hearing voices but heard them earlier in the day "when I tried to sit down". Cannot tell me what the voices are saying. Physical Exam Psychiatric Orientation: alert, oriented to person and oriented to place Apperance: appropriately dressed and + disheveled Eye Contact: + poor eye contact Motor Behavior: steady gait and station, no abnormal motor movements and + psychomotor retardation Speech: + abnormal rate/rhythm/volume of speech (brief, soft, mumbled responses; often latent) Affect: + flat affect Thought Process: + thought blocking Thought Content: + preoccupation and + paranoid Hallucinations: + auditory hallucinations; no visual hallucinations Cognition: remote memory grossly intact and language grossly intact; + recent m salazar not intact and + attention not intact Estimated Intelligence: consistent with education level Insight: + limited insight Judgement: + severely impaired judgement Vital Signs (Past 24 Hours) Last Vital Signs Temp 37.6 C 03/20/22 20:33 Pulse 73 03/21/22 06:47 Resp 16 03/21/22 06:47 BP 131/84 03/21/22 06:47 Pulse Ox 95 03/20/22 06:00 O2 Del Method 03/20/22 06:00 Results & Data ([facility]) Laboratory Results Laboratory Results - last 24 hr 03/20/22 03/21/22 10:41 06:58 POC Glucose 101 H 86 Current Inpatient Medications Current Inpatient Medications: Current Inpatient Medications Acetaminophen (Acetaminophen 325 Mg Tab) 650 mg PO Q4H PRN PRN Reason: Headache or Minor Fever Stop: 04/16/22 12:17 Al Hydrox/Mg Hydrox/Simethicone (Aluminum/Magnesium Susp 30 Ml Udc) 30 ml PO Q4H PRN PRN Reason: GI Upset Stop: 04/16/22 12:17 Atenolol (Atenolol 25 Mg Tablet) 25 mg PO QAM [facility] Stop: 04/13/22 08:59 Last Admin: 03/20/22 08:35 Dose: 25 mg Atorvastatin Calcium (Atorvastatin 40 Mg Tab) 40 mg PO QAM [facility] Stop: 04/13/22 08:59 Last Admin: 03/20/22 08:35 Dose: 40 mg Bismuth Subsalicylate (Bismuth Subsalicylate Liqd 236 Ml) 15 ml PO PRN PRN PRN Reason: Loose Stool Stop: 04/16/22 12:17 Folic Acid (Folic Acid 1 Mg Tab) 1 mg PO QAM [facility] Stop: 04/15/22 12:44 Last Admin: 03/20/22 08:35 Dose: 1 mg Hydroxyzine HCl (Hydroxyzine Hcl 25 Mg Tab) 50 mg PO HSZ PRN PRN Reason: Insomnia Stop: 04/16/22 12:17 Hydroxyzine HCl (Hydroxyzine Hcl 25 Mg Tab) 25 mg PO Q4H PRN PRN Reason: Anxiety Stop: 04/16/22 12:17 Lorazepam (Lorazepam 1 Mg Tab) 1 mg PO TID [facility] Stop: 04/17/22 08:59 Last Admin: 03/20/22 21:13 Dose: 1 mg Magnesium Hydroxide (Magnesium Hydroxide Susp 30 Ml Udc) 30 ml PO DAILY PRN PRN Reason: Constipation Stop: 04/16/22 12:17 Nicotine Polacrilex (Nicotine Polacrilex 2 Mg Gum) 1 piece MT PRN PRN PRN Reason: nicotine cravings Stop: 04/16/22 12:55 Last Admin: 03/20/22 15:34 Dose: 1 piece Olanzapine (Olanzapine 10 Mg/2.1 Ml Sdv) 5 mg IM DAILY PRN PRN Reason: Agitation Stop: 04/17/22 08:59 Quetiapine Fumarate (Quetiapine Fumarate 200 Mg Tab) 400 mg PO HS [facility] Stop: 04/18/22 21:59 Last Admin: 03/20/22 21:13 Dose: 400 mg Risperidone (Risperidone 0.5 Mg Tablet) 0.5 mg PO BID PRN PRN Reason: Anxiety/Agitation Stop: 04/16/22 20:59 Last Admin: 03/18/22 17:02 Dose: 0.5 mg Sodium Chloride (Sodium Chloride 0.65% Na Soln 45 Ml ([place])) 1 - 2 sprays NA PRN PRN PRN Reason: Nasal Dryness/Congestion Stop: 04/16/22 12:17 Thiamine HCl (Thiamine Hcl 100 Mg Tab) 100 mg PO QAM [facility] Stop: 04/15/22 12:44 Last Admin: 03/20/22 08:36 Dose: 100 mg Topiramate (Topiramate 50 Mg Tab) 50 mg PO BID [facility] Stop: 04/13/22 08:59 Last Admin: 03/20/22 21:13 Dose: 50 mg
[2022-03-21] MEDS: ATORVASTATIN 40 MG TAB PO SCH (09:25)
[2022-03-21] MEDS: ATENOLOL 25 MG TABLET PO SCH (09:25)
[2022-03-21] MEDS: TOPIRAMATE 50 MG TAB PO SCH ×2 (09:25→20:28)
[2022-03-21] MEDS: THIAMINE HCL 100 MG TAB PO SCH (09:25)
[2022-03-21] MEDS: FOLIC ACID 1 MG TAB PO SCH (09:25)
[2022-03-21] MEDS: LORazepam 1 MG TAB PO SCH ×3 (09:25→20:28)
[2022-03-21] MEDS: NICOTINE POLACRILEX 2 MG GUM MT PRN ×2 (14:05→20:31)
[2022-03-21] MEDS: risperiDONE 0.5 MG TABLET PO PRN (14:06)
[2022-03-21] MEDS: QUEtiapine FUMARATE 200 MG TAB PO SCH (20:29)
[2022-03-22] MEDS: ATORVASTATIN 40 MG TAB PO SCH (08:41)
[2022-03-22] MEDS: FOLIC ACID 1 MG TAB PO SCH (08:41)
[2022-03-22] MEDS: LORazepam 1 MG TAB PO SCH ×2 (08:41→13:02)
[2022-03-22] MEDS: ATENOLOL 25 MG TABLET PO SCH (08:41)
[2022-03-22] MEDS: THIAMINE HCL 100 MG TAB PO SCH (08:42)
[2022-03-22] MEDS: TOPIRAMATE 50 MG TAB PO SCH ×2 (08:42→20:33)
[2022-03-22] MEDS: NICOTINE POLACRILEX 2 MG GUM MT PRN ×2 (13:53→20:42)
--- NOTE | 2022-03-22 14:25 | Psychiatric Progress Note ---
Date of Service March 22, 2022 Impression / Recommendations Impression 31 yo man with history of unspecified psychosis with recent decompensation including lack of po intake and sitting in same position for hours at a time and significant indecision in context of suspected months of non-adherence with psychiatric medications of seroquel and risperidone. Presentation concerning for catatonia and likely schizophrenia given multiple prior episodes of psychosis versus substance-induced psychosis but UDS negative with exception of alcohol. No signs for alcohol withdrawal or Wernicke's and not felt to require AWSS at this point, continuing thiamine and folic acid given poor po intake and recent weight loss. The patient is deemed unstable and requires psychiatric hospitalization for diagnostic clarification, safety and stabilization, medication management and development of further coping skills. On 303 commitment since 03/18/2022. MNPR due to psychosis with significant paranoia and poor tolerance of peers. 03/22/22: Ongoing psychosis slightly less thought blocking today and engaging a bit more. Will attempt reduction in ativan given improvement in catatonia symptoms, consistent eating and to help with some fatigue during the day. (1) Schizophrenia: (2) Catatonia: (3) Unspecified psychosis not due to a substance or known physiological condition: (4) Alcohol use: Plan 03/22/22: Decrease ativan to 0.5mg TID. Continue with seroquel 400mg qhs. 03/21/22: Continue current medications and tx plan. 03/20/22: Continue current medications and tx plan. 03/19/22: Increase seroquel to 400mg qhs. 03/18/22: The patient was admitted to the [facility] ([facility] unit) on q15 min checks (behavioral with suicide precautions) for safety. The patient will participate in group, recreational, and milieu therapies and will be offered additional individual and family sessions as clinically appropriate. -Increase to seroquel 300mg qhs -Ativan 1 mg TID for catatonia, intake is improving and moving more easily -Nicotine replacement gum -Schedule 303 commitment hearing given ongoing psychosis with poor intake and severely impaired insight and judgment as 302 commitment expires at 3am tomorrow -fasting lipid panel and glucose tomorrow morning Inventory Assets Strengths: supportive family, has housing, prior positive response to psychiatric treatment Needs: safety and stabilization, medication adjustment, additional coping skills, outpatient providers/resources Suicide Risk Level Suicide Risk Level: Low (q15 min observation checks) (denies SI and able to safety contract to alert nursing if he feels unsafe) Risk Factors Assessment Male: Yes : Yes Do You Have Access To A Gun?: No Mental Health Diagnoses: Yes Substance Use Disorders: Yes Previous Psychiatric Hospitalization: Yes Protective Factors Assessment Employed: Yes ([employer]) Supportive Family: Yes Interval History Identifying Information 31 yo man with history of alcohol use and unspecified psychosis previously on Seroquel and risperidone who presented to the ED for worsening po intake and now on 302 commitment. Psychiatry consulted by ED provider due to extended bed search, medication recommendations. Chief Complaint "How's it going?". Review of Systems Sleep Information Total Hours of Sleep: 8.75 Meal Information Percent Meal Consumed - Breakfast: 0 Percent Meal Consumed - Lunch: 100 Percent Meal Consumed - Dinner: 100 Nutrition Comment: pt. requests snacks after quickly eating 100% of meal Subjective Subjective Patient was seen & assessed and interval progress reviewed with treatment team nursing and social work. Showered very briefly last, did not wash his hair but changed his clothes. Today slightly more talkative and engaged. Spoke with his father on the phone and attended a few groups but did not speak. Tells me he had a "lazy day" and denies any concerns. Says his mood has been "up and down" but feels the medications are "working well". Discussed option to try risperidone instead of seroquel especially given history of type II diabetes but he prefers to continue with seroquel and ativan. Discussed goal of tapering ativan. Denies any other concerns nor side effects. Physical Exam Psychiatric Orientation: alert and oriented x 3 Apperance: appropriately dressed and + disheveled Eye Contact: + fair eye contact Motor Behavior: steady gait and station, no abnormal motor movements and + psychomotor retardation Speech: + abnormal rate/rhythm/volume of speech (brief, soft, mumbled responses, decrease in latency) Affect: + flat affect Thought Process: + thought blocking (but lessening ) Thought Content: + paranoid and reality based without delusions Hallucinations: + auditory hallucinations; no visual hallucinations Cognition: remote memory grossly intact and language grossly intact; + recent memory not intact and + attention not intact Estimated Intelligence: consistent with education level Insight: + limited insight Judgement: + limited judgement Vital Signs (Past 24 Hours) Last Vital Signs Temp 36.4 C L 03/22/22 06:44 Pulse 97 H 03/22/22 06:44 Resp 16 03/22/22 06:44 BP 123/65 03/22/22 06:44 Pulse Ox 95 03/20/22 06:00 O2 Del Method 03/20/22 06:00 Results & Data ([facility]) Laboratory Results Laboratory Results - last 24 hr 03/22/22 06:34 POC Glucose 77 Current Inpatient Medications Current Inpatient Medications: Current Inpatient Medications Acetaminophen (Acetaminophen 325 Mg Tab) 650 mg PO Q4H PRN PRN Reason: Headache or Minor Fever Stop: 04/16/22 12:17 Al Hydrox/Mg Hydrox/Simethicone (Aluminum/Magnesium Susp 30 Ml Udc) 30 ml PO Q4H PRN PRN Reason: GI Upset Stop: 04/16/22 12:17 Atenolol (Atenolol 25 Mg Tablet) 25 mg PO QAM [facility] Stop: 04/13/22 08:59 Last Admin: 03/22/22 08:41 Dose: 25 mg Atorvastatin Calcium (Atorvastatin 40 Mg Tab) 40 mg PO QAM [facility] Stop: 04/13/22 08:59 Last Admin: 03/22/22 08:41 Dose: 40 mg Bismuth Subsalicylate (Bismuth Subsalicylate Liqd 236 Ml) 15 ml PO PRN PRN PRN Reason: Loose Stool Stop: 04/16/22 12:17 Folic Acid (Folic Acid 1 Mg Tab) 1 mg PO QAM [facility] Stop: 04/15/22 12:44 Last Admin: 03/22/22 08:41 Dose: 1 mg Hydroxyzine HCl (Hydroxyzine Hcl 25 Mg Tab) 50 mg PO HSZ PRN PRN Reason: Insomnia Stop: 04/16/22 12:17 Hydroxyzine HCl (Hydroxyzine Hcl 25 Mg Tab) 25 mg PO Q4H PRN PRN Reason: Anxiety Stop: 04/16/22 12:17 Lorazepam (Lorazepam 1 Mg Tab) 1 mg PO TID [facility] Stop: 04/17/22 08:59 Last Admin: 03/22/22 13:02 Dose: 1 mg Magnesium Hydroxide (Magnesium Hydroxide Susp 30 Ml Udc) 30 ml PO DAILY PRN PRN Reason: Constipation Stop: 04/16/22 12:17 Nicotine Polacrilex (Nicotine Polacrilex 2 Mg Gum) 1 piece MT PRN PRN PRN Reason: nicotine cravings Stop: 04/16/22 12:55 Last Admin: 03/22/22 13:53 Dose: 1 piece Olanzapine (Olanzapine 10 Mg/2.1 Ml Sdv) 5 mg IM DAILY PRN PRN Reason: Agitation Stop: 04/17/22 08:59 Quetiapine Fumarate (Quetiapine Fumarate 200 Mg Tab) 400 mg PO HS [facility] Stop: 04/18/22 21:59 Last Admin: 03/21/22 20:29 Dose: 400 mg Risperidone (Risperidone 0.5 Mg Tablet) 0.5 mg PO BID PRN PRN Reason: Anxiety/Agitation Stop: 04/16/22 20:59 Last Admin: 03/21/22 14:06 Dose: 0.5 mg Sodium Chloride (Sodium Chloride 0.65% Na Soln 45 Ml ([place])) 1 - 2 sprays NA PRN PRN PRN Reason: Nasal Dryness/Congestion Stop: 04/16/22 12:17 Thiamine HCl (Thiamine Hcl 100 Mg Tab) 100 mg PO QAM [facility] Stop: 04/15/22 12:44 Last Admin: 03/22/22 08:42 Dose: 100 mg Topiramate (Topiramate 50 Mg Tab) 50 mg PO BID [facility] Stop: 04/13/22 08:59 Last Admin: 03/22/22 08:42 Dose: 50 mg
[2022-03-22] MEDS: QUEtiapine FUMARATE 200 MG TAB PO SCH (20:33)
[2022-03-22] MEDS: LORazepam 0.5 MG TAB PO SCH (20:33)
[2022-03-23] MEDS: ATENOLOL 25 MG TABLET PO SCH (09:03)
[2022-03-23] MEDS: ATORVASTATIN 40 MG TAB PO SCH (09:04)
[2022-03-23] MEDS: TOPIRAMATE 50 MG TAB PO SCH ×2 (09:04→21:01)
[2022-03-23] MEDS: FOLIC ACID 1 MG TAB PO SCH (09:04)
[2022-03-23] MEDS: LORazepam 0.5 MG TAB PO SCH ×3 (09:04→21:01)
[2022-03-23] MEDS: THIAMINE HCL 100 MG TAB PO SCH (09:04)
[2022-03-23] MEDS: risperiDONE 0.5 MG TABLET PO PRN (09:38)
--- NOTE | 2022-03-23 13:34 | Psychiatric Progress Note ---
Date of Service March 23, 2022 Impression / Recommendations Impression 31 yo man with history of unspecified psychosis with recent decompensation including lack of po intake and sitting in same position for hours at a time and significant indecision in context of suspected months of non-adherence with psychiatric medications of seroquel and risperidone. Presentation concerning for catatonia and likely schizophrenia given multiple prior episodes of psychosis versus substance-induced psychosis but UDS negative with exception of alcohol. No signs for alcohol withdrawal or Wernicke's and not felt to require AWSS at this point, continuing thiamine and folic acid given poor po intake and recent weight loss. The patient is deemed unstable and requires psychiatric hospitalization for diagnostic clarification, safety and stabilization, medication management and development of further coping skills. On 303 commitment since 03/18/2022. MNPR due to psychosis with significant paranoia and poor tolerance of peers. 03/23/22: Ongoing psychosis but slowly showing some signs of progress including more social with peers today, sitting with them at lunch though remains with limited spontaneous conversation. Given ongoing fatigue during the day and good response to prn doses of risperidone will begin cross-taper from seroquel to risperidone. No worsening/re-emergence of catatonia with lowered dose of risperidone. (1) Schizophrenia: (2) Catatonia: (3) Unspecified psychosis not due to a substance or known physiological condition: (4) Alcohol use: Plan 03/23/22: Continue with ativan 0.5mg TID. Decrease seroquel to 300mg qhs. Start risperidone 0.5mg BID. 03/22/22: Decrease ativan to 0.5mg TID. Continue with seroquel 400mg qhs. 03/21/22: Continue current medications and tx plan. 03/20/22: Continue current medications and tx plan. 03/19/22: Increase seroquel to 400mg qhs. 03/18/22: The patient was admitted to the [facility] ([facility] inpatient mental health unit) on q15 min checks (behavioral with suicide precautions) for safety. The patient will participate in group, recreational, and milieu therapies and will be offered additional individual and family sessions as clinically appropriate. -Increase to seroquel 300mg qhs -Ativan 1 mg TID for catatonia, intake is improving and moving more easily -Nicotine replacement gum -Schedule 303 commitment hearing given ongoing psychosis with poor intake and severely impaired insight and judgment as 302 commitment expires at 3am tomorrow -fasting lipid panel and glucose tomorrow morning Inventory Assets Strengths: supportive family, has housing, prior positive response to psychiatric treatment Needs: safety and stabilization, medication adjustment, additional coping skills, outpatient providers/resources Suicide Risk Level Suicide Risk Level: Low (q15 min observation checks) (denies SI and able to safety contract to alert nursing if he feels unsafe) Risk Factors Assessment Male: Yes : Yes Do You Have Access To A Gun?: No Mental Health Diagnoses: Yes Substance Use Disorders: Yes Previous Psychiatric Hospitalization: Yes Protective Factors Assessment Employed: Yes ([employer]) Supportive Family: Yes Interval History Identifying Information 31 yo man with history of alcohol use and unspecified psychosis previously on Seroquel and risperidone who presented to the ED for worsening po intake and now on 302 commitment. Psychiatry consulted by ED provider due to extended bed search, medication recommendations. Chief Complaint "I'm ok". Review of Systems Sleep Information Total Hours of Sleep: 6 Meal Information Percent Meal Consumed - Breakfast: 50 Percent Meal Consumed - Lunch: 100 Percent Meal Consumed - Dinner: 100 Nutrition Comment: Subjective Subjective Patient was seen & assessed and interval progress reviewed with treatment team nursing and social work. Difficult morning with thought blocking and mumbling but received risperidone prn and then did well during the rest of the morning and afternoon including attending more groups, briefly sharing and choosing to sit with peers at lunch. Asking nursing when desiring drinks from the fridge and initiating more spontaneous conversation. Feels his mood is "ok". Remains focused on goal of discharge and returning to work. Denies auditory hallucinations today. Likes the medication but reports ongoing "tiredness" during the day even with reduced dose of ativan. Agreeable to cross-taper from seroquel to risperidone as long as this does not delay his discharge. Discussed goal that this would allow for ongoing progress. Physical Exam Psychiatric Orientation: alert and oriented x 3 Apperance: appropriately dressed and + disheveled Eye Contact: + fair eye contact Motor Behavior: steady gait and station, no abnormal motor movements and + psychomotor retardation (still stands alone in his room at times but never for more than 30minutes ) Speech: + abnormal rate/rhythm/volume of speech (soft, mumbled at times but becoming more expansive) Affect: + flat affect Thought Process: + thought blocking (but lessening ) Thought Content: + paranoid and reality based without delusions Hallucinations: no auditory hallucinations and no visual hallucinations Cognition: remote memory grossly intact and language grossly intact; + recent memory not intact and + attention not intact Estimated Intelligence: consistent with education level Insight: + limited insight Judgement: + limited judgement Vital Signs (Past 24 Hours) Last Vital Signs Temp 36.6 C 03/23/22 06:38 Pulse 103 H 03/23/22 06:39 Resp 16 03/23/22 06:38 BP 113/66 03/23/22 06:39 Pulse Ox 95 03/20/22 06:00 O2 Del Method 03/20/22 06:00 [facility] Laboratory Results Laboratory Results - last 24 hr 03/23/22 06:29 POC Glucose 124 H Current Inpatient Medications Current Inpatient Medications: Current Inpatient Medications Acetaminophen (Acetaminophen 325 Mg Tab) 650 mg PO Q4H PRN PRN Reason: Headache or Minor Fever Stop: 04/16/22 12:17 Al Hydrox/Mg Hydrox/Simethicone (Aluminum/Magnesium Susp 30 Ml Udc) 30 ml PO Q4H PRN PRN Reason: GI Upset Stop: 04/16/22 12:17 Atenolol (Atenolol 25 Mg Tablet) 25 mg PO QAM [facility] Stop: 04/13/22 08:59 Last Admin: 03/23/22 09:03 Dose: 25 mg Atorvastatin Calcium (Atorvastatin 40 Mg Tab) 40 mg PO QAM [facility] Stop: 04/13/22 08:59 Last Admin: 03/23/22 09:04 Dose: 40 mg Bismuth Subsalicylate (Bismuth Subsalicylate Liqd 236 Ml) 15 ml PO PRN PRN PRN Reason: Loose Stool Stop: 04/16/22 12:17 Folic Acid (Folic Acid 1 Mg Tab) 1 mg PO QAM [facility] Stop: 04/15/22 12:44 Last Admin: 03/23/22 09:04 Dose: 1 mg Hydroxyzine HCl (Hydroxyzine Hcl 25 Mg Tab) 50 mg PO HSZ PRN PRN Reason: Insomnia Stop: 04/16/22 12:17 Hydroxyzine HCl (Hydroxyzine Hcl 25 Mg Tab) 25 mg PO Q4H PRN PRN Reason: Anxiety Stop: 04/16/22 12:17 Lorazepam (Lorazepam 0.5 Mg Tab) 0.5 mg PO TID [facility] Stop: 04/22/22 13:59 Last Admin: 03/23/22 13:06 Dose: 0.5 mg Magnesium Hydroxide (Magnesium Hydroxide Susp 30 Ml Udc) 30 ml PO DAILY PRN PRN Reason: Constipation Stop: 04/16/22 12:17 Nicotine Polacrilex (Nicotine Polacrilex 2 Mg Gum) 1 piece MT PRN PRN PRN Reason: nicotine cravings Stop: 04/16/22 12:55 Last Admin: 03/22/22 20:42 Dose: 1 piece Olanzapine (Olanzapine 10 Mg/2.1 Ml Sdv) 5 mg IM DAILY PRN PRN Reason: Agitation Stop: 04/17/22 08:59 Risperidone (Risperidone 0.5 Mg Tablet) 0.5 mg PO BID PRN PRN Reason: Anxiety/Agitation Stop: 04/16/22 20:59 Last Admin: 03/23/22 09:38 Dose: 0.5 mg Sodium Chloride (Sodium Chloride 0.65% Na Soln 45 Ml ([place])) 1 - 2 sprays NA PRN PRN PRN Reason: Nasal Dryness/Congestion Stop: 04/16/22 12:17 Thiamine HCl (Thiamine Hcl 100 Mg Tab) 100 mg PO QAM [facility] Stop: 04/15/22 12:44 Last Admin: 03/23/22 09:04 Dose: 100 mg Topiramate (Topiramate 50 Mg Tab) 50 mg PO BID [facility] Stop: 04/13/22 08:59 Last Admin: 03/23/22 09:04 Dose: 50 mg
[2022-03-23] MEDS ORDERED: LORazepam 1 MG TAB PO SCH (14:00)
[2022-03-23] MEDS: NICOTINE POLACRILEX 2 MG GUM MT PRN (15:35)
[2022-03-23] MEDS: risperiDONE 0.5 MG TABLET PO SCH (21:01)
[2022-03-23] MEDS ORDERED: QUEtiapine FUMARATE 300 MG TABLET PO SCH (22:00)
[2022-03-24] MEDS: risperiDONE 0.5 MG TABLET PO PRN (00:41)
[2022-03-24] MEDS: THIAMINE HCL 100 MG TAB PO SCH (08:54)
[2022-03-24] MEDS: ATORVASTATIN 40 MG TAB PO SCH (08:54)
[2022-03-24] MEDS: FOLIC ACID 1 MG TAB PO SCH (08:54)
[2022-03-24] MEDS: ATENOLOL 25 MG TABLET PO SCH (08:54)
[2022-03-24] MEDS: risperiDONE 0.5 MG TABLET PO SCH ×2 (08:54→21:44)
[2022-03-24] MEDS: TOPIRAMATE 50 MG TAB PO SCH ×2 (08:55→21:44)
[2022-03-24] MEDS: LORazepam 0.5 MG TAB PO SCH (08:58)
[2022-03-24] MEDS ORDERED: LORazepam 0.5 MG TAB PO STA (09:08)
--- NOTE | 2022-03-24 13:05 | Psychiatric Progress Note ---
Date of Service March 24, 2022 Impression / Recommendations Impression 31 yo man with history of unspecified psychosis with recent decompensation including lack of po intake and sitting in same position for hours at a time and significant indecision in context of suspected months of non-adherence with psychiatric medications of seroquel and risperidone. Presentation concerning for catatonia and likely schizophrenia given multiple prior episodes of psychosis versus substance-induced psychosis but UDS negative with exception of alcohol. No signs for alcohol withdrawal or Wernicke's and not felt to require AWSS at this point, continuing thiamine and folic acid given poor po intake and recent weight loss. The patient is deemed unstable and requires psychiatric hospitalization for diagnostic clarification, safety and stabilization, medication management and development of further coping skills. On 303 commitment since 03/18/2022. MNPR due to psychosis with significant paranoia and poor tolerance of peers. 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 Patient does not want SHEETS. Referral to FEP program at [place]. 03/23/22: Continue with ativan 0.5mg TID. Decrease seroquel to 300mg qhs. Start risperidone 0.5mg BID. 03/22/22: Decrease ativan to 0.5mg TID. Continue with seroquel 400mg qhs. 03/21/22: Continue current medications and tx plan. 03/20/22: Continue current medications and tx plan. 03/19/22: Increase seroquel to 400mg qhs. 03/18/22: The patient was admitted to the [facility] ([facility] inpatient mental health unit) on q15 min checks (behavioral with suicide precautions) for safety. The patient will participate in group, recreational, and milieu therapies and will be offered additional individual and family sessions as clinically appropriate. -Increase to seroquel 300mg qhs -Ativan 1 mg TID for catatonia, intake is improving and moving more easily -Nicotine replacement gum -Schedule 303 commitment hearing given ongoing psychosis with poor intake and severely impaired insight and judgment as 302 commitment expires at 3am tomorrow -fasting lipid panel and glucose tomorrow morning Inventory Assets Strengths: supportive family, has housing, prior positive response to psychiatric treatment Needs: safety and stabilization, medication adjustment, additional coping skills, outpatient providers/resources Suicide Risk Level Suicide Risk Level: Low (q15 min observation checks) (denies SI and able to safety contract to alert nursing if he feels unsafe) Risk Factors Assessment Male: Yes : Yes Do You Have Access To A Gun?: No Mental Health Diagnoses: Yes Substance Use Disorders: Yes Previous Psychiatric Hospitalization: Yes Protective Factors Assessment Employed: Yes ([employer]) Supportive Family: Yes Interval History Identifying Information 31 yo man with history of alcohol use and unspecified psychosis previously on Seroquel and risperidone who presented to the ED for worsening po intake and now on 302 commitment. Psychiatry consulted by ED provider due to extended bed search, medication recommendations. Chief Complaint "so I have to do this to leave?" Review of Systems Sleep Information Total Hours of Sleep: 4.25 Sleep Comments: Took Risperdal for anxiety but refused Vistaril for sleep Meal Information Percent Meal Consumed - Breakfast: 0 Percent Meal Consumed - Lunch: 100 Percent Meal Consumed - Dinner: 100 Subjective Subjective Patient was seen & assessed and interval progress reviewed with treatment team. The patient was paranoid about signing releases. He had been more interactive yesterday pm in particular but did not sleep well. Seroquel and Ativan had been decreased. Physical Exam Psychiatric Orientation: alert Apperance: appropriately dressed Eye Contact: + poor eye contact Motor Behavior: steady gait and station and no abnormal motor movements Speech: + abnormal rate/rhythm/volume of speech (soft, mumbled at times but becoming more expansive) Affect: + flat affect Thought Process: + thought blocking (but lessening ) Thought Content: + paranoid Suicidal Thoughts: denies suicidal thoughts Homicidal Thoughts: denies homicidal thoughts Hallucinations: no auditory hallucinations and no visual hallucinations Cognition: + attention not intact Insight: + limited insight Judgement: + limited judgement Vital Signs (Past 24 Hours) Last Vital Signs Temp 36.6 C 03/24/22 06:00 Pulse 84 03/24/22 06:51 Resp 16 03/24/22 06:00 BP 118/82 03/24/22 06:51 Pulse Ox 97 03/24/22 06:00 O2 Del Method 03/24/22 06:00 Results & Data ([facility]) Laboratory Results Laboratory Results - last 24 hr 03/24/22 06:03 POC Glucose 95 Current Inpatient Medications Current Inpatient Medications: Current Inpatient Medications Acetaminophen (Acetaminophen 325 Mg Tab) 650 mg PO Q4H PRN PRN Reason: Headache or Minor Fever Stop: 04/16/22 12:17 Al Hydrox/Mg Hydrox/Simethicone (Aluminum/Magnesium Susp 30 Ml Udc) 30 ml PO Q4H PRN PRN Reason: GI Upset Stop: 04/16/22 12:17 Atenolol (Atenolol 25 Mg Tablet) [facility] Stop: 04/13/22 08:59 Last Admin: 03/24/22 08:54 Dose: 25 mg Atorvastatin Calcium (Atorvastatin 40 Mg Tab) 40 [facility] Stop: 04/13/22 08:59 Last Admin: 03/24/22 08:54 Dose: 40 mg Bismuth Subsalicylate (Bismuth Subsalicylate Liqd 236 Ml) 15 ml PO PRN PRN PRN Reason: Loose Stool Stop: 04/16/22 12:17 Folic Acid (Folic Acid 1 Mg Tab) 1 [facility] Stop: 04/15/22 12:44 Last Admin: 03/24/22 08:54 Dose: 1 mg Hydroxyzine HCl (Hydroxyzine Hcl 25 Mg Tab) 50 mg PO HSZ PRN PRN Reason: Insomnia Stop: 04/16/22 12:17 Hydroxyzine HCl (Hydroxyzine Hcl 25 Mg Tab) 25 mg PO Q4H PRN PRN Reason: Anxiety Stop: 04/16/22 12:17 Lorazepam (Lorazepam 1 Mg Tab) 1 mg PO BIDM [facility] Stop: 04/23/22 17:44 Magnesium Hydroxide (Magnesium Hydroxide Susp 30 Ml Udc) 30 ml PO DAILY PRN PRN Reason: Constipation Stop: 04/16/22 12:17 Nicotine Polacrilex (Nicotine Polacrilex 2 Mg Gum) 1 piece MT PRN PRN PRN Reason: nicotine cravings Stop: 04/16/22 12:55 Last Admin: 03/23/22 15:35 Dose: 1 piece Olanzapine (Olanzapine 10 Mg/2.1 Ml Sdv) 5 mg IM DAILY PRN PRN Reason: Agitation Stop: 04/17/22 08:59 Quetiapine Fumarate (Quetiapine Fumarate 200 Mg Tab) 400 mg PO HS NIKKY Stop: 04/23/22 21:59 Risperidone (Risperidone 0.5 Mg Tablet) 0.5 mg PO BID PRN PRN Reason: Anxiety/Agitation Stop: 04/16/22 20:59 Last Admin: 03/24/22 00:41 Dose: 0.5 mg Risperidone (Risperidone 0.5 Mg Tablet) 0.5 mg PO BID NIKKY Stop: 04/22/22 20:59 Last Admin: 03/24/22 08:54 Dose: 0.5 mg Sodium Chloride (Sodium Chloride 0.65% Na Soln 45 Ml ([place])) 1 - 2 sprays NA PRN PRN PRN Reason: Nasal Dryness/Congestion Stop: 04/16/22 12:17 Thiamine HCl (Thiamine Hcl 100 Mg Tab) 100 mg PO QAM NIKKY Stop: 04/15/22 12:44 Last Admin: 03/24/22 08:54 Dose: 100 mg Topiramate (Topiramate 50 Mg Tab) 50 mg PO BID NIKKY Stop: 04/13/22 08:59 Last Admin: 03/24/22 08:55 Dose: 50 mg
[2022-03-24] MEDS: LORazepam 1 MG TAB PO SCH (17:18)
[2022-03-24] MEDS: QUEtiapine FUMARATE 200 MG TAB PO SCH (21:44)
[2022-03-25] MEDS: LORazepam 1 MG TAB PO SCH ×2 (09:27→17:20)
[2022-03-25] MEDS: ATENOLOL 25 MG TABLET PO SCH (09:28)
[2022-03-25] MEDS: FOLIC ACID 1 MG TAB PO SCH (09:28)
[2022-03-25] MEDS: ATORVASTATIN 40 MG TAB PO SCH (09:28)
[2022-03-25] MEDS: risperiDONE 0.5 MG TABLET PO SCH ×2 (09:29→21:18)
[2022-03-25] MEDS: TOPIRAMATE 50 MG TAB PO SCH ×2 (09:29→21:18)
[2022-03-25] MEDS: THIAMINE HCL 100 MG TAB PO SCH (09:29)
--- NOTE | 2022-03-25 14:44 | Psychiatric Progress Note ---
Date of Service March 25, 2022 Impression / Recommendations Impression 31 yo man with history of unspecified psychosis with recent decompensation including lack of po intake and sitting in same position for hours at a time and significant indecision in context of suspected months of non-adherence with psychiatric medications of seroquel and risperidone. Presentation concerning for catatonia and likely schizophrenia given multiple prior episodes of psychosis versus substance-induced psychosis but UDS negative with exception of alcohol. No signs for alcohol withdrawal or Wernicke's and not felt to require AWSS at this point, continuing thiamine and folic acid given poor po intake and recent weight loss. On 303 commitment since 03/18/2022. MNPR due to psychosis with significant paranoia and poor tolerance of peers. 03/25/22: still slowed, lacking insight. sleep better yet still poor. (1) Schizophrenia: (2) Catatonia: (3) Unspecified psychosis not due to a substance or known physiological condition: (4) Alcohol use: Plan 03/25/22: check on cost of SHEETS (perhaps Invega a better option as monthly), he is unwilling for additional medication changes today. family meeting given LOS and complex discharge planning. 03/24/22: resume Ativan 1 mg BID with meals for better coverage, resume Seroquel 400 mg hs with plan to titrate Risperidone. Patient does not want SHEETS. Referral to FEP program at [place]. 03/23/22: Continue with ativan 0.5mg TID. Decrease seroquel to 300mg qhs. Start risperidone 0.5mg BID. 03/22/22: Decrease ativan to 0.5mg TID. Continue with seroquel 400mg qhs. 03/21/22: Continue current medications and tx plan. 03/20/22: Continue current medications and tx plan. 03/19/22: Increase seroquel to 400mg qhs. 03/18/22: [facility] on q15 min checks (behavioral with suicide precautions) for safety. The patient will participate in group, recreational, and milieu therapies and will be offered additional individual and family sessions as clinically appropriate. -Increase to seroquel 300mg qhs -Ativan 1 mg TID for catatonia, intake is improving and moving more easily -Nicotine replacement gum -Schedule 303 commitment hearing given ongoing psychosis with poor intake and severely impaired insight and judgment as 302 commitment expires at 3am tomorrow -fasting lipid panel and glucose tomorrow morning Inventory Assets Strengths: supportive family, has housing, prior positive response to psychiatric treatment Needs: safety and stabilization, medication adjustment, additional coping skills, outpatient providers/resources Suicide Risk Level Suicide Risk Level: Low (q15 min observation checks) (denies SI and able to safety contract to alert nursing if he feels unsafe) Risk Factors Assessment Male: Yes : Yes Do You Have Access To A Gun?: No Mental Health Diagnoses: Yes Substance Use Disorders: Yes Previous Psychiatric Hospitalization: Yes Protective Factors Assessment Employed: Yes ([employer]) Supportive Family: Yes Interval History Identifying Information 31 yo man with history of alcohol use and unspecified psychosis previously on Seroquel and risperidone who presented to the ED for worsening po intake and now on 303 commitment. Chief Complaint "I just came here for IV fluids, you mean I won't be home for Thanksgiving?" Review of Systems Sleep Information Total Hours of Sleep: 4.5 Sleep Comments: Rested in bed throughout the night but noted to be awake frequently Meal Information Percent Meal Consumed - Breakfast: 0 Percent Meal Consumed - Lunch: 100 Percent Meal Consumed - Dinner: 100 Subjective Subjective Patient was seen & assessed and interval progress reviewed with nursing and social work. Did better on evening shift. continues to lack insight into need for medication and catatonia. He did express interest in going back to work at a [employer]. willing for med management with [facility], age may limit ability to participate in the young adult program at [place]. Re-reviewed last inpatient stay with dosing of Risperdal up to 3-4 mg in past. He did take SHEETS, reports it was "fine" but stopped as between brother[facility] in [place] and [facility], at some point he was without insurance and told it would cost $600. Physical Exam Psychiatric Orientation: alert Apperance: + disheveled Eye Contact: + poor eye contact Motor Behavior: no abnormal motor movements and + psychomotor retardation (still stands alone in his room at times but never for more than 30minutes ) Speech: + abnormal rate/rhythm/volume of speech (soft, mumbled at times but becoming more expansive) Affect: + flat affect Thought Process: + thought blocking (but lessening ) Thought Content: + paranoid Suicidal Thoughts: denies suicidal thoughts Homicidal Thoughts: denies homicidal thoughts Hallucinations: no auditory hallucinations and no visual hallucinations Cognition: language grossly intact; + attention not intact Vital Signs (Past 24 Hours) Last Vital Signs Temp 36.3 C L 03/25/22 06:00 Pulse 85 03/25/22 06:37 Resp 16 03/25/22 06:00 BP 106/73 03/25/22 06:37 Pulse Ox 97 03/25/22 06:00 O2 Del Method 03/25/22 06:00 Results & Data ([facility]) Laboratory Results Laboratory Results - last 24 hr 03/25/22 06:18 POC Glucose 92 Current Inpatient Medications Current Inpatient Medications: Current Inpatient Medications Acetaminophen (Acetaminophen 325 Mg Tab) 650 mg PO Q4H PRN PRN Reason: Headache or Minor Fever Stop: 04/16/22 12:17 Al Hydrox/Mg Hydrox/Simethicone (Aluminum/Magnesium Susp 30 Ml Udc) 30 ml PO Q4H PRN PRN Reason: GI Upset Stop: 04/16/22 12:17 Atenolol (Atenolol 25 Mg Tablet) 25 mg [facility] [place] [place] Stop: 04/13/22 08:59 Last Admin: 03/25/22 09:28 Dose: 25 mg Atorvastatin Calcium (Atorvastatin 40 Mg Tab) 40 mg [facility] [place] [place] Stop: 04/13/22 08:59 Last Admin: 03/25/22 09:28 Dose: 40 mg Bismuth Subsalicylate (Bismuth Subsalicylate Liqd 236 Ml) 15 ml PO PRN PRN PRN Reason: Loose Stool Stop: 04/16/22 12:17 Folic Acid (Folic Acid 1 Mg Tab) 1 mg [facility] [place] [place] Stop: 04/15/22 12:44 Last Admin: 03/25/22 09:28 Dose: 1 mg Hydroxyzine HCl (Hydroxyzine Hcl 25 Mg Tab) 50 mg PO HSZ PRN PRN Reason: Insomnia Stop: 04/16/22 12:17 Hydroxyzine HCl (Hydroxyzine Hcl 25 Mg Tab) 25 mg PO Q4H PRN PRN Reason: Anxiety Stop: 04/16/22 12:17 Lorazepam (Lorazepam 1 Mg Tab) 1 mg PO BIDM [facility] Stop: 04/23/22 17:44 Last Admin: 03/25/22 09:27 Dose: 1 mg Magnesium Hydroxide (Magnesium Hydroxide Susp 30 Ml Udc) 30 ml PO DAILY PRN PRN Reason: Constipation Stop: 04/16/22 12:17 Nicotine Polacrilex (Nicotine Polacrilex 2 Mg Gum) 1 piece MT PRN PRN PRN Reason: nicotine cravings Stop: 04/16/22 12:55 Last Admin: 03/23/22 15:35 Dose: 1 piece Olanzapine (Olanzapine 10 Mg/2.1 Ml Sdv) 5 mg IM DAILY PRN PRN Reason: Agitation Stop: 04/17/22 08:59 Quetiapine Fumarate (Quetiapine Fumarate 200 Mg Tab) 400 mg PO HS NIKKY Stop: 04/23/22 21:59 Last Admin: 03/24/22 21:44 Dose: 400 mg Risperidone (Risperidone 0.5 Mg Tablet) 0.5 mg PO BID PRN PRN Reason: Anxiety/Agitation Stop: 04/16/22 20:59 Last Admin: 03/24/22 00:41 Dose: 0.5 mg Risperidone (Risperidone 0.5 Mg Tablet) 0.5 mg PO BID NIKKY Stop: 04/22/22 20:59 Last Admin: 03/25/22 09:29 Dose: 0.5 mg Sodium Chloride (Sodium Chloride 0.65% Na Soln 45 Ml ([place])) 1 - 2 sprays NA PRN PRN PRN Reason: Nasal Dryness/Congestion Stop: 04/16/22 12:17 Thiamine HCl (Thiamine Hcl 100 Mg Tab) 100 mg PO QAM NIKKY Stop: 04/15/22 12:44 Last Admin: 03/25/22 09:29 Dose: 100 mg Topiramate (Topiramate 50 Mg Tab) 50 mg PO BID NIKKY Stop: 04/13/22 08:59 Last Admin: 03/25/22 09:29 Dose: 50 mg
[2022-03-25] MEDS: QUEtiapine FUMARATE 200 MG TAB PO SCH (21:18)
[2022-03-26] MEDS: FOLIC ACID 1 MG TAB PO SCH (08:29)
[2022-03-26] MEDS: ATORVASTATIN 40 MG TAB PO SCH (08:29)
[2022-03-26] MEDS: ATENOLOL 25 MG TABLET PO SCH (08:29)
[2022-03-26] MEDS: LORazepam 1 MG TAB PO SCH ×2 (08:30→17:15)
[2022-03-26] MEDS: risperiDONE 0.5 MG TABLET PO SCH (08:30)
[2022-03-26] MEDS: THIAMINE HCL 100 MG TAB PO SCH (08:30)
[2022-03-26] MEDS: TOPIRAMATE 50 MG TAB PO SCH ×2 (08:30→21:03)
--- NOTE | 2022-03-26 13:35 | Psychiatric Progress Note ---
Date of Service March 26, 2022 Impression / Recommendations Impression 31 yo man with history of unspecified psychosis with recent decompensation including lack of po intake and sitting in same position for hours at a time and significant indecision in context of suspected months of non-adherence with psychiatric medications of seroquel and risperidone. Presentation concerning for catatonia and likely schizophrenia given multiple prior episodes of psychosis versus substance-induced psychosis but UDS negative with exception of alcohol.On 303 commitment since 03/18/2022. Additional review of records shows early presentation/bipolar dx which was complicated by possible Ritalin misuse. Given all factors and progress feel schizoaffective disorder most appropriate at this time. MNPR due to psychosis with significant paranoia and poor tolerance of peers. 03/26/22: cooperation with discharge planning improving. (1) Catatonia: (2) Schizoaffective disorder: Plan 03/26/22: risks/benefits/alternatives reviewed as able to d/c Risperdal in favor of a trial of Invega. Will give 6 mg today as not sleeping well and patient tolerated 3 mg or more of Risperdal in the past with need to assess tolerability for loading with SHEETS prior to discharge. filed for 304 outpatient commitment. 03/25/22: check on cost of SHEETS (perhaps Invega a better option as monthly), he is unwilling for additional medication changes today. family meeting given LOS and complex discharge planning. 03/24/22: resume Ativan 1 mg BID with meals for better coverage, resume Seroquel 400 mg hs with plan to titrate Risperidone. Patient does not want SHEETS. Referral to FEP program at [place]. 03/23/22: Continue with ativan 0.5mg TID. Decrease seroquel to 300mg qhs. Start risperidone 0.5mg BID. 03/22/22: Decrease ativan to 0.5mg TID. Continue with seroquel 400mg qhs. 03/21/22: Continue current medications and tx plan. 03/20/22: Continue current medications and tx plan. 03/19/22: Increase seroquel to 400mg qhs. 03/18/22: The patient was admitted to the [facility] ([facility] mental health unit) on q15 min checks (behavioral with suicide precautions) for safety. The patient will participate in group, recreational, and milieu therapies and will be offered additional individual and family sessions as clinically appropriate. -Increase to seroquel 300mg qhs -Ativan 1 mg TID for catatonia, intake is improving and moving more easily -Nicotine replacement gum -Schedule 303 commitment hearing given ongoing psychosis with poor intake and severely impaired insight and judgment as 302 commitment expires at 3am tomorrow -fasting lipid panel and glucose tomorrow morning Inventory Assets Strengths: supportive family, has housing, prior positive response to psychiatric treatment Needs: safety and stabilization, medication adjustment, additional coping skills, outpatient providers/resources Suicide Risk Level Suicide Risk Level: Low (q15 min observation checks) (denies SI and able to safety contract to alert nursing if he feels unsafe) Risk Factors Assessment Male: Yes : Yes Do You Have Access To A Gun?: No Mental Health Diagnoses: Yes Substance Use Disorders: Yes Previous Psychiatric Hospitalization: Yes Protective Factors Assessment Employed: Yes ([employer]) Supportive Family: Yes Interval History Identifying Information 31 yo man with history of alcohol use and unspecified psychosis previously on Seroquel and risperidone who presented to the ED for worsening po intake and now on 303 commitment. Chief Complaint "I guess if that's what I have to do." Review of Systems Sleep Information Total Hours of Sleep: 3.5 Sleep Comments: Rested in bed throughout the night but noted to be awake frequently Meal Information Percent Meal Consumed - Breakfast: 0 Percent Meal Consumed - Lunch: 100 Percent Meal Consumed - Dinner: 90 Subjective Subjective Patient was seen & assessed and interval progress reviewed with treatment team. Patient has been eating, minimal pacing, more spontaneous in conversation. Still lacks insight into diagnosis and ability to care for self/his trailer after discharge. More willing to consider SHEETS and staying with family for a period of time following discharge. Physical Exam Psychiatric Orientation: alert Apperance: appropriately groomed Motor Behavior: no abnormal motor movements Speech: + abnormal rate/rhythm/volume of speech Affect: + blunted affect Mood: no depressed mood Thought Process: + concrete thought process Thought Content: reality based without delusions Suicidal Thoughts: denies suicidal thoughts Homicidal Thoughts: denies homicidal thoughts Hallucinations: no auditory hallucinations and no visual hallucinations Cognition: language grossly intact; + attention not intact Insight: + poor insight Judgement: + limited judgement Vital Signs (Past 24 Hours) Last Vital Signs Temp 36.3 C L 03/26/22 06:44 Pulse 70 03/26/22 06:45 Resp 18 03/26/22 06:44 BP 108/69 03/26/22 06:45 Pulse Ox 97 03/25/22 06:00 O2 Del Method 03/25/22 06:00 Results & Data ([facility]) Laboratory Results Laboratory Results - last 24 hr 03/26/22 08:36 POC Glucose 82 Current Inpatient Medications Current Inpatient Medications: Current Inpatient Medications Acetaminophen (Acetaminophen 325 Mg Tab) 650 mg PO Q4H PRN PRN Reason: Headache or Minor Fever Stop: 04/16/22 12:17 Al Hydrox/Mg Hydrox/Simethicone (Aluminum/Magnesium Susp 30 Ml Udc) 30 ml PO Q4H PRN PRN Reason: GI Upset Stop: 04/16/22 12:17 Atenolol (Atenolol 25 Mg Tablet) 25 mg [facility] [place] Stop: 04/13/22 08:59 Last Admin: 03/26/22 08:29 Dose: 25 mg Atorvastatin Calcium (Atorvastatin 40 Mg Tab) 40 mg PO [facility] [place] Stop: 04/13/22 08:59 Last Admin: 03/26/22 08:29 Dose: 40 mg Bismuth Subsalicylate (Bismuth Subsalicylate Liqd 236 Ml) 15 ml PO PRN PRN PRN Reason: Loose Stool Stop: 04/16/22 12:17 Folic Acid (Folic Acid 1 Mg Tab) 1 mg [facility] [place] Stop: 04/15/22 12:44 Last Admin: 03/26/22 08:29 Dose: 1 mg Hydroxyzine HCl (Hydroxyzine Hcl 25 Mg Tab) 50 mg PO HSZ PRN PRN Reason: Insomnia Stop: 04/16/22 12:17 Hydroxyzine HCl (Hydroxyzine Hcl 25 Mg Tab) 25 mg PO Q4H PRN PRN Reason: Anxiety Stop: 04/16/22 12:17 Lorazepam (Lorazepam 1 Mg Tab) 1 mg PO BIDM [facility] Stop: 04/23/22 17:44 Last Admin: 03/26/22 08:30 Dose: 1 mg Magnesium Hydroxide (Magnesium Hydroxide Susp 30 Ml Udc) 30 ml PO DAILY PRN PRN Reason: Constipation Stop: 04/16/22 12:17 Nicotine Polacrilex (Nicotine Polacrilex 2 Mg Gum) 1 piece MT PRN PRN PRN Reason: nicotine cravings Stop: 04/16/22 12:55 Last Admin: 03/23/22 15:35 Dose: 1 piece Olanzapine (Olanzapine 10 Mg/2.1 Ml Sdv) 5 mg IM DAILY PRN PRN Reason: Agitation Stop: 04/17/22 08:59 Paliperidone (Paliperidone 3 Mg Tabcr) 3 mg PO DAILYBD NIKKY Stop: 04/25/22 17:14 Quetiapine Fumarate (Quetiapine Fumarate 200 Mg Tab) 400 mg PO HS NIKKY Stop: 04/23/22 21:59 Last Admin: 03/25/22 21:18 Dose: 400 mg Sodium Chloride (Sodium Chloride 0.65% Na Soln 45 Ml ([place])) 1 - 2 sprays NA PRN PRN PRN Reason: Nasal Dryness/Congestion Stop: 04/16/22 12:17 Thiamine HCl (Thiamine Hcl 100 Mg Tab) 100 mg PO QAM NIKKY Stop: 04/15/22 12:44 Last Admin: 03/26/22 08:30 Dose: 100 mg Topiramate (Topiramate 50 Mg Tab) 50 mg PO BID NIKKY Stop: 04/13/22 08:59 Last Admin: 03/26/22 08:30 Dose: 50 mg
[2022-03-26] MEDS: PALIPERIDONE 3 MG TABCR PO SCH (17:15)
[2022-03-26] MEDS ORDERED: PALIPERIDONE 3 MG TABCR PO SCH (17:15)
[2022-03-26] MEDS: QUEtiapine FUMARATE 200 MG TAB PO SCH (21:03)
[2022-03-27] MEDS: TOPIRAMATE 50 MG TAB PO SCH ×2 (09:03→21:19)
[2022-03-27] MEDS: THIAMINE HCL 100 MG TAB PO SCH (09:03)
[2022-03-27] MEDS: ATENOLOL 25 MG TABLET PO SCH (09:03)
[2022-03-27] MEDS: ATORVASTATIN 40 MG TAB PO SCH (09:03)
[2022-03-27] MEDS: FOLIC ACID 1 MG TAB PO SCH (09:03)
[2022-03-27] MEDS: LORazepam 1 MG TAB PO SCH ×2 (09:04→17:22)
--- NOTE | 2022-03-27 12:19 | Psychiatric Progress Note ---
Date of Service March 27, 2022 Impression / Recommendations Impression 31 yo man with history of unspecified psychosis with recent decompensation including lack of po intake and sitting in same position for hours at a time and significant indecision in context of suspected months of non-adherence with psychiatric medications of seroquel and risperidone. Presentation concerning for catatonia and likely schizophrenia given multiple prior episodes of psychosis versus substance-induced psychosis but UDS negative with exception of alcohol.On 303 commitment since 03/18/2022. Additional review of records shows early presentation/bipolar dx which was complicated by possible Ritalin misuse. Given all factors and progress feel schizoaffective disorder most appropriate at this time. MNPR due to psychosis with significant paranoia and poor tolerance of peers. 03/27/22: improving, declined sleep aid (1) Catatonia: (2) Schizoaffective disorder: Plan 03/27/22: continue current meds and tx plan, injection Invega sustenna tomorrow, patient remains agreeable. He was resistant to case folder but did agree to have meeting rescheduled for 03/31/22. 03/26/22: risks/benefits/alternatives reviewed as able to d/c Risperdal in favor of a trial of Invega. Will give 6 mg today as not sleeping well and patient tolerated 3 mg or more of Risperdal in the past with need to assess tolerability for loading with SHEETS prior to discharge. filed for 304 outpatient commitment. 03/25/22: check on cost of SHEETS (perhaps Invega a better option as monthly), he is unwilling for additional medication changes today. family meeting given LOS and complex discharge planning. 03/24/22: resume Ativan 1 mg BID with meals for better coverage, resume Seroquel 400 mg hs with plan to titrate Risperidone. Patient does not want SHEETS. Referral to FEP program at [place]. 03/23/22: Continue with ativan 0.5mg TID. Decrease seroquel to 300mg qhs. Start risperidone 0.5mg BID. 03/22/22: Decrease ativan to 0.5mg TID. Continue with seroquel 400mg qhs. 03/21/22: Continue current medications and tx plan. 03/20/22: Continue current medications and tx plan. 03/19/22: Increase seroquel to 400mg qhs. 03/18/22: The patient was admitted to the [facility] ([facility] mental health unit) on q15 min checks (behavioral with suicide precautions) for safety. The patient will participate in group, recreational, and milieu therapies and will be offered additional individual and family sessions as clinically appropriate. -Increase to seroquel 300mg qhs -Ativan 1 mg TID for catatonia, intake is improving and moving more easily -Nicotine replacement gum -Schedule 303 commitment hearing given ongoing psychosis with poor intake and severely impaired insight and judgment as 302 commitment expires at 3am tomorrow -fasting lipid panel and glucose tomorrow morning Inventory Assets Strengths: supportive family, has housing, prior positive response to psychiatric treatment Needs: safety and stabilization, medication adjustment, additional coping skills, outpatient providers/resources Suicide Risk Level Suicide Risk Level: Low (q15 min observation checks) (denies SI and able to safety contract to alert nursing if he feels unsafe) Risk Factors Assessment Male: Yes : Yes Do You Have Access To A Gun?: No Mental Health Diagnoses: Yes Substance Use Disorders: Yes Previous Psychiatric Hospitalization: Yes Protective Factors Assessment Employed: Yes ([employer]) Supportive Family: Yes Interval History Identifying Information 31 yo man with history of alcohol use and unspecified psychosis previously on Seroquel and risperidone who presented to the ED for worsening po intake and now on 303 commitment. Chief Complaint "I guess I'm trying to understand what all of this is for." referring to his medications. Review of Systems Sleep Information Total Hours of Sleep: 6 Sleep Comments: Rested in bed throughout the night but noted to be awake frequently Meal Information Percent Meal Consumed - Breakfast: 0 Percent Meal Consumed - Lunch: 100 Percent Meal Consumed - Dinner: 100 Subjective Subjective Patient was seen & assessed and interval progress reviewed with nursing. The patient slept a bit better, he was rather flat/unsure as to the outcome of his family meeting. Reviewed the indication for his medications, psychiatric diagnosis. He has no change in restlessness since starting Invega, doesn't appear to have akathisia but will walk out of boredom. Physical Exam Vital Signs (Past 24 Hours) Last Vital Signs Temp 36.4 C L 03/27/22 06:42 Pulse 69 03/27/22 09:02 Resp 16 03/27/22 06:42 BP 131/71 03/27/22 06:42 Pulse Ox 97 03/25/22 06:00 O2 Del Method 03/25/22 06:00 Results & Data ([facility]) Laboratory Results Laboratory Results - last 24 hr 03/27/22 06:33 POC Glucose 87 Current Inpatient Medications Current Inpatient Medications: Current Inpatient Medications Acetaminophen (Acetaminophen 325 Mg Tab) 650 mg PO Q4H PRN PRN Reason: Headache or Minor Fever Stop: 04/16/22 12:17 Al Hydrox/Mg Hydrox/Simethicone (Aluminum/Magnesium Susp 30 Ml Udc) 30 ml PO Q4H PRN PRN Reason: GI Upset Stop: 04/16/22 12:17 Atenolol (Atenolol 25 Mg Tablet) 25 mg PO QAM [facility] Stop: 04/13/22 08:59 Last Admin: 03/27/22 09:03 Dose: 25 mg Atorvastatin Calcium (Atorvastatin 40 Mg Tab) 40 mg PO QAM [facility] Stop: 04/13/22 08:59 Last Admin: 03/27/22 09:03 Dose: 40 mg Bismuth Subsalicylate (Bismuth Subsalicylate Liqd 236 Ml) 15 ml PO PRN PRN PRN Reason: Loose Stool Stop: 04/16/22 12:17 Hydroxyzine HCl (Hydroxyzine Hcl 25 Mg Tab) 50 mg PO HSZ PRN PRN Reason: Insomnia Stop: 04/16/22 12:17 Hydroxyzine HCl (Hydroxyzine Hcl 25 Mg Tab) 25 mg PO Q4H PRN PRN Reason: Anxiety Stop: 04/16/22 12:17 Lorazepam (Lorazepam 1 Mg Tab) 1 mg PO BIDM [facility] Stop: 04/23/22 17:44 Last Admin: 03/27/22 09:04 Dose: 1 mg Magnesium Hydroxide (Magnesium Hydroxide Susp 30 Ml Udc) 30 ml PO DAILY PRN PRN Reason: Constipation Stop: 04/16/22 12:17 Nicotine Polacrilex (Nicotine Polacrilex 2 Mg Gum) 1 piece MT PRN PRN PRN Reason: nicotine cravings Stop: 04/16/22 12:55 Last Admin: 03/23/22 15:35 Dose: 1 piece Olanzapine (Olanzapine 10 Mg/2.1 Ml Sdv) 5 mg IM DAILY PRN PRN Reason: Agitation Stop: 04/17/22 08:59 Paliperidone (Paliperidone 3 Mg Tabcr) 6 mg PO DAILYBD NIKKY Stop: 04/25/22 17:14 Last Admin: 03/26/22 17:15 Dose: 6 mg Quetiapine Fumarate (Quetiapine Fumarate 200 Mg Tab) 400 mg PO HS NIKKY Stop: 04/23/22 21:59 Last Admin: 03/26/22 21:03 Dose: 400 mg Sodium Chloride (Sodium Chloride 0.65% Na Soln 45 Ml ([place])) 1 - 2 sprays NA PRN PRN PRN Reason: Nasal Dryness/Congestion Stop: 04/16/22 12:17 Topiramate (Topiramate 50 Mg Tab) 50 mg PO BID NIKKY Stop: 04/13/22 08:59 Last Admin: 03/27/22 09:03 Dose: 50 mg
[2022-03-27] MEDS: PALIPERIDONE 3 MG TABCR PO SCH (17:22)
[2022-03-27] MEDS: QUEtiapine FUMARATE 200 MG TAB PO SCH (21:19)
[2022-03-28] MEDS: ATENOLOL 25 MG TABLET PO SCH ×2 (10:30→10:55)
[2022-03-28] MEDS ORDERED: PALIPERIDONE PALMITATE 234 MG/1.5 ML SYR IM ONE ×2 (10:30→11:00)
[2022-03-28] MEDS: ATORVASTATIN 40 MG TAB PO SCH ×2 (10:31→10:55)
[2022-03-28] MEDS: TOPIRAMATE 50 MG TAB PO SCH ×3 (10:31→21:20)
--- NOTE | 2022-03-28 13:28 | Psychiatric Progress Note ---
Date of Service March 28, 2022 Impression / Recommendations Impression 31 yo man with history of unspecified psychosis with recent decompensation including lack of po intake and sitting in same position for hours at a time and significant indecision in context of suspected months of non-adherence with psychiatric medications of seroquel and risperidone. Presentation concerning for catatonia and likely schizophrenia given multiple prior episodes of psychosis versus substance-induced psychosis but UDS negative with exception of alcohol.On 303 commitment since 03/18/2022. Additional review of records shows early presentation/bipolar dx which was complicated by possible Ritalin misuse. Given all factors and progress feel schizoaffective disorder most appropriate at this time. MNPR due to psychosis with significant paranoia and poor tolerance of peers. 03/28/22: pattern of regression, he does appear sedated, doesn't seem necessarily worse with Invega. He desires to continue to limit number of pills. (1) Catatonia: (2) Schizoaffective disorder: Plan 03/28/22: decrease Ativan to 0.5 mg BID to taper with hope to discontinue prior to discharge. Seroquel doesn't necessarily seem to help sleep and may be contributing to am sedation so will taper to 200 mg tonight as trial, particularly as receiving Invega sustenna loading dose with plan for Invega 3 mg daily until 2nd injection. 03/27/22: continue current meds and tx plan, injection Invega sustenna tomorrow, patient remains agreeable. He was resistant to pillowcase maker but did agree to have meeting rescheduled for 03/31/22. 03/26/22: risks/benefits/alternatives reviewed as able to d/c Risperdal in favor of a trial of Invega. Will give 6 mg today as not sleeping well and patient tolerated 3 mg or more of Risperdal in the past with need to assess tolerability for loading with SHEETS prior to discharge. filed for 304 outpatient commitment. 03/25/22: check on cost of SHEETS (perhaps Invega a better option as monthly), he is unwilling for additional medication changes today. family meeting given LOS and complex discharge planning. 03/24/22: resume Ativan 1 mg BID with meals for better coverage, resume Seroquel 400 mg hs with plan to titrate Risperidone. Patient does not want SHEETS. Referral to FEP program at [place]. 03/23/22: Continue with ativan 0.5mg TID. Decrease seroquel to 300mg qhs. Start risperidone 0.5mg BID. 03/22/22: Decrease ativan to 0.5mg TID. Continue with seroquel 400mg qhs. 03/21/22: Continue current medications and tx plan. 03/20/22: Continue current medications and tx plan. 03/19/22: Increase seroquel to 400mg qhs. 03/18/22: [facility] on q15 min checks (behavioral with suicide precautions) for safety. The patient will participate in group, recreational, and milieu therapies and will be offered additional individual and family sessions as clinically appropriate. -Increase to seroquel 300mg qhs -Ativan 1 mg TID for catatonia, intake is improving and moving more easily -Nicotine replacement gum -Schedule 303 commitment hearing given ongoing psychosis with poor intake and severely impaired insight and judgment as 302 commitment expires at 3am tomorrow -fasting lipid panel and glucose tomorrow morning Inventory Assets Strengths: supportive family, has housing, prior positive response to psychiatric treatment Needs: safety and stabilization, medication adjustment, additional coping skills, outpatient providers/resources Suicide Risk Level Suicide Risk Level: Low (q15 min observation checks) (denies SI and able to safety contract to alert nursing if he feels unsafe) Risk Factors Assessment Male: Yes : Yes Do You Have Access To A Gun?: No Mental Health Diagnoses: Yes Substance Use Disorders: Yes Previous Psychiatric Hospitalization: Yes Protective Factors Assessment Employed: Yes ([employer]) Supportive Family: Yes Interval History Identifying Information 31 yo man with history of alcohol use and unspecified psychosis previously on Seroquel and risperidone who presented to the ED for worsening po intake and now on 303 commitment. Chief Complaint "I guess I'm fine." Review of Systems Sleep Information Total Hours of Sleep: 6.25 Sleep Comments: Rested in bed throughout the night but noted to be awake frequently Meal Information Percent Meal Consumed - Breakfast: 0 Percent Meal Consumed - Lunch: 25 Percent Meal Consumed - Dinner: 20 Subjective Subjective Patient was seen & assessed and interval progress reviewed with nursing. Patient was tired this am after sleeping >6 hrs and less interactive. He did attend community meeting with encouragement. No med complaints but remains suspicious re: number of pills. Physical Exam Psychiatric Orientation: + not alert Apperance: + disheveled Eye Contact: + poor eye contact Motor Behavior: no abnormal motor movements Speech: + abnormal rate/rhythm/volume of speech Affect: + flat affect Mood: + irritable mood Thought Process: + concrete thought process Thought Content: no delusions Suicidal Thoughts: denies suicidal thoughts Homicidal Thoughts: denies homicidal thoughts Hallucinations: no auditory hallucinations and no visual hallucinations Cognition: language grossly intact; + attention not intact Insight: + poor insight Judgement: + limited judgement Vital Signs (Past 24 Hours) Last Vital Signs Temp 36.5 C 03/27/22 20:28 Pulse 84 03/28/22 10:25 Resp 18 03/28/22 06:29 BP 127/80 03/28/22 06:29 Pulse Ox 97 03/25/22 06:00 O2 Del Method 03/25/22 06:00 Results & Data ([facility]) Laboratory Results Laboratory Results - last 24 hr 03/28/22 06:17 POC Glucose 72 Current Inpatient Medications Current Inpatient Medications: Current Inpatient Medications Acetaminophen (Acetaminophen 325 Mg Tab) 650 mg PO Q4H PRN PRN Reason: Headache or Minor Fever Stop: 04/16/22 12:17 Al Hydrox/Mg Hydrox/Simethicone (Aluminum/Magnesium Susp 30 Ml Udc) 30 ml PO Q4H PRN PRN Reason: GI Upset Stop: 04/16/22 12:17 Atenolol (Atenolol 25 Mg Tablet) 25 mg PO QAM [facility] Stop: 04/13/22 08:59 Last Admin: 03/28/22 10:55 Dose: 25 mg Atorvastatin Calcium (Atorvastatin 40 Mg Tab) 40 mg PO QAM NIKKY Stop: 04/13/22 08:59 Last Admin: 03/28/22 10:55 Dose: 40 mg Bismuth Subsalicylate (Bismuth Subsalicylate Liqd 236 Ml) 15 ml PO PRN PRN PRN Reason: Loose Stool Stop: 04/16/22 12:17 Hydroxyzine HCl (Hydroxyzine Hcl 25 Mg Tab) 50 mg PO HSZ PRN PRN Reason: Insomnia Stop: 04/16/22 12:17 Hydroxyzine HCl (Hydroxyzine Hcl 25 Mg Tab) 25 mg PO Q4H PRN PRN Reason: Anxiety Stop: 04/16/22 12:17 Lorazepam (Lorazepam 0.5 Mg Tab) 0.5 mg PO BIDM NIKKY Stop: 04/27/22 17:44 Magnesium Hydroxide (Magnesium Hydroxide Susp 30 Ml Udc) 30 ml PO DAILY PRN PRN Reason: Constipation Stop: 04/16/22 12:17 Nicotine Polacrilex (Nicotine Polacrilex 2 Mg Gum) 1 piece MT PRN PRN PRN Reason: nicotine cravings Stop: 04/16/22 12:55 Last Admin: 03/23/22 15:35 Dose: 1 piece Olanzapine (Olanzapine 10 Mg/2.1 Ml Sdv) 5 mg IM DAILY PRN PRN Reason: Agitation Stop: 04/17/22 08:59 Paliperidone (Paliperidone 3 Mg Tabcr) 3 mg PO DAILYBD NIKKY Stop: 04/27/22 17:14 Quetiapine Fumarate (Quetiapine Fumarate 200 Mg Tab) 200 mg PO HS NIKKY Stop: 04/27/22 21:59 Sodium Chloride (Sodium Chloride 0.65% Na Soln 45 Ml ([place])) 1 - 2 sprays NA PRN PRN PRN Reason: Nasal Dryness/Congestion Stop: 04/16/22 12:17 Topiramate (Topiramate 50 Mg Tab) 50 mg PO BID NIKKY Stop: 04/13/22 08:59 Last Admin: 03/28/22 10:55 Dose: 50 mg
[2022-03-28] MEDS: LORazepam 1 MG TAB PO SCH (15:20)
[2022-03-28] MEDS: PALIPERIDONE 3 MG TABCR PO SCH (17:27)
[2022-03-28] MEDS: LORazepam 0.5 MG TAB PO SCH (17:27)
[2022-03-28] MEDS ORDERED: QUEtiapine FUMARATE 200 MG TAB PO SCH (22:00)
[2022-03-29] MEDS: TOPIRAMATE 50 MG TAB PO SCH ×2 (09:02→22:03)
[2022-03-29] MEDS: LORazepam 0.5 MG TAB PO SCH (09:02)
[2022-03-29] MEDS: ATENOLOL 25 MG TABLET PO SCH (09:02)
[2022-03-29] MEDS: ATORVASTATIN 40 MG TAB PO SCH (09:02)
[2022-03-29] MEDS ORDERED: LORazepam 1 MG TAB PO PRN (15:27)
--- NOTE | 2022-03-29 15:34 | Psychiatric Progress Note ---
Date of Service March 29, 2022 Impression / Recommendations Impression 31 yo man with history of unspecified psychosis with recent decompensation including lack of po intake and sitting in same position for hours at a time and significant indecision in context of suspected months of non-adherence with psychiatric medications of seroquel and risperidone. Presentation concerning for catatonia and likely schizophrenia given multiple prior episodes of psychosis versus substance-induced psychosis but UDS negative with exception of alcohol.On 303 commitment since 03/18/2022. Additional review of records shows early presentation/bipolar dx which was complicated by possible Ritalin misuse. Given all factors and progress feel schizoaffective disorder most appropriate at this time. MNPR due to psychosis with significant paranoia and poor tolerance of peers. 03/29/22: appears increasingly restless as bored and avoiding newer co-patients (1) Catatonia: (2) Schizoaffective disorder: Plan 03/29/22: patient appears to have done best on Ativan 1 mg BID, he will likely self taper after discharge. Sleep unchanged on lower dose of Seroquel. Monitor for akathisia (he is alreadly on beta [place] for HTN). 03/28/22: decrease Ativan to 0.5 mg BID to taper with hope to discontinue prior to discharge. Seroquel doesn't necessarily seem to help sleep and may be contributing to am sedation so will taper to 200 mg tonight as trial, particularly as receiving Invega sustenna loading dose with plan for Invega 3 mg daily until 2nd injection. 03/27/22: continue current meds and tx plan, injection Invega sustenna tomorrow, patient remains agreeable. He was resistant to major case detective but did agree to have meeting rescheduled for 03/31/22. 03/26/22: risks/benefits/alternatives reviewed as able to d/c Risperdal in favor of a trial of Invega. Will give 6 mg today as not sleeping well and patient tolerated 3 mg or more of Risperdal in the past with need to assess tolerability for loading with SHEETS prior to discharge. filed for 304 outpatient commitment. 03/25/22: check on cost of SHEETS (perhaps Invega a better option as monthly), he is unwilling for additional medication changes today. family meeting given LOS and complex discharge planning. 03/24/22: resume Ativan 1 mg BID with meals for better coverage, resume Seroquel 400 mg hs with plan to titrate Risperidone. Patient does not want SHEETS. Referral to FEP program at [place]. 03/23/22: Continue with ativan 0.5mg TID. Decrease seroquel to 300mg qhs. Start risperidone 0.5mg BID. 03/22/22: Decrease ativan to 0.5mg TID. Continue with seroquel 400mg qhs. 03/21/22: Continue current medications and tx plan. 03/20/22: Continue current medications and tx plan. 03/19/22: Increase seroquel to 400mg qhs. 03/18/22: The patient was admitted to the [facility] ([facility] mental health unit) on q15 min checks (behavioral with suicide precautions) for safety. The patient will participate in group, recreational, and milieu therapies and will be offered additional individual and family sessions as clinically appropriate. -Increase to seroquel 300mg qhs -Ativan 1 mg TID for catatonia, intake is improving and moving more easily -Nicotine replacement gum -Schedule 303 commitment hearing given ongoing psychosis with poor intake and severely impaired insight and judgment as 302 commitment expires at 3am tomorrow -fasting lipid panel and glucose tomorrow morning Inventory Assets Strengths: supportive family, has housing, prior positive response to psychiatric treatment Needs: safety and stabilization, medication adjustment, additional coping skills, outpatient providers/resources Suicide Risk Level Suicide Risk Level: Low (q15 min observation checks) (denies SI and able to safety contract to alert nursing if he feels unsafe) Risk Factors Assessment Male: Yes : Yes Do You Have Access To A Gun?: No Mental Health Diagnoses: Yes Substance Use Disorders: Yes Previous Psychiatric Hospitalization: Yes Protective Factors Assessment Employed: Yes ([employer]) Supportive Family: Yes Interval History Identifying Information 31 yo man with history of alcohol use and unspecified psychosis previously on Seroquel and risperidone who presented to the ED for worsening po intake and now on 303 commitment. Chief Complaint c/o mild headache Review of Systems Sleep Information Total Hours of Sleep: 6.25 Sleep Comments: Rested in bed throughout the night but noted to be awake frequently Meal Information Percent Meal Consumed - Breakfast: 0 Percent Meal Consumed - Lunch: 25 Percent Meal Consumed - Dinner: 25 Subjective Subjective Patient was seen & assessed and interval progress reviewed with nursing and social work. Seems more preoccupied today, in his room pacing, denies akathisia but perhaps overstimulated by copatients. Suspicious with regards to his PO medications, took with much encouragement, later declining additional prn Ativan. rated mood as 4.5/10, refused to shower. Physical Exam Psychiatric Orientation: alert Apperance: appropriately groomed Eye Contact: + fair eye contact Motor Behavior: n akathisia Speech: + abnormal rate/rhythm/volume of speech (nonspontaneous) Affect: + constricted affect Mood: no depressed mood Thought Process: + concrete thought process Thought Content: reality based without delusions Suicidal Thoughts: denies suicidal thoughts Homicidal Thoughts: denies homicidal thoughts Hallucinations: no auditory hallucinations and no visual hallucinations Cognition: language grossly intact Insight: + limited insight Judgement: + limited judgement Vital Signs (Past 24 Hours) Last Vital Signs Temp 36.5 C 03/29/22 06:52 Pulse 84 03/29/22 09:00 Resp 18 03/29/22 06:50 BP 111/76 03/29/22 09:00 Pulse Ox 97 03/25/22 06:00 O2 Del Method 03/25/22 06:00 Results & Data ([facility]) Laboratory Results Laboratory Results - last 24 hr 03/29/22 06:59 POC Glucose 99 Current Inpatient Medications Current Inpatient Medications: Current Inpatient Medications Acetaminophen (Acetaminophen 325 Mg Tab) 650 mg PO Q4H PRN PRN Reason: Headache or Minor Fever Stop: 04/16/22 12:17 Al Hydrox/Mg Hydrox/Simethicone (Aluminum/Magnesium Susp 30 Ml Udc) 30 ml PO Q4H PRN PRN Reason: GI Upset Stop: 04/16/22 12:17 Atenolol (Atenolol 25 Mg Tablet) 25 mg PO QAM NIKKY Stop: 04/13/22 08:59 Last Admin: 03/29/22 09:02 Dose: 25 mg Atorvastatin Calcium (Atorvastatin 40 Mg Tab) 40 mg PO QAM NIKKY Stop: 04/13/22 08:59 Last Admin: 03/29/22 09:02 Dose: 40 mg Bismuth Subsalicylate (Bismuth Subsalicylate Liqd 236 Ml) 15 ml PO PRN PRN PRN Reason: Loose Stool Stop: 04/16/22 12:17 Hydroxyzine HCl (Hydroxyzine Hcl 25 Mg Tab) 50 mg PO HSZ PRN PRN Reason: Insomnia Stop: 04/16/22 12:17 Lorazepam (Lorazepam 1 Mg Tab) 1 mg PO BIDM NIKKY Stop: 04/28/22 17:44 Magnesium Hydroxide (Magnesium Hydroxide Susp 30 Ml Udc) 30 ml PO DAILY PRN PRN Reason: Constipation Stop: 04/16/22 12:17 Nicotine Polacrilex (Nicotine Polacrilex 2 Mg Gum) 1 piece MT PRN PRN PRN Reason: nicotine cravings Stop: 04/16/22 12:55 Last Admin: 03/23/22 15:35 Dose: 1 piece Olanzapine (Olanzapine 10 Mg/2.1 Ml Sdv) 5 mg IM DAILY PRN PRN Reason: Agitation Stop: 04/17/22 08:59 Paliperidone (Paliperidone 3 Mg Tabcr) 3 mg PO DAILYBD NIKKY Stop: 04/27/22 17:14 Last Admin: 03/28/22 17:27 Dose: 3 mg Quetiapine Fumarate (Quetiapine Fumarate 200 Mg Tab) 200 mg PO HS NIKKY Stop: 04/27/22 21:59 Last Admin: 03/28/22 21:20 Dose: 200 mg Sodium Chloride (Sodium Chloride 0.65% Na Soln 45 Ml ([place])) 1 - 2 sprays NA PRN PRN PRN Reason: Nasal Dryness/Congestion Stop: 04/16/22 12:17 Topiramate (Topiramate 50 Mg Tab) 50 mg PO BID NIKKY Stop: 04/13/22 08:59 Last Admin: 03/29/22 09:02 Dose: 50 mg
[2022-03-29] MEDS: PALIPERIDONE 3 MG TABCR PO SCH (17:21)
[2022-03-29] MEDS: LORazepam 1 MG TAB PO SCH ×2 (17:23→22:09)
[2022-03-29] MEDS: QUEtiapine FUMARATE 200 MG TAB PO SCH (22:02)
[2022-03-30] MEDS: TOPIRAMATE 50 MG TAB PO SCH ×2 (12:19→21:24)
[2022-03-30] MEDS: ATENOLOL 25 MG TABLET PO SCH (12:19)
[2022-03-30] MEDS: ATORVASTATIN 40 MG TAB PO SCH (12:19)
--- NOTE | 2022-03-30 15:52 | Psychiatric Progress Note ---
Date of Service March 30, 2022 Impression / Recommendations Impression 31 yo man with history of unspecified psychosis with recent decompensation including lack of po intake and sitting in same position for hours at a time and significant indecision in context of suspected months of non-adherence with psychiatric medications of seroquel and risperidone. Presentation concerning for catatonia and likely schizophrenia given multiple prior episodes of psychosis versus substance-induced psychosis but UDS negative with exception of alcohol.On 303 commitment since 03/18/2022. Additional review of records shows early presentation/bipolar dx which was complicated by possible Ritalin misuse. Given all factors and progress feel schizoaffective disorder most appropriate at this time. MNPR due to psychosis with significant paranoia and poor tolerance of peers. 03/30/22: variable PO intake, poor commitment to take medications. (1) Catatonia: (2) Schizoaffective disorder: Plan 03/30/22: will hold on writing for next dose Invegga sustenna until can reassess for potential side effects tomorrow. Failed Ativan and Seroquel taper attempts. 304 hearing in am. 03/29/22: patient appears to have done best on Ativan 1 mg BID, he will likely self taper after discharge. Sleep unchanged on lower dose of Seroquel. Monitor for akathisia (he is alreadly on beta everton for HTN). 03/28/22: decrease Ativan to 0.5 mg BID to taper with hope to discontinue prior to discharge. Seroquel doesn't necessarily seem to help sleep and may be contributing to am sedation so will taper to 200 mg tonight as trial, particularly as receiving Invega sustenna loading dose with plan for Invega 3 mg daily until 2nd injection. 03/27/22: continue current meds and tx plan, injection Invega sustenna tomorrow, patient remains agreeable. He was resistant to field nurse case manager but did agree to have meeting rescheduled for 03/31/22. 03/26/22: risks/benefits/alternatives reviewed as able to d/c Risperdal in favor of a trial of Invega. Will give 6 mg today as not sleeping well and patient tolerated 3 mg or more of Risperdal in the past with need to assess tolerability for loading with SHEETS prior to discharge. filed for 304 outpatient commitment. 03/25/22: check on cost of SHEETS (perhaps Invega a better option as monthly), he is unwilling for additional medication changes today. family meeting given LOS and complex discharge planning. 03/24/22: resume Ativan 1 mg BID with meals for better coverage, resume Seroquel 400 mg hs with plan to titrate Risperidone. Patient does not want SHEETS. Referral to FEP program at [place]. 03/23/22: Continue with ativan 0.5mg TID. Decrease seroquel to 300mg qhs. Start risperidone 0.5mg BID. 03/22/22: Decrease ativan to 0.5mg TID. Continue with seroquel 400mg qhs. 03/21/22: Continue current medications and tx plan. 03/20/22: Continue current medications and tx plan. 03/19/22: Increase seroquel to 400mg qhs. 03/18/22: The patient was admitted to the [facility] ([facility] mental health unit) on q15 min checks (behavioral with suicide precautions) for safety. The patient will participate in group, recreational, and milieu therapies and will be offered additional individual and family sessions as clinically appropriate. -Increase to seroquel 300mg qhs -Ativan 1 mg TID for catatonia, intake is improving and moving more easily -Nicotine replacement gum -Schedule 303 commitment hearing given ongoing psychosis with poor intake and severely impaired insight and judgment as 302 commitment expires at 3am tomorrow -fasting lipid panel and glucose tomorrow morning Inventory Assets Strengths: supportive family, has housing, prior positive response to psychiatric treatment Needs: safety and stabilization, medication adjustment, additional coping skills, outpatient providers/resources Suicide Risk Level Suicide Risk Level: Low (q15 min observation checks) (denies SI and able to safety contract to alert nursing if he feels unsafe) Risk Factors Assessment Male: Yes : Yes Do You Have Access To A Gun?: No Mental Health Diagnoses: Yes Substance Use Disorders: Yes Previous Psychiatric Hospitalization: Yes Protective Factors Assessment Employed: Yes ([employer]) Supportive Family: Yes Interval History Identifying Information 31 yo man with history of alcohol use and unspecified psychosis previously on Seroquel and risperidone who presented to the ED for worsening po intake and now on 303 commitment. Chief Complaint paranoid re: medications and food Review of Systems Sleep Information Total Hours of Sleep: 6.25 Meal Information Percent Meal Consumed - Breakfast: 0 Percent Meal Consumed - Lunch: 100 Percent Meal Consumed - Dinner: 0 Nutrition Comment: Sleeping Deeply Subjective Subjective Patient was seen & assessed and interval progress reviewed with nursing and social work. Patient spent most of the am sleeping, initially refused breakfast and lunch but ate hungrily mid afternoon. He remains focussed on discharge tomorrow and won't engage with nursing despite multiple attempts. That said, he did attend community meeting last pm. He was pacing throughout his room, sweaty at times. blood sugar 89 yesterday per staff when didn't eat. Physical Exam Psychiatric alert, pacing, no tremor appreciated, denies subjective restlessness. limited MSE as patient mostly in bed/refusing to awaken on multiple attempts. Vital Signs (Past 24 Hours) Last Vital Signs Temp 36.2 C L 03/30/22 12:16 Pulse 106 H 03/30/22 12:16 Resp 14 03/30/22 12:16 BP 103/71 03/30/22 12:16 Pulse Ox 99 03/30/22 12:16 O2 Del Method 03/25/22 06:00 Results & Data ([facility]) Laboratory Results Laboratory Results - last 24 hr 03/29/22 03/30/22 03/30/22 18:34 12:14 14:13 POC Glucose 89 76 92 Current Inpatient Medications Current Inpatient Medications: Current Inpatient Medications Acetaminophen (Acetaminophen 325 Mg Tab) 650 mg PO Q4H PRN PRN Reason: Headache or Minor Fever Stop: 04/16/22 12:17 Al Hydrox/Mg Hydrox/Simethicone (Aluminum/Magnesium Susp 30 Ml Udc) 30 ml PO Q4H PRN PRN Reason: GI Upset Stop: 04/16/22 12:17 Atenolol (Atenolol 25 Mg Tablet) 25 mg PO QAM NIKKY Stop: 04/13/22 08:59 Last Admin: 03/30/22 12:19 Dose: 25 mg Atorvastatin Calcium (Atorvastatin 40 Mg Tab) 40 mg PO QAM NIKKY Stop: 04/13/22 08:59 Last Admin: 03/30/22 12:19 Dose: 40 mg Bismuth Subsalicylate (Bismuth Subsalicylate Liqd 236 Ml) 15 ml PO PRN PRN PRN Reason: Loose Stool Stop: 04/16/22 12:17 Hydroxyzine HCl (Hydroxyzine Hcl 25 Mg Tab) 50 mg PO HSZ PRN PRN Reason: Insomnia Stop: 04/16/22 12:17 Lorazepam (Lorazepam 1 Mg Tab) 1 mg PO BIDM NIKKY Stop: 04/28/22 17:44 Last Admin: 03/29/22 22:09 Dose: 1 mg Lorazepam (Lorazepam 1 Mg Tab) 1 mg PO Q6 PRN PRN Reason: Anxiety Stop: 04/28/22 15:26 Magnesium Hydroxide (Magnesium Hydroxide Susp 30 Ml Udc) 30 ml PO DAILY PRN PRN Reason: Constipation Stop: 04/16/22 12:17 Nicotine Polacrilex (Nicotine Polacrilex 2 Mg Gum) 1 piece MT PRN PRN PRN Reason: nicotine cravings Stop: 04/16/22 12:55 Last Admin: 03/23/22 15:35 Dose: 1 piece Olanzapine (Olanzapine 10 Mg/2.1 Ml Sdv) 5 mg IM DAILY PRN PRN Reason: Agitation Stop: 04/17/22 08:59 Paliperidone (Paliperidone 3 Mg Tabcr) 3 mg PO DAILYBD NIKKY Stop: 04/27/22 17:14 Last Admin: 03/29/22 17:21 Dose: 3 mg Quetiapine Fumarate (Quetiapine Fumarate 200 Mg Tab) 400 mg PO HS NIKKY Stop: 04/28/22 21:59 Last Admin: 03/29/22 22:02 Dose: 400 mg Sodium Chloride (Sodium Chloride 0.65% Na Soln 45 Ml ([place])) 1 - 2 sprays NA PRN PRN PRN Reason: Nasal Dryness/Congestion Stop: 04/16/22 12:17 Topiramate (Topiramate 50 Mg Tab) 50 mg PO BID NIKKY Stop: 04/13/22 08:59 Last Admin: 03/30/22 12:19 Dose: 50 mg
[2022-03-30] MEDS: LORazepam 1 MG TAB PO SCH (17:58)
[2022-03-30] MEDS: PALIPERIDONE 3 MG TABCR PO SCH (17:58)
[2022-03-30] MEDS: QUEtiapine FUMARATE 200 MG TAB PO SCH (21:24)
[2022-03-31] MEDS: ATENOLOL 25 MG TABLET PO SCH (09:31)
[2022-03-31] MEDS: ATORVASTATIN 40 MG TAB PO SCH (09:32)
[2022-03-31] MEDS: TOPIRAMATE 50 MG TAB PO SCH ×2 (09:32→21:18)
[2022-03-31] MEDS: LORazepam 1 MG TAB PO SCH ×3 (09:34→17:27)
--- NOTE | 2022-03-31 10:39 | Psychiatric Progress Note ---
Date of Service March 31, 2022 Impression / Recommendations Impression 31 yo man with history of unspecified psychosis with recent decompensation including lack of po intake and sitting in same position for hours at a time and significant indecision in context of suspected months of non-adherence with psychiatric medications of seroquel and risperidone. Presentation concerning for catatonia and likely schizophrenia given multiple prior episodes of psychosis versus substance-induced psychosis but UDS negative with exception of alcohol.On 303 commitment since 03/18/2022. Additional review of records shows early presentation/bipolar dx which was complicated by possible Ritalin misuse. Given all factors and progress feel schizoaffective disorder most appropriate at this time. MNPR due to psychosis with significant paranoia and poor tolerance of peers. 03/31/22: Reviewed interim progress. Catatonia appears to be worsening vs paranoia/thought blocking/internal stimuli vs negative symptoms from antipsychotic side effects leading to poor po intake, isolation and lack of self-care . Increase ativan to help with possible catatonia. Attempts to taper seroquel for antipsychotic monotherapy have been unsuccessful so far. Will reduce dose slightly to 300mg qhs and continue with po Invega with goal of potential next Invega SHEETS in the next 1-2 days. Participated in 304 hearing for 30 minutes. (1) Catatonia: (2) Schizoaffective disorder: Plan 03/31/22: 304 inpatient commitment granted. Decrease seroquel to 300mg qhs. Increase ativan to 1mg TID. Continue with Invega 3mg qd. 03/30/22: will hold on writing for next dose Invegga sustenna until can reassess for potential side effects tomorrow. Failed Ativan and Seroquel taper attempts. 304 hearing in am. 03/29/22: patient appears to have done best on Ativan 1 mg BID, he will likely self taper after discharge. Sleep unchanged on lower dose of Seroquel. Monitor for akathisia (he is alreadly on beta everton for HTN). 03/28/22: decrease Ativan to 0.5 mg BID to taper with hope to discontinue prior to discharge. Seroquel doesn't necessarily seem to help sleep and may be contributing to am sedation so will taper to 200 mg tonight as trial, particularly as receiving Invega sustenna loading dose with plan for Invega 3 mg daily until 2nd injection. 03/27/22: continue current meds and tx plan, injection Invega sustenna tomorrow, patient remains agreeable. He was resistant to case assistant but did agree to have meeting rescheduled for 03/31/22. 03/26/22: risks/benefits/alternatives reviewed as able to d/c Risperdal in favor of a trial of Invega. Will give 6 mg today as not sleeping well and patient tolerated 3 mg or more of Risperdal in the past with need to assess tolerability for loading with SHEETS prior to discharge. filed for 304 outpatient commitment. 03/25/22: check on cost of SHEETS (perhaps Invega a better option as monthly), he is unwilling for additional medication changes today. family meeting given LOS and complex discharge planning. 03/24/22: resume Ativan 1 mg BID with meals for better coverage, resume Seroquel 400 mg hs with plan to titrate Risperidone. Patient does not want SHEETS. Referral to FEP program at [place]. 03/23/22: Continue with ativan 0.5mg TID. Decrease seroquel to 300mg qhs. Start risperidone 0.5mg BID. 03/22/22: Decrease ativan to 0.5mg TID. Continue with seroquel 400mg qhs. 03/21/22: Continue current medications and tx plan. 03/20/22: Continue current medications and tx plan. 03/19/22: Increase seroquel to 400mg qhs. 03/18/22: The patient was admitted to the [facility] ([facility] mental health unit) on q15 min checks (behavioral with suicide precautions) for safety. The patient will participate in group, recreational, and milieu therapies and will be offered additional individual and family sessions as clinically appropriate. -Increase to seroquel 300mg qhs -Ativan 1 mg TID for catatonia, intake is improving and moving more easily -Nicotine replacement gum -Schedule 303 commitment hearing given ongoing psychosis with poor intake and severely impaired insight and judgment as 302 commitment expires at 3am tomorrow -fasting lipid panel and glucose tomorrow morning Inventory Assets Strengths: supportive family, has housing, prior positive response to psychiatric treatment Needs: safety and stabilization, medication adjustment, additional coping skills, outpatient providers/resources Suicide Risk Level Suicide Risk Level: Low (q15 min observation checks) (denies SI and able to safety contract to alert nursing if he feels unsafe) Risk Factors Assessment Male: Yes : Yes Do You Have Access To A Gun?: No Mental Health Diagnoses: Yes Substance Use Disorders: Yes Previous Psychiatric Hospitalization: Yes Protective Factors Assessment Employed: Yes ([employer]) Supportive Family: Yes Interval History Identifying Information 31 yo man with history of alcohol use and unspecified psychosis previously on Seroquel and risperidone who presented to the ED for worsening po intake and now on 303 commitment. Chief Complaint "I was only here for IV fluids, I was never supposed to be admitted here". Review of Systems Sleep Information Total Hours of Sleep: 7.75 Sleep Comments: Rested in bed throughout the night but noted to be awake frequently Meal Information Percent Meal Consumed - Breakfast: 0 Percent Meal Consumed - Lunch: 100 Percent Meal Consumed - Dinner: 50 Nutrition Comment: Subjective Subjective Patient was seen & assessed and interval progress reviewed with treatment team nursing and social work. Decompensating in the last few days with more isolation to his room, less interactive with peers, less consistent po intake. Still has not showered. 304 inpatient commitment held today which he participated in briefly. Desires discharge home. Otherwise would not engage with me. Seen sitting in front of his lunch tray moving food items around but did not eat anything Physical Exam Psychiatric Orientation: alert and oriented x 3 Apperance: + disheveled Eye Contact: + poor eye contact Motor Behavior: steady gait and station and no abnormal motor movements Speech: + abnormal rate/rhythm/volume of speech (nonspontaneous) Affect: + blunted affect Thought Process: + thought blocking (but lessening ) and + concrete thought process Thought Content: reality based without delusions Suicidal Thoughts: denies suicidal thoughts Homicidal Thoughts: denies homicidal thoughts Hallucinations: no auditory hallucinations and no visual hallucinations Cognition: remote memory grossly intact and language grossly intact; + recent memory not intact and + attention not intact Insight: + poor insight Judgement: + limited judgement Vital Signs (Past 24 Hours) Last Vital Signs Temp 36.6 C 03/31/22 06:48 Pulse 96 H 03/31/22 06:49 Resp 18 03/31/22 06:48 BP 112/61 03/31/22 06:49 Pulse Ox 99 03/30/22 12:16 O2 Del Method 03/25/22 06:00 Results & Data ([facility]) Laboratory Results Laboratory Results - last 24 hr 03/30/22 03/30/22 03/31/22 12:14 14:13 06:37 POC Glucose 76 92 79 Current Inpatient Medications Current Inpatient Medications: Current Inpatient Medications Acetaminophen (Acetaminophen 325 Mg Tab) 650 mg PO Q4H PRN PRN Reason: Headache or Minor Fever Stop: 04/16/22 12:17 Al Hydrox/Mg Hydrox/Simethicone (Aluminum/Magnesium Susp 30 Ml Udc) 30 ml PO Q4H PRN PRN Reason: GI Upset Stop: 04/16/22 12:17 Atenolol (Atenolol 25 Mg Tablet) 25 mg PO QAM [facility] Stop: 04/13/22 08:59 Last Admin: 03/31/22 09:31 Dose: 25 mg Atorvastatin Calcium (Atorvastatin 40 Mg Tab) 40 mg PO QAM [facility] Stop: 04/13/22 08:59 Last Admin: 03/31/22 09:32 Dose: 40 mg Bismuth Subsalicylate (Bismuth Subsalicylate Liqd 236 Ml) 15 ml PO PRN PRN PRN Reason: Loose Stool Stop: 04/16/22 12:17 Hydroxyzine HCl (Hydroxyzine Hcl 25 Mg Tab) 50 mg PO HSZ PRN PRN Reason: Insomnia Stop: 04/16/22 12:17 Lorazepam (Lorazepam 1 Mg Tab) 1 mg PO BIDM NIKKY Stop: 04/28/22 17:44 Last Admin: 03/31/22 09:34 Dose: 1 mg Lorazepam (Lorazepam 1 Mg Tab) 1 mg PO Q6 PRN PRN Reason: Anxiety Stop: 04/28/22 15:26 Magnesium Hydroxide (Magnesium Hydroxide Susp 30 Ml Udc) 30 ml PO DAILY PRN PRN Reason: Constipation Stop: 04/16/22 12:17 Nicotine Polacrilex (Nicotine Polacrilex 2 Mg Gum) 1 piece MT PRN PRN PRN Reason: nicotine cravings Stop: 04/16/22 12:55 Last Admin: 03/23/22 15:35 Dose: 1 piece Olanzapine (Olanzapine 10 Mg/2.1 Ml Sdv) 5 mg IM DAILY PRN PRN Reason: Agitation Stop: 04/17/22 08:59 Paliperidone (Paliperidone 3 Mg Tabcr) 3 mg PO DAILYBD NIKKY Stop: 04/27/22 17:14 Last Admin: 03/30/22 17:58 Dose: 3 mg Quetiapine Fumarate (Quetiapine Fumarate 200 Mg Tab) 400 mg PO HS NIKKY Stop: 04/28/22 21:59 Last Admin: 03/30/22 21:24 Dose: 400 mg Sodium Chloride (Sodium Chloride 0.65% Na Soln 45 Ml ([place])) 1 - 2 sprays NA PRN PRN PRN Reason: Nasal Dryness/Congestion Stop: 04/16/22 12:17 Topiramate (Topiramate 50 Mg Tab) 50 mg PO BID NIKKY Stop: 04/13/22 08:59 Last Admin: 03/31/22 09:32 Dose: 50 mg
[2022-03-31] MEDS: PALIPERIDONE 3 MG TABCR PO SCH (17:27)
[2022-03-31] MEDS: QUEtiapine FUMARATE 300 MG TABLET PO SCH (21:18)
[2022-04-01] MEDS: LORazepam 1 MG TAB PO SCH ×3 (09:32→17:20)
[2022-04-01] MEDS: TOPIRAMATE 50 MG TAB PO SCH ×2 (09:32→21:02)
[2022-04-01] MEDS: ATORVASTATIN 40 MG TAB PO SCH (09:32)
[2022-04-01] MEDS: ATENOLOL 25 MG TABLET PO SCH (09:32)
[2022-04-01] MEDS: PALIPERIDONE 3 MG TABCR PO SCH (17:20)
--- NOTE | 2022-04-01 17:25 | Psychiatric Progress Note ---
Date of Service April 01, 2022 Impression / Recommendations Impression 31 yo man with history of unspecified psychosis with recent decompensation including lack of po intake and sitting in same position for hours at a time and significant indecision in context of suspected months of non-adherence with psychiatric medications of seroquel and risperidone. Presentation concerning for catatonia and likely schizophrenia given multiple prior episodes of psychosis versus substance-induced psychosis but UDS negative with exception of alcohol.On 303 commitment since 03/18/2022. Additional review of records shows early presentation/bipolar dx which was complicated by possible Ritalin misuse. Given all factors and progress feel schizoaffective disorder most appropriate at this time. MNPR due to psychosis with significant paranoia and poor tolerance of peers. 04/01/22: Significant improvement after increasing ativan back to TID dosing. Participating in groups, showered for the first time and eating his meals (especially lunch, snacks and dinner). Tolerating reduction of seroquel. Plan for Invega injection tomorrow morning. (1) Catatonia: (2) Schizoaffective disorder: Plan 04/01/22: Invega SHEETS tomorrow 03/31/22: 304 inpatient commitment granted. Decrease seroquel to 300mg qhs. Increase ativan to 1mg TID. Continue with Invega 3mg qd. 03/30/22: will hold on writing for next dose Invegga sustenna until can reassess for potential side effects tomorrow. Failed Ativan and Seroquel taper attempts. 304 hearing in am. 03/29/22: patient appears to have done best on Ativan 1 mg BID, he will likely self taper after discharge. Sleep unchanged on lower dose of Seroquel. Monitor for akathisia (he is alreadly on beta everton for HTN). 03/28/22: decrease Ativan to 0.5 mg BID to taper with hope to discontinue prior to discharge. Seroquel doesn't necessarily seem to help sleep and may be contributing to am sedation so will taper to 200 mg tonight as trial, particularly as receiving Invega sustenna loading dose with plan for Invega 3 mg daily until 2nd injection. 03/27/22: continue current meds and tx plan, injection Invega sustenna tomorrow, patient remains agreeable. He was resistant to special education case manager but did agree to have meeting rescheduled for 03/31/22. 03/26/22: risks/benefits/alternatives reviewed as able to d/c Risperdal in favor of a trial of Invega. Will give 6 mg today as not sleeping well and patient tolerated 3 mg or more of Risperdal in the past with need to assess tolerability for loading with SHEETS prior to discharge. filed for 304 outpatient commitment. 03/25/22: check on cost of SHEETS (perhaps Invega a better option as monthly), he is unwilling for additional medication changes today. family meeting given LOS and complex discharge planning. 03/24/22: resume Ativan 1 mg BID with meals for better coverage, resume Seroquel 400 mg hs with plan to titrate Risperidone. Patient does not want SHEETS. Referral to FEP program at [place]. 03/23/22: Continue with ativan 0.5mg TID. Decrease seroquel to 300mg qhs. Start risperidone 0.5mg BID. 03/22/22: Decrease ativan to 0.5mg TID. Continue with seroquel 400mg qhs. 03/21/22: Continue current medications and tx plan. 03/20/22: Continue current medications and tx plan. 03/19/22: Increase seroquel to 400mg qhs. 03/18/22: The patient was admitted to the [facility] ([facility]) on q15 min checks (behavioral with suicide precautions) for safety. The patient will participate in group, recreational, and milieu therapies and will be offered additional individual and family sessions as clinically appropriate. -Increase to seroquel 300mg qhs -Ativan 1 mg TID for catatonia, intake is improving and moving more easily -Nicotine replacement gum -Schedule 303 commitment hearing given ongoing psychosis with poor intake and severely impaired insight and judgment as 302 commitment expires at 3am tomorrow -fasting lipid panel and glucose tomorrow morning Inventory Assets Strengths: supportive family, has housing, prior positive response to psychiatric treatment Needs: safety and stabilization, medication adjustment, additional coping skills, outpatient providers/resources Suicide Risk Level Suicide Risk Level: Low (q15 min observation checks) (denies SI and able to safety contract to alert nursing if he feels unsafe) Risk Factors Assessment Male: Yes : Yes Do You Have Access To A Gun?: No Mental Health Diagnoses: Yes Substance Use Disorders: Yes Previous Psychiatric Hospitalization: Yes Protective Factors Assessment Employed: Yes ([employer]) Supportive Family: Yes Interval History Identifying Information 31 yo man with history of alcohol use and unspecified psychosis previously on Seroquel and risperidone who presented to the ED for worsening po intake and now on 304 commitment. Chief Complaint "I'm ok". Review of Systems Sleep Information Total Hours of Sleep: 6.5 Sleep Comments: Meal Information Percent Meal Consumed - Breakfast: 0 Percent Meal Consumed - Lunch: 100 Percent Meal Consumed - Dinner: 50 Nutrition Comment: pt. does not typically eat breakfast Subjective Subjective Patient was seen & assessed and interval progress reviewed with treatment team nursing and social work. Martín showered yesterday evening, ate his dinner, participated in groups and watched a movie with peers. Today came out with some encouragement for breakfast but then engaged in some groups, sat in the main room watching TV, met with his special education case manager for ~1 hour, and ate all his meals and snacks. He continues to vocalize his desire to discharge. Denies AH. Mood is stable. Slept well last night. Physical Exam Psychiatric Orientation: alert and oriented x 3 Apperance: appropriately dressed and appropriately groomed Eye Contact: + fair eye contact Motor Behavior: steady gait and station and no abnormal motor movements Affect: + flat affect Mood: no depressed mood Thought Process: + concrete thought process Thought Content: reality based without delusions Suicidal Thoughts: denies suicidal thoughts Homicidal Thoughts: denies homicidal thoughts Hallucinations: no auditory hallucinations and no visual hallucinations Cognition: language grossly intact Estimated Intelligence: consistent with education level Insight: + limited insight Judgement: + limited judgement Vital Signs (Past 24 Hours) Last Vital Signs Temp 36.9 C 04/01/22 06:45 Pulse 99 H 04/01/22 06:46 Resp 16 04/01/22 06:45 BP 122/78 04/01/22 06:46 Pulse Ox 99 03/30/22 12:16 O2 Del Method 03/25/22 06:00 Results & Data ([facility]) Laboratory Results Laboratory Results - last 24 hr 04/01/22 06:30 POC Glucose 122 H Current Inpatient Medications Current Inpatient Medications: Current Inpatient Medications Acetaminophen (Acetaminophen 325 Mg Tab) 650 mg PO Q4H PRN PRN Reason: Headache or Minor Fever Stop: 04/16/22 12:17 Al Hydrox/Mg Hydrox/Simethicone (Aluminum/Magnesium Susp 30 Ml Udc) 30 ml PO Q4H PRN PRN Reason: GI Upset Stop: 04/16/22 12:17 Atenolol (Atenolol 25 Mg Tablet) 25 mg PO QAM NIKKY Stop: 04/13/22 08:59 Last Admin: 04/01/22 09:32 Dose: 25 mg Atorvastatin Calcium (Atorvastatin 40 Mg Tab) 40 mg PO QAM NIKKY Stop: 04/13/22 08:59 Last Admin: 04/01/22 09:32 Dose: 40 mg Bismuth Subsalicylate (Bismuth Subsalicylate Liqd 236 Ml) 15 ml PO PRN PRN PRN Reason: Loose Stool Stop: 04/16/22 12:17 Hydroxyzine HCl (Hydroxyzine Hcl 25 Mg Tab) 50 mg PO HSZ PRN PRN Reason: Insomnia Stop: 04/16/22 12:17 Lorazepam (Lorazepam 1 Mg Tab) 1 mg PO Q6 PRN PRN Reason: Anxiety Stop: 04/28/22 15:26 Lorazepam (Lorazepam 1 Mg Tab) 1 mg PO TIDM NIKKY Stop: 04/30/22 12:59 Last Admin: 04/01/22 12:24 Dose: 1 mg Magnesium Hydroxide (Magnesium Hydroxide Susp 30 Ml Udc) 30 ml PO DAILY PRN PRN Reason: Constipation Stop: 04/16/22 12:17 Nicotine Polacrilex (Nicotine Polacrilex 2 Mg Gum) 1 piece MT PRN PRN PRN Reason: nicotine cravings Stop: 04/16/22 12:55 Last Admin: 03/23/22 15:35 Dose: 1 piece Olanzapine (Olanzapine 10 Mg/2.1 Ml Sdv) 5 mg IM DAILY PRN PRN Reason: Agitation Stop: 04/17/22 08:59 Paliperidone (Paliperidone 3 Mg Tabcr) 3 mg PO DAILYBD NIKKY Stop: 04/27/22 17:14 Last Admin: 03/31/22 17:27 Dose: 3 mg Quetiapine Fumarate (Quetiapine Fumarate 300 Mg Tablet) 300 mg PO HS NIKKY Stop: 04/30/22 21:59 Last Admin: 03/31/22 21:18 Dose: 300 mg Sodium Chloride (Sodium Chloride 0.65% Na Soln 45 Ml ([place])) 1 - 2 sprays NA PRN PRN PRN Reason: Nasal Dryness/Congestion Stop: 04/16/22 12:17 Topiramate (Topiramate 50 Mg Tab) 50 mg PO BID NIKKY Stop: 04/13/22 08:59 Last Admin: 04/01/22 09:32 Dose: 50 mg Mental Health & Subst Abuse Tx Psychiatrist Name of Psychiatrist: ORA GibsonC Psychiatrist's Date of Appointment with Psychiatrist: 04/07/22 Time of Appointment with Psychiatrist: 1:00pm Psychiatric Appointment Comment: [address] [place] [address] Cold Storage Superintendent Name of Cold Storage Superintendent: [facility] Phone Number for Cold Storage Superintendent: [phone] Case Management Appointment Comment: will follow up with you when d/c to schedul e reglar meetings Post Discharge Appointments Primary Care Physician Name Of Family Doctor: [facility] (will see Dr. Ambriz) Primary Care Date of Appointment with PCP: 04/03/22 Time of Appointment with PCP: 1:25 PM Provider Appointment Comment: [address], [place] [address] Contact Information Discharge Discharge Address: [address] [place] [id number]
[2022-04-01] MEDS: QUEtiapine FUMARATE 300 MG TABLET PO SCH (21:02)
[2022-04-02] MEDS: ATENOLOL 25 MG TABLET PO SCH (08:59)
[2022-04-02] MEDS: ATORVASTATIN 40 MG TAB PO SCH (08:59)
[2022-04-02] MEDS: TOPIRAMATE 50 MG TAB PO SCH (09:00)
[2022-04-02] MEDS: LORazepam 1 MG TAB PO SCH ×2 (09:00→11:41)
[2022-04-02] MEDS ORDERED: PALIPERIDONE PALMITATE 156 MG/ML SYR IM ONE ×2 (09:57→10:30)
--- NOTE | 2022-04-02 13:57 | Discharge Summary ---
Date of Service April 02, 2022 History of Present Illness Norbert was brought to the ED by his ex-firicardae after neighbors saw him pacing and speaking incoherently. He has a history of hospitalizations for unspecified psychosis vs schizophrenia and on arrival to the ED had an ethyl alcohol level of 95 mg/dl. Further recent history per my consult note on 03/15/2022 while he was in the ED: " Norbert is joined at bedside by his mother Tracy and he consents to her remaining present for our interview. He makes minimal eye contact and speaks softly and briefly so it is difficult to get any significant history from him. He states he is not eating due to lack of appetite and intermittent nausea denies any concerns about food being tampered with nor odd beliefs about food. Cannot tell me the last time he took seroquel or any psychiatric medications. Agrees that he is struggling to move around. On arrival to the ED on 03/13/22 he endorsed poor sleep and auditory hallucinations and possible visual hallucinations. His mother states he was not open with her about if he continued psychiatric me dication after his hospitalization last year but at that time was discharged on cogentin, risperidone 2mg qd and unknown strength of seroquel. She notes that prior to admission he would sit around not moving for hours and has been struggling to make any kind of decision about anything." Reviewed additional recent history per ED CM note from 03/13/22 with clarifications in bold: "Pt was brought to the ED by his ex-. She was contacted by pt's neighbors due to pt being outside the home pacing and talking nonsense. Pt's ex- states on the way to the hospital the pt was not making sense and asked her if he was a ghost. Pt's mother is present in the room when pt is seen and provides most information. Pt has lost approximately 80 lbs in the last 3-4 months due to not taking care of himself. Pt's mother states he has been hospitalized twice before, both were 302 commitments. Pt was most recently at [facility] in 2020. Pt states he was not eating or drinking so that he could prepare for a new job. When asked about what new job, the pt stated he was employed at [employer] as far as he knew, but did not clarify what we meant by preparing for a new job. The pt was on medications for mental health, but stopped taking them approximately 3 weeks ago due to "not needing them" (Per review of pharmacy records he has not filled any medications in over 6 months). It is unknown what medications the pt was on but his mother stated it was approximately 5 different medications. Pt reports hearing voices and seeing things that are not there. He stated "it depends" when asked what the voices are saying to him but he did stated that they sometimes tell him to harm himself. He does not do anything to harm himself and denies SI/HI. Pt states he has not slept in 7 days. He stated he may have had a few short naps, but no length of time for sleep." Today Norbert is moving around more easily but continues to struggle to engage with any back and forth conversation. He states "I don't remember" when asked if he was drinking any alcohol recently or what his recent use has been. Denies any recreational substance use except smoking cigarettes. Denies any recent stressors. He is unsure why he came to the ED but recalls his ex-fiancee brought him "because I was outside I guess". Eating a bit more since being admitting and start of ativan for presumed catatonia. [place] more tired this morning. Endorses intermittent auditory hallucinations stating the content is "neutral". Does not think he needs to remain in the hospital but cannot tell me where he would go or how he would care for his basic needs like eating. Physical Exam Vital Signs (Past 24 Hours) Last Vital Signs Temp 36.5 C 04/02/22 10:57 Pulse 106 H 04/02/22 10:57 Resp 16 04/02/22 10:57 BP 110/72 04/02/22 10:57 Pulse Ox 99 04/02/22 10:57 O2 Del Method 03/25/22 06:00 See admission H&P and DOD summary. Principal Diagnosis Schizoaffective disorder Psychiatric Data Norbert presented with significant catatonia, scoring consistently, on the Markham Guero catatonia scale and psychosis. Upon review of past presentations and his presentation during this admission his diagnosis was felt to be most consistent with schizoaffective disorder with catatonia. In short, safety was maintained and the patient was cooperative with care during his stay, see daily stay summary for more specific details. He was admitted on a 302 commitment and ultimately discharged on a 304 outpatient commitment given the severity of decompensation prior to admission and history of medication and treatment follow-up non-adherence. He responded very well to scheduled ativan and unfortunately symptoms of catatonia re-emerged when attempts were made to taper his dose so he was discharged on ativan 1mg TID po and would advise close monitoring with future taper attempts given concern for potential re-emergence of catatonia. He does have a history of alcohol use and he was counseled and expressed understanding of significant risks of using alcohol while on ativan including potential for fatal respiratory suppression. He also understands the need to use caution if driving or operating heavy machinery while on ativan. Other medication changes included initiation of seroquel for sleep and psychosis and attempts were also made to taper this prior to discharge with discharge dose of seroquel 300mg qhs and goal of ongoing taper to discontinuation in the outpatient setting. He was also given Invega Sustenna injections of 234mg on 03/28/22 and 156mg on 04/02/22 and he tolerated this well. He will be due for his next Invega Sustenna injection on approximately 05/02/2022. A family session was held and safety plan was completed prior to discharge. During the course of his admission his attention to hygiene improved, po intake improved significantly, and he became more social with peers including attending groups and watching movies together. He met with his new case monitor and spoke regularly with his mother and father. On day of discharge he reported his mood was "great", remained future-oriented, and plans to stay with his mother for at least some time before returning to his home in [place]. He agrees to follow-up with his new case monitor and scheduled appointment for psychiatry with Pauline. Day of Discharge Assessment Today the patient voices readiness for discharge. They note improvement in mood. They deny thoughts of harm to self or others. Thoughts are organized and they are clinically improved from admission. There is no evidence of psychosis. They improved in the hospital with support and medication adjustments. They agree to take medications as prescribed and keep follow-up appointments. At the time of t he discharge they are deemed to be stable and appropriate for outpatient level of care. They are not deemed to be at imminent risk of harm to self or others. They are aware of emergency and crisis services. Knows to call 911 or go to nearest emergency care center if in a crisis which cannot be handled as an outpatient. Transition of Care Transition Of Care Record: was reviewed with the patient Advance Directives Advance Directives Information Provided: Yes Advance Directives: No Mental Health Advance Directive: No Advance Directives on File: No Living Will: No Power of Manager Area: No Advance Directives Reason:: Declines as Mental Health Visit. Suicide Risk Level Suicide Risk Level Comments: Acute risk is low given improvement in mood and denial of SI, lack of access to lethal means, plan to avoid substance use, improvement in sleep, hopefulness and improvement in psychosis. Chronic risk is low to moderate given some non- modifiable risk factors: prior psychiatric hospitalizations, schizophrenia but also with protective factors including strong family support. Counseled on ways to reduce acute and chronic risk including engaging with outpatient providers, using safety plan if needed, utilizing supports, taking medication, and using coping skills. Modifiable risk factors of psychosis and catatonia were addressed during hospitalization through development of new coping skills, family meeting, safety planning, and medication adjustments. Risk Factors Assessment Male: Yes : Yes Do You Have Access To A Gun?: No Mental Health Diagnoses: Yes Substance Use Disorders: Yes Previous Attempt: No Previous Psychiatric Hospitalization: Yes Hopelessness: No Protective Factors Assessment Employed: Yes ([employer]) Stable Relationships: Yes Supportive Family: Yes Tobacco Cessation at Discharge Tobacco Cessation Medication Prescribed at Discharge: Offered & Pt Refused Antipsychotic Medications Patient was discharged on cross-taper of Invega Sustenna SHEETS from seroquel qhs po with current ongoing taper of seroquel with goal of Invega Sustenna monotherapy. Recommend ongoing taper of seroquel po in the outpatient setting. Discharge Data Consultations 03/14/22 14:27 Consult Psychiatry Stat Lab Results 03/13/22 03/13/22 03/13/22 16:45 16:45 16:45 WBC 13.22 H RBC 5.37 Hgb 15.6 Hct 45.4 MCV 84.5 MCH 29.1 MCHC 34.4 RDW Std Deviation 38.5 RDW Coeff of Shirin 12.7 Plt Count 296 MPV 9.7 Immature Gran % (Auto) 0.2 Neut % (Auto) 85.5 Lymph % (Auto) 8.4 Moody % (Auto) 5.4 Eos % (Auto) 0.3 Baso % (Auto) 0.2 Neut # (Auto) 11.30 H Lymph # (Auto) 1.11 L Moody # (Auto) 0.71 Eos # (Auto) 0.04 Baso # (Auto) 0.03 Immature Gran # (Auto) 0.03 H Sodium 139 Potassium 3.6 Chloride 102 Carbon Dioxide 20 L Anion Gap 17 H BUN 24 H Creatinine 0.89 Est Cr Clr Drug Dosing 121.9 Est GFR ( Amer) 130.2 Est GFR (Non-Af Amer) 112.3 BUN/Creatinine Ratio 27.0 H Glucose 211 H POC Glucose Calcium 9.2 Total Bilirubin 1.5 H AST 51 H ALT 27 Alkaline Phosphatase 80 Total Protein 7.6 Albumin 4.5 Globulin 3.1 Albumin/Globulin Ratio 1.5 Triglycerides Cholesterol LDL Cholesterol, Calc VLDL Cholesterol, Calc HDL Cholesterol Cholesterol/HDL Ratio TSH 1.114 Urine Color Urine Appearance Urine pH Ur Specific Placedo Urine Protein Urine Glucose (UA) Urine Ketones Urine Blood Urine Nitrite Urine Bilirubin Urine Urobilinogen Ur Leukocyte Esterase Urine WBC (Auto) Urine RBC (Auto) U Hyaline Cast (Auto) U Epithel Cells (Auto) Urine Bacteria (Auto) Urine Sperm Salicylates Urine Opiates Screen Ur Methadone, Qual Acetaminophen Urine Barbiturates Ur Phencyclidine (PCP) U Amphetamin/Meth Scrn MDMA (Ecstasy) Screen U Benzodiazepines Scrn Ur Cocaine Metabolite U Marijuana (THC) Screen Ethyl Alcohol mg/dL SARS-CoV-2, RNA, NAAT 03/13/22 03/13/22 03/13/22 16:45 16:45 16:45 WBC RBC Hgb Hct MCV MCH MCHC RDW Std Deviation RDW Coeff of Shirin Plt Count MPV Immature Gran % (Auto) Neut % (Auto) Lymph % (Auto) Moody % (Auto) Eos % (Auto) Baso % (Auto) Neut # (Auto) Lymph # (Auto) Moody # (Auto) Eos # (Auto) Baso # (Auto) Immature Gran # (Auto) Sodium Potassium Chloride Carbon Dioxide Anion Gap BUN Creatinine Est Cr Clr Drug Dosing Est GFR ( Amer) Est GFR (Non-Af Amer) BUN/Creatinine Ratio Glucose POC Glucose Calcium Total Bilirubin AST ALT Alkaline Phosphatase Total Protein Albumin Globulin Albumin/Globulin Ratio Triglycerides Cholesterol LDL Cholesterol, Calc VLDL Cholesterol, Calc HDL Cholesterol Cholesterol/HDL Ratio TSH Urine Color Urine Appearance Urine pH Ur Specific [place] Urine Protein Urine Glucose (UA) Urine Ketones Urine Blood Urine Nitrite Urine Bilirubin Urine Urobilinogen Ur Leukocyte Esterase Urine WBC (Auto) Urine RBC (Auto) U Hyaline Cast (Auto) U Epithel Cells (Auto) Urine Bacteria (Auto) Urine Sperm Salicylates < 3.0 L Urine Opiates Screen Ur Methadone, Qual Acetaminophen < 3 L Urine Barbiturates Ur Phencyclidine (PCP) U Amphetamin/Meth Scrn MDMA (Ecstasy) Screen U Benzodiazepines Scrn Ur Cocaine Metabolite U Marijuana (THC) Screen Ethyl Alcohol mg/dL 95.2 H SARS-CoV-2, RNA, NAAT NEGATIVE 03/13/22 03/13/22 03/13/22 19:15 19:15 20:32 WBC RBC Hgb Hct MCV MCH MCHC RDW Std Deviation RDW Coeff of Shirin Plt Count MPV Immature Gran % (Auto) Neut % (Auto) Lymph % (Auto) Moody % (Auto) Eos % (Auto) Baso % (Auto) Neut # (Auto) Lymph # (Auto) Moody # (Auto) Eos # (Auto) Baso # (Auto) Immature Gran # (Auto) Sodium 140 Potassium 3.4 L Chloride 108 H Carbon Dioxide 22 Anion Gap 10 BUN 18 Creatinine 0.65 Est Cr Clr Drug Dosing 166.9 Est GFR ( Amer) 148.2 Est GFR (Non-Af Amer) 127.8 BUN/Creatinine Ratio 27.7 H Glucose 66 L POC Glucose Calcium 8.0 L Total Bilirubin AST ALT Alkaline Phosphatase Total Protein Albumin Globulin Albumin/Globulin Ratio Triglycerides Cholesterol LDL Cholesterol, Calc VLDL Cholesterol, Calc HDL Cholesterol Cholesterol/HDL Ratio TSH Urine Color Dark Yellow Urine Appearance Clear Urine pH 5.5 Ur Specific [place] 1.023 Urine Protein Trace H Urine Glucose (UA) Negative Urine Ketones 3+ H Urine Blood Negative Urine Nitrite Negative Urine Bilirubin Negative Urine Urobilinogen Negative Ur Leukocyte Esterase Trace H Urine WBC (Auto) 1-5 Urine RBC (Auto) 0-4 U Hyaline Cast (Auto) >30 H U Epithel Cells (Auto) 0-5 Urine Bacteria (Auto) Negative Urine Sperm Present A Salicylates Urine Opiates Screen Neg Ur Methadone, Qual Neg Acetaminophen Urine Barbiturates Neg Ur Phencyclidine (PCP) Neg U Amphetamin/Meth Scrn Neg MDMA (Ecstasy) Screen Neg U Benzodiazepines Scrn Neg Ur Cocaine Metabolite Neg U Marijuana (THC) Screen Neg Ethyl Alcohol mg/dL SARS-CoV-2, RNA, NAAT 03/13/22 03/14/22 03/14/22 22:09 00:12 10:05 WBC RBC Hgb Hct MCV MCH MCHC RDW Std Deviation RDW Coeff of Shirin Plt Count MPV Immature Gran % (Auto) Neut % (Auto) Lymph % (Auto) Moody % (Auto) Eos % (Auto) Baso % (Auto) Neut # (Auto) Lymph # (Auto) Moody # (Auto) Eos # (Auto) Baso # (Auto) Immature Gran # (Auto) Sodium Potassium Chloride Carbon Dioxide Anion Gap BUN Creatinine Est Cr Clr Drug Dosing Est GFR ( Amer) Est GFR (Non-Af Amer) BUN/Creatinine Ratio Glucose POC Glucose 86 77 118 H Calcium Total Bilirubin AST ALT Alkaline Phosphatase Total Protein Albumin Globulin Albumin/Globulin Ratio Triglycerides Cholesterol LDL Cholesterol, Calc VLDL Cholesterol, Calc HDL Cholesterol Cholesterol/HDL Ratio TSH Urine Color Urine Appearance Urine pH Ur Specific [place] Urine Protein Urine Glucose (UA) Urine Ketones Urine Blood Urine Nitrite Urine Bilirubin Urine Urobilinogen Ur Leukocyte Esterase Urine WBC (Auto) Urine RBC (Auto) U Hyaline Cast (Auto) U Epithel Cells (Auto) Urine Bacteria (Auto) Urine Sperm Salicylates Urine Opiates Screen Ur Methadone, Qual Acetaminophen Urine Barbiturates Ur Phencyclidine (PCP) U Amphetamin/Meth Scrn MDMA (Ecstasy) Screen U Benzodiazepines Scrn Ur Cocaine Metabolite U Marijuana (THC) Screen Ethyl Alcohol mg/dL SARS-CoV-2, RNA, NAAT 03/14/22 03/14/22 03/15/22 17:25 20:53 10:14 WBC RBC Hgb Hct MCV MCH MCHC RDW Std Deviation RDW Coeff of Sihrin Plt Count MPV Immature Gran % (Auto) Neut % (Auto) Lymph % (Auto) Moody % (Auto) Eos % (Auto) Baso % (Auto) Neut # (Auto) Lymph # (Auto) Moody # (Auto) Eos # (Auto) Baso # (Auto) Immature Gran # (Auto) Sodium Potassium Chloride Carbon Dioxide Anion Gap BUN Creatinine Est Cr Clr Drug Dosing Est GFR ( Amer) Est GFR (Non-Af Amer) BUN/Creatinine Ratio Glucose POC Glucose 77 142 H 90 Calcium Total Bilirubin AST ALT Alkaline Phosphatase Total Protein Albumin Globulin Albumin/Globulin Ratio Triglycerides Cholesterol LDL Cholesterol, Calc VLDL Cholesterol, Calc HDL Cholesterol Cholesterol/HDL Ratio TSH Urine Color Urine Appearance Urine pH Ur Specific [place] Urine Protein Urine Glucose (UA) Urine Ketones Urine Blood Urine Nitrite Urine Bilirubin Urine Urobilinogen Ur Leukocyte Esterase Urine WBC (Auto) Urine RBC (Auto) U Hyaline Cast (Auto) U Epithel Cells (Auto) Urine Bacteria (Auto) Urine Sperm Salicylates Urine Opiates Screen Ur Methadone, Qual Acetaminophen Urine Barbiturates Ur Phencyclidine (PCP) U Amphetamin/Meth Scrn MDMA (Ecstasy) Screen U Benzodiazepines Scrn Ur Cocaine Metabolite U Marijuana (THC) Screen Ethyl Alcohol mg/dL SARS-CoV-2, RNA, NAAT 03/15/22 03/15/22 03/15/22 12:54 18:11 21:44 WBC RBC Hgb Hct MCV MCH MCHC RDW Std Deviation RDW Coeff of Shirin Plt Count MPV Immature Gran % (Auto) Neut % (Auto) Lymph % (Auto) Moody % (Auto) Eos % (Auto) Baso % (Auto) Neut # (Auto) Lymph # (Auto) Moody # (Auto) Eos # (Auto) Baso # (Auto) Immature Gran # (Auto) Sodium Potassium Chloride Carbon Dioxide Anion Gap BUN Creatinine Est Cr Clr Drug Dosing Est GFR ( Amer) Est GFR (Non-Af Amer) BUN/Creatinine Ratio Glucose POC Glucose 88 119 H 135 H Calcium Total Bilirubin AST ALT Alkaline Phosphatase Total Protein Albumin Globulin Albumin/Globulin Ratio Triglycerides Cholesterol LDL Cholesterol, Calc VLDL Cholesterol, Calc HDL Cholesterol Cholesterol/HDL Ratio TSH Urine Color Urine Appearance Urine pH Ur Specific [place] Urine Protein Urine Glucose (UA) Urine Ketones Urine Blood Urine Nitrite Urine Bilirubin Urine Urobilinogen Ur Leukocyte Esterase Urine WBC (Auto) Urine RBC (Auto) U Hyaline Cast (Auto) U Epithel Cells (Auto) Urine Bacteria (Auto) Urine Sperm Salicylates Urine Opiates Screen Ur Methadone, Qual Acetaminophen Urine Barbiturates Ur Phencyclidine (PCP) U Amphetamin/Meth Scrn MDMA (Ecstasy) Screen U Benzodiazepines Scrn Ur Cocaine Metabolite U Marijuana (THC) Screen Ethyl Alcohol mg/dL SARS-CoV-2, RNA, NAAT 03/16/22 03/16/22 03/16/22 06:28 14:27 16:28 WBC RBC Hgb Hct MCV MCH MCHC RDW Std Deviation RDW Coeff of Shirin Plt Count MPV Immature Gran % (Auto) Neut % (Auto) Lymph % (Auto) Moody % (Auto) Eos % (Auto) Baso % (Auto) Neut # (Auto) Lymph # (Auto) Moody # (Auto) Eos # (Auto) Baso # (Auto) Immature Gran # (Auto) Sodium Potassium Chloride Carbon Dioxide Anion Gap BUN Creatinine Est Cr Clr Drug Dosing Est GFR ( Amer) Est GFR (Non-Af Amer) BUN/Creatinine Ratio Glucose POC Glucose 83 73 81 Calcium Total Bilirubin AST ALT Alkaline Phosphatase Total Protein Albumin Globulin Albumin/Globulin Ratio Triglycerides Cholesterol LDL Cholesterol, Calc VLDL Cholesterol, Calc HDL Cholesterol Cholesterol/HDL Ratio TSH Urine Color Urine Appearance Urine pH Ur Specific [place] Urine Protein Urine Glucose (UA) Urine Ketones Urine Blood Urine Nitrite Urine Bilirubin Urine Urobilinogen Ur Leukocyte Esterase Urine WBC (Auto) Urine RBC (Auto) U Hyaline Cast (Auto) U Epithel Cells (Auto) Urine Bacteria (Auto) Urine Sperm Salicylates Urine Opiates Screen Ur Methadone, Qual Acetaminophen Urine Barbiturates Ur Phencyclidine (PCP) U Amphetamin/Meth Scrn MDMA (Ecstasy) Screen U Benzodiazepines Scrn Ur Cocaine Metabolite U Marijuana (THC) Screen Ethyl Alcohol mg/dL SARS-CoV-2, RNA, NAAT 03/17/22 03/17/22 03/19/22 09:53 09:53 07:59 WBC 6.06 RBC 5.15 Hgb 15.1 Hct 44.2 MCV 85.8 MCH 29.3 MCHC 34.2 RDW Std Deviation 38.5 RDW Coeff of Shirin 12.3 Plt Count 279 MPV 9.9 Immature Gran % (Auto) 0.2 Neut % (Auto) 62.5 Lymph % (Auto) 25.4 Moody % (Auto) 6.1 Eos % (Auto) 5.3 Baso % (Auto) 0.5 Neut # (Auto) 3.79 Lymph # (Auto) 1.54 Moody # (Auto) 0.37 Eos # (Auto) 0.32 Baso # (Auto) 0.03 Immature Gran # (Auto) 0.01 Sodium 141 138 Potassium 3.9 4.1 Chloride 107 107 Carbon Dioxide 27 27 Anion Gap 7 4 BUN 13 20 Creatinine 0.71 0.73 Est Cr Clr Drug Dosing 152.8 148.6 Est GFR ( Amer) 142.9 141.3 Est GFR (Non-Af Amer) 123.3 121.9 BUN/Creatinine Ratio 18.3 27.4 H Glucose 88 87 POC Glucose Calcium 8.0 L 9.2 Total Bilirubin 0.4 0.4 AST 24 26 ALT 25 35 Alkaline Phosphatase 68 62 Total Protein 6.4 6.8 Albumin 3.7 4.1 Globulin 2.7 2.7 Albumin/Globulin Ratio 1.4 1.5 Triglycerides 184 H Cholesterol 131 LDL Cholesterol, Calc 53 VLDL Cholesterol, Calc 37 H HDL Cholesterol 41 Cholesterol/HDL Ratio 3.2 TSH Urine Color Urine Appearance Urine pH Ur Specific [place] Urine Protein Urine Glucose (UA) Urine Ketones Urine Blood Urine Nitrite Urine Bilirubin Urine Urobilinogen Ur Leukocyte Esterase Urine WBC (Auto) Urine RBC (Auto) U Hyaline Cast (Auto) U Epithel Cells (Auto) Urine Bacteria (Auto) Urine Sperm Salicylates Urine Opiates Screen Ur Methadone, Qual Acetaminophen Urine Barbiturates Ur Phencyclidine (PCP) U Amphetamin/Meth Scrn MDMA (Ecstasy) Screen U Benzodiazepines Scrn Ur Cocaine Metabolite U Marijuana (THC) Screen Ethyl Alcohol mg/dL SARS-CoV-2, RNA, NAAT 03/19/22 03/19/22 03/20/22 08:30 13:44 06:16 WBC RBC Hgb Hct MCV MCH MCHC RDW Std Deviation RDW Coeff of Shirin Plt Count MPV Immature Gran % (Auto) Neut % (Auto) Lymph % (Auto) Moody % (Auto) Eos % (Auto) Baso % (Auto) Neut # (Auto) Lymph # (Auto) Moody # (Auto) Eos # (Auto) Baso # (Auto) Immature Gran # (Auto) Sodium Potassium Chloride Carbon Dioxide Anion Gap BUN Creatinine Est Cr Clr Drug Dosing Est GFR ( Amer) Est GFR (Non-Af Amer) BUN/Creatinine Ratio Glucose POC Glucose 101 H 115 H 88 Calcium Total Bilirubin AST ALT Alkaline Phosphatase Total Protein Albumin Globulin Albumin/Globulin Ratio Triglycerides Cholesterol LDL Cholesterol, Calc VLDL Cholesterol, Calc HDL Cholesterol Cholesterol/HDL Ratio TSH Urine Color Urine Appearance Urine pH Ur Specific [place] Urine Protein Urine Glucose (UA) Urine Ketones Urine Blood Urine Nitrite Urine Bilirubin Urine Urobilinogen Ur Leukocyte Esterase Urine WBC (Auto) Urine RBC (Auto) U Hyaline Cast (Auto) U Epithel Cells (Auto) Urine Bacteria (Auto) Urine Sperm Salicylates Urine Opiates Screen Ur Methadone, Qual Acetaminophen Urine Barbiturates Ur Phencyclidine (PCP) U Amphetamin/Meth Scrn MDMA (Ecstasy) Screen U Benzodiazepines Scrn Ur Cocaine Metabolite U Marijuana (THC) Screen Ethyl Alcohol mg/dL SARS-CoV-2, RNA, NAAT 03/20/22 03/21/22 03/22/22 10:41 06:58 06:34 WBC RBC Hgb Hct MCV MCH MCHC RDW Std Deviation RDW Coeff of Shirin Plt Count MPV Immature Gran % (Auto) Neut % (Auto) Lymph % (Auto) Moody % (Auto) Eos % (Auto) Baso % (Auto) Neut # (Auto) Lymph # (Auto) Moody # (Auto) Eos # (Auto) Baso # (Auto) Immature Gran # (Auto) Sodium Potassium Chloride Carbon Dioxide Anion Gap BUN Creatinine Est Cr Clr Drug Dosing Est GFR ( Amer) Est GFR (Non-Af Amer) BUN/Creatinine Ratio Glucose POC Glucose 101 H 86 77 Calcium Total Bilirubin AST ALT Alkaline Phosphatase Total Protein Albumin Globulin Albumin/Globulin Ratio Triglycerides Cholesterol LDL Cholesterol, Calc VLDL Cholesterol, Calc HDL Cholesterol Cholesterol/HDL Ratio TSH Urine Color Urine Appearance Urine pH Ur Specific Pl[place] Urine Protein Urine Glucose (UA) Urine Ketones Urine Blood Urine Nitrite Urine Bilirubin Urine Urobilinogen Ur Leukocyte Esterase Urine WBC (Auto) Urine RBC (Auto) U Hyaline Cast (Auto) U Epithel Cells (Auto) Urine Bacteria (Auto) Urine Sperm Salicylates Urine Opiates Screen Ur Methadone, Qual Acetaminophen Urine Barbiturates Ur Phencyclidine (PCP) U Amphetamin/Meth Scrn MDMA (Ecstasy) Screen U Benzodiazepines Scrn Ur Cocaine Metabolite U Marijuana (THC) Screen Ethyl Alcohol mg/dL SARS-CoV-2, RNA, NAAT 03/23/22 03/24/22 03/25/22 06:29 06:03 06:18 WBC RBC Hgb Hct MCV MCH MCHC RDW Std Deviation RDW Coeff of Shirin Plt Count MPV Immature Gran % (Auto) Neut % (Auto) Lymph % (Auto) Moody % (Auto) Eos % (Auto) Baso % (Auto) Neut # (Auto) Lymph # (Auto) Moody # (Auto) Eos # (Auto) Baso # (Auto) Immature Gran # (Auto) Sodium Potassium Chloride Carbon Dioxide Anion Gap BUN Creatinine Est Cr Clr Drug Dosing Est GFR ( Amer) Est GFR (Non-Af Amer) BUN/Creatinine Ratio Glucose POC Glucose 124 H 95 92 Calcium Total Bilirubin AST ALT Alkaline Phosphatase Total Protein Albumin Globulin Albumin/Globulin Ratio Triglycerides Cholesterol LDL Cholesterol, Calc VLDL Cholesterol, Calc HDL Cholesterol Cholesterol/HDL Ratio TSH Urine Color Urine Appearance Urine pH Ur Specific [place] Urine Protein Urine Glucose (UA) Urine Ketones Urine Blood Urine Nitrite Urine Bilirubin Urine Urobilinogen Ur Leukocyte Esterase Urine WBC (Auto) Urine RBC (Auto) U Hyaline Cast (Auto) U Epithel Cells (Auto) Urine Bacteria (Auto) Urine Sperm Salicylates Urine Opiates Screen Ur Methadone, Qual Acetaminophen Urine Barbiturates Ur Phencyclidine (PCP) U Amphetamin/Meth Scrn MDMA (Ecstasy) Screen U Benzodiazepines Scrn Ur Cocaine Metabolite U Marijuana (THC) Screen Ethyl Alcohol mg/dL SARS-CoV-2, RNA, NAAT 03/26/22 03/27/22 03/28/22 08:36 06:33 06:17 WBC RBC Hgb Hct MCV MCH MCHC RDW Std Deviation RDW Coeff of Shirin Plt Count MPV Immature Gran % (Auto) Neut % (Auto) Lymph % (Auto) Moody % (Auto) Eos % (Auto) Baso % (Auto) Neut # (Auto) Lymph # (Auto) Moody # (Auto) Eos # (Auto) Baso # (Auto) Immature Gran # (Auto) Sodium Potassium Chloride Carbon Dioxide Anion Gap BUN Creatinine Est Cr Clr Drug Dosing Est GFR ( Amer) Est GFR (Non-Af Amer) BUN/Creatinine Ratio Glucose POC Glucose 82 87 72 Calcium Total Bilirubin AST ALT Alkaline Phosphatase Total Protein Albumin Globulin Albumin/Globulin Ratio Triglycerides Cholesterol LDL Cholesterol, Calc VLDL Cholesterol, Calc HDL Cholesterol Cholesterol/HDL Ratio TSH Urine Color Urine Appearance Urine pH Ur Specific Placedo Urine Protein Urine Glucose (UA) Urine Ketones Urine Blood Urine Nitrite Urine Bilirubin Urine Urobilinogen Ur Leukocyte Esterase Urine WBC (Auto) Urine RBC (Auto) U Hyaline Cast (Auto) U Epithel Cells (Auto) Urine Bacteria (Auto) Urine Sperm Salicylates Urine Opiates Screen Ur Methadone, Qual Acetaminophen Urine Barbiturates Ur Phencyclidine (PCP) U Amphetamin/Meth Scrn MDMA (Ecstasy) Screen U Benzodiazepines Scrn Ur Cocaine Metabolite U Marijuana (THC) Screen Ethyl Alcohol mg/dL SARS-CoV-2, RNA, NAAT 03/29/22 03/29/22 03/30/22 06:59 18:34 12:14 WBC RBC Hgb Hct MCV MCH MCHC RDW Std Deviation RDW Coeff of Shirin Plt Count MPV Immature Gran % (Auto) Neut % (Auto) Lymph % (Auto) Moody % (Auto) Eos % (Auto) Baso % (Auto) Neut # (Auto) Lymph # (Auto) Moody # (Auto) Eos # (Auto) Baso # (Auto) Immature Gran # (Auto) Sodium Potassium Chloride Carbon Dioxide Anion Gap BUN Creatinine Est Cr Clr Drug Dosing Est GFR ( Amer) Est GFR (Non-Af Amer) BUN/Creatinine Ratio Glucose POC Glucose 99 89 76 Calcium Total Bilirubin AST ALT Alkaline Phosphatase Total Protein Albumin Globulin Albumin/Globulin Ratio Triglycerides Cholesterol LDL Cholesterol, Calc VLDL Cholesterol, Calc HDL Cholesterol Cholesterol/HDL Ratio TSH Urine Color Urine Appearance Urine pH Ur Specific Placedo Urine Protein Urine Glucose (UA) Urine Ketones Urine Blood Urine Nitrite Urine Bilirubin Urine Urobilinogen Ur Leukocyte Esterase Urine WBC (Auto) Urine RBC (Auto) U Hyaline Cast (Auto) U Epithel Cells (Auto) Urine Bacteria (Auto) Urine Sperm Salicylates Urine Opiates Screen Ur Methadone, Qual Acetaminophen Urine Barbiturates Ur Phencyclidine (PCP) U Amphetamin/Meth Scrn MDMA (Ecstasy) Screen U Benzodiazepines Scrn Ur Cocaine Metabolite U Marijuana (THC) Screen Ethyl Alcohol mg/dL SARS-CoV-2, RNA, NAAT 03/30/22 03/31/22 04/01/22 14:13 06:37 06:30 WBC RBC Hgb Hct MCV MCH MCHC RDW Std Deviation RDW Coeff of Shirin Plt Count MPV Immature Gran % (Auto) Neut % (Auto) Lymph % (Auto) Moody % (Auto) Eos % (Auto) Baso % (Auto) Neut # (Auto) Lymph # (Auto) Moody # (Auto) Eos # (Auto) Baso # (Auto) Immature Gran # (Auto) Sodium Potassium Chloride Carbon Dioxide Anion Gap BUN Creatinine Est Cr Clr Drug Dosing Est GFR ( Amer) Est GFR (Non-Af Amer) BUN/Creatinine Ratio Glucose POC Glucose 92 79 122 H Calcium Total Bilirubin AST ALT Alkaline Phosphatase Total Protein Albumin Globulin Albumin/Globulin Ratio Triglycerides Cholesterol LDL Cholesterol, Calc VLDL Cholesterol, Calc HDL Cholesterol Cholesterol/HDL Ratio TSH Urine Color Urine Appearance Urine pH Ur Specific Placedo Urine Protein Urine Glucose (UA) Urine Ketones Urine Blood Urine Nitrite Urine Bilirubin Urine Urobilinogen Ur Leukocyte Esterase Urine WBC (Auto) Urine RBC (Auto) U Hyaline Cast (Auto) U Epithel Cells (Auto) Urine Bacteria (Auto) Urine Sperm Salicylates Urine Opiates Screen Ur Methadone, Qual Acetaminophen Urine Barbiturates Ur Phencyclidine (PCP) U Amphetamin/Meth Scrn MDMA (Ecstasy) Screen U Benzodiazepines Scrn Ur Cocaine Metabolite U Marijuana (THC) Screen Ethyl Alcohol mg/dL SARS-CoV-2, RNA, NAAT 04/02/22 06:49 WBC RBC Hgb Hct MCV MCH MCHC RDW Std Deviation RDW Coeff of Shirin Plt Count MPV Immature Gran % (Auto) Neut % (Auto) Lymph % (Auto) Moody % (Auto) Eos % (Auto) Baso % (Auto) Neut # (Auto) Lymph # (Auto) Moody # (Auto) Eos # (Auto) Baso # (Auto) Immature Gran # (Auto) Sodium Potassium Chloride Carbon Dioxide Anion Gap BUN Creatinine Est Cr Clr Drug Dosing Est GFR ( Amer) Est GFR (Non-Af Amer) BUN/Creatinine Ratio Glucose POC Glucose 77 Calcium Total Bilirubin AST ALT Alkaline Phosphatase Total Protein Albumin Globulin Albumin/Globulin Ratio Triglycerides Cholesterol LDL Cholesterol, Calc VLDL Cholesterol, Calc HDL Cholesterol Cholesterol/HDL Ratio TSH Urine Color Urine Appearance Urine pH Ur Specific Placedo Urine Protein Urine Glucose (UA) Urine Ketones Urine Blood Urine Nitrite Urine Bilirubin Urine Urobilinogen Ur Leukocyte Esterase Urine WBC (Auto) Urine RBC (Auto) U Hyaline Cast (Auto) U Epithel Cells (Auto) Urine Bacteria (Auto) Urine Sperm Salicylates Urine Opiates Screen Ur Methadone, Qual Acetaminophen Urine Barbiturates Ur Phencyclidine (PCP) U Amphetamin/Meth Scrn MDMA (Ecstasy) Screen U Benzodiazepines Scrn Ur Cocaine Metabolite U Marijuana (THC) Screen Ethyl Alcohol mg/dL SARS-CoV-2, RNA, NAAT Hospital Course (1) Catatonia: (2) Schizoaffective disorder: Plan 04/01/22: Invega SHEETS tomorrow. Discontinue Invega 3mg po. 03/31/22: 304 inpatient commitment granted. Decrease seroquel to 300mg qhs. Increase ativan to 1mg TID. Continue with Invega 3mg qd. 03/30/22: will hold on writing for next dose Invegga sustenna until can reassess for potential side effects tomorrow. Failed Ativan and Seroquel taper attempts. 304 hearing in am. 03/29/22: patient appears to have done best on Ativan 1 mg BID, he will likely self taper after discharge. Sleep unchanged on lower dose of Seroquel. Monitor for akathisia (he is alreadly on beta everton for HTN). 03/28/22: decrease Ativan to 0.5 mg BID to taper with hope to discontinue prior to discharge. Seroquel doesn't necessarily seem to help sleep and may be contributing to am sedation so will taper to 200 mg tonight as trial, part icularly as receiving Invega sustenna loading dose with plan for Invega 3 mg daily until 2nd injection. 03/27/22: continue current meds and tx plan, injection Invega sustenna tomorrow, patient remains agreeable. He was resistant to case monitor but did agree to have meeting rescheduled for 03/31/22. 03/26/22: risks/benefits/alternatives reviewed as able to d/c Risperdal in favor of a trial of Invega. Will give 6 mg today as not sleeping well and patient tolerated 3 mg or more of Risperdal in the past with need to assess tolerability for loading with SHEETS prior to discharge. filed for 304 outpatient commitment. 03/25/22: check on cost of SHEETS (perhaps Invega a better option as monthly), he is unwilling for additional medication changes today. family meeting given LOS and complex discharge planning. 03/24/22: resume Ativan 1 mg BID with meals for better coverage, resume Seroquel 400 mg hs with plan to titrate Risperidone. Patient does not want SHEETS. Referral to FEP program at [place]. 03/23/22: Continue with ativan 0.5mg TID. Decrease seroquel to 300mg qhs. Start risperidone 0.5mg BID. 03/22/22: Decrease ativan to 0.5mg TID. Continue with seroquel 400mg qhs. 03/21/22: Continue current medications and tx plan. 03/20/22: Continue current medications and tx plan. 03/19/22: Increase seroquel to 400mg qhs. 03/18/22: The patient was admitted to the [facility] ([facility] inpatient mental health unit) on q15 min checks (behavioral with suicide precautions) for safety. The patient will participate in group, recreational, and milieu therapies and will be offered additional individual and family sessions as clinically appropriate. -Increase to seroquel 300mg qhs -Ativan 1 mg TID for catatonia, intake is improving and moving more easily -Nicotine replacement gum -Schedule 303 commitment hearing given ongoing psychosis with poor intake and severely impaired insight and judgment as 302 commitment expires at 3am tomorrow -fasting lipid panel and glucose tomorrow morning Mental Health & Subst Abuse Tx Psychiatrist Name of Psychiatrist: Miley Williamson PA-C Psychiatrist's Date of Appointment with Psychiatrist: 04/07/22 Time of Appointment with Psychiatrist: 1:00pm Psychiatric Appointment Comment: [address] , [place] [address] [employer] Name of C[facility]ce [facility]: [facility] Phone Number for Crotch Piece B[employer]: [phone] Case Management Appointment Comment: will follow up with you when d/c to schedule reglar meetings Post Discharge Appointments Primary Care Physician Name Of Family Doctor: [facility] (will see Dr. Ambriz) Primary Care Date of Appointment with PCP: 04/03/22 Time of Appointment with PCP: 1:25 PM Provider Appointment Comment: [address] [place] [facility] [place] [address] Smoking Cessation Counseling Tobacco Cessation Medication Prescribed at Discharge: Offered & Pt Refused Contact Information Discharge Discharge Address: [address] [place] [id number] Discharge Plan Discharge Items Patient Disposition: Home - Self-Care Reason For Visit: UNSPECIFIED PSYCHOSIS Discharge Diagnosis: Schizoaffective Disorder Activity: Resume your previous activity Non-emergency contact: Primary Care Provider, Psychiatrist and Home Care And Home Health Aides Teacher Call non-emergency contact if: you have any medication questions and your symptoms worsen Follow-up/Referrals: Yahir Gutierrez MD [Primary Care Provider] - Diet: Regular Addtl Attending Provider Instructions: SPECIAL CARE INSTRUCTIONS: 1. Follow through with your scheduled aftercare appointments. If unable to keep an appointment, please call to reschedule. 2. Take your medication only as prescribed. Medication should not be changed or stopped without the approval of your doctor. In the event of worsening symptoms or concerns about side effects, contact your doctor immediately. 3. Utilize new healthy coping skills, anger management skills, and stress management skills learned during your hospitalization. Journal feelings and process them with a support person. Identify stressors or situations that may result in relapse, deterioration or inappropriate behaviors and develop a plan to deal with those issues. 4. If your coping skills are ineffective and you are in crisis, contact your outpatient providers for direction. If unable to reach your providers, please call the [facility] CRISIS LINE AT , go to the [facility] walk-in center at [address], [address], [place], or go to the closest Emergency Room. 5. Avoid alcohol and un-prescribed drugs. 6. You have been provided with the Mental Health Advance Directives Pamphlet for your review. 7. Your condition is stable for discharge to outpatient level of care, but recovery is an ongoing process. Ifthoughts to harm yourself or others return, follow the safety plan developed during your stay. Planning for a safe return home includes securing weapons. Our treatment team recommends weaponsbe removed from the home until your outpatient provider reassesses your progress. In rare cases where the items themselvescannot be removed, guns and ammunitionshould be secured separatelyand keys stored by a reliable personoutside of the home. If you were admitted on an involuntary commitment, the police or other legal authorities may be involved in this process. AFTERCARE APPOINTMENTS: * Please call your insurance company prior to your scheduled appointment to confirm your aftercare providers are covered. Take your insurance information to your ap pointments. WHO TO CALL AND WHEN: Medical Emergencies: For questions or emergencies related to your hospital stay, please contact the Inpatient Behavioral Health Unit at [phone]. A lump maker is on-call 24/11 for the Behavioral Health Unit for emergencies At any time you feel your situation is an emergency, you may also call 911 immediately. Pending Studies at Discharge: No Stand-Alone Forms: My [facility] [employer] Medications and DC Order Prescriptions: New Invega Sustenna 156 mg/mL syringe 156 mg IM Q30D Qty: 1 0RF atorvastatin 40 mg Tablet 40 mg PO QAM 30 Days Qty: 30 0RF quetiapine 300 mg Tablet 300 mg PO HS 30 Days Qty: 30 0RF atenolol 25 mg Tablet 25 mg PO QAM 30 Days Qty: 30 0RF lorazepam 1 mg Tablet 1 mg PO TIDM 30 Days Qty: 30 0RF topiramate 50 mg Tablet 50 mg PO BID 30 Days Qty: 60 0RF lorazepam [Ativan] 1 mg tablet 1 mg PO TID 30 Days Qty: 90 0RF Discharge Orders: Discharge Order (Routine); Ordered 04/02/22 Ordered By: Rosalba Willson Admission Data Admit Date/Time: 03/17/22 12:18 Attending Provider: Rosalba Willson Admit Provider: Rosalba Willson Primary Care Provider: Yahir Gutierrez Other Providers: Rosalba Willson ; Sulema Guerra ; Edel Fuentes Other Interventions: Discharge Summary Assessment (RN) Last Done: 04/02/22 10:57 PSY Interdisciplinary Discharge Planning Last Done: 04/02/22 14:31 Coding Level of Care Code 44595 D/C day mgmt > 30 min Diagnoses Catatonia F06.1 Schizoaffective disorder F25.9 Time Spent (min) 35
== END 2022-04-02 15:50 | disposition home or self-care (01) | DRG 885 ==
LOC: ED 15:24 → SUATTDRO 03-17 12:18 → 3S 03-17 12:18